=== PATIENT | male | born 1950 | race Caucasian/White ===

== ENCOUNTER 2020-05-31 10:40 | Outpatient (REF) | payer MEDICARE, SELFPAY ==
[2020-05-31 11:58] LABS: Alanine Aminotransferase 27 U/L (0-40); Anion Gap 13 (12-20); Aspartate Amino Transferase 23 U/L (5-37); Blood Urea Nitrogen 9 mg/dL (9-16); Calcium 9.6 mg/dL (8.4-10.2); Carbon Dioxide 27 mmol/L (22-29); Chloride 98 mmol/L (96-108); Cholesterol 174 mg/dL; Estimated Glomerular Filt Rate > 60; Glucose Random 136 mg/dL (60-115); HDL Cholesterol 44 mg/dL; LDL Cholesterol Calculated 96 mg/dl; Potassium 5.4 mmol/l (3.3-5.1); Sodium 133 mmol/L (135-145); Triglycerides 174 mg/dL
== END 2020-05-31 10:41 | disposition home or self-care (01) ==
LOC: HO.LAB 10:40
PROVIDERS: PCP Internal Medicine; Visit Provider Internal Medicine Cardiovascular Disease
DX: I25.10 Atherosclerotic heart disease of native coronary artery without angina pectoris (principal)
CPT/HCPCS: 80048; 80061; 84450; 84460

== ENCOUNTER 2020-08-08 12:33 | Outpatient (REF) | payer MEDICARE, SELFPAY ==
[2020-08-08 14:53] LABS: Cholesterol 174 mg/dL; HDL Cholesterol 43 mg/dL; LDL Cholesterol Calculated 81 mg/dl; Triglycerides 252 mg/dL
== END 2020-08-08 12:34 | disposition home or self-care (01) ==
LOC: HO.LAB 12:33
PROVIDERS: Visit Provider Internal Medicine
DX: E78.5 Hyperlipidemia, unspecified (principal)
CPT/HCPCS: 80061

== ENCOUNTER 2020-12-10 08:45 | Outpatient (REF) | payer MEDICARE, OTHER, SELFPAY ==
[2020-12-10 10:04] LABS: Estimated Average Glucose 120 mg/dL; Hemoglobin A1c % 5.8 %
[2020-12-10 10:15] LABS: Cholesterol 176 mg/dL; HDL Cholesterol 42 mg/dL; LDL Cholesterol Calculated 96 mg/dl; Triglycerides 193 mg/dL
== END 2020-12-10 08:46 | disposition home or self-care (01) ==
LOC: HO.LAB 08:45
PROVIDERS: PCP Internal Medicine; Visit Provider Internal Medicine
DX: E11.9 Type 2 diabetes mellitus without complications (principal)
CPT/HCPCS: 36415; 80061; 83036

== ENCOUNTER 2022-02-17 07:27 | Outpatient (REF) | payer MEDICARE, OTHER, SELFPAY ==
[2022-02-17 08:53] LABS: Cholesterol 186 mg/dL; Glucose Fasting 157 mg/dL (60-99); HDL Cholesterol 45 mg/dL; LDL Cholesterol Calculated 97 mg/dl; Triglycerides 223 mg/dL
[2022-02-17 09:04] LABS: Estimated Average Glucose 126 mg/dL
== END 2022-02-17 07:28 | disposition home or self-care (01) ==
LOC: HO.LAB 07:27
PROVIDERS: PCP Internal Medicine; Visit Provider Internal Medicine
DX: Z00.00 Encounter for general adult medical examination without abnormal findings (principal); E11.65 Type 2 diabetes mellitus with hyperglycemia
CPT/HCPCS: 36415; 80061; 82947; 83036

== ENCOUNTER 2022-05-15 10:51 | Outpatient (REF) | payer MEDICARE, OTHER, SELFPAY ==
[2022-05-15 12:25] LABS: Estimated Average Glucose 123 mg/dL; Hemoglobin A1c % 5.9 %
[2022-05-15 13:02] LABS: Prostate Specific Antigen 1.28 ng/mL (<0.05-4.0)
[2022-05-15 13:20] LABS: Cholesterol 173 mg/dL; Glucose Fasting 122 mg/dL (60-99); HDL Cholesterol 40 mg/dL; LDL Cholesterol Calculated 92 mg/dl; Triglycerides 207 mg/dL
== END 2022-05-15 10:52 | disposition home or self-care (01) ==
LOC: HO.LAB 10:51
PROVIDERS: Absent Provider Internal Medicine; PCP Internal Medicine; Visit Provider Nurse Practitioner Family
DX: Z12.5 Encounter for screening for malignant neoplasm of prostate (principal); E11.9 Type 2 diabetes mellitus without complications; E78.5 Hyperlipidemia, unspecified
CPT/HCPCS: 36415; 80061; 82947; 83036; 84153

== ENCOUNTER 2023-02-18 07:36 | Outpatient (REF) | payer MEDICARE, OTHER, SELFPAY ==
[2023-02-18 07:49] LABS: MANUAL DIFF FLAG NO
[2023-02-18 08:51] LABS: Basophils Percent Auto 0.5 % (0-2); Eosinophils Absolute Auto 0.1 X10*3/uL (0.0-0.4); Eosinophils Percent Auto 1.9 % (0-4); Hematocrit 45.3 % (42.0-52.0); Hemoglobin 15.5 g/dl (14.0-18.0); Imm Gran Abs Auto 0.03 X10*3/uL (0.00-0.03); Imm Gran Pct Auto 0.5 % (0.0-0.4); Lymphocytes Absolute Auto 1.3 X10*3/uL (1.2-4.9); Lymphocytes Percent Auto 20.5 % (20-40); Mean Corpuscular HGB Conc 34.2 g/dl (31.0-36.0); Mean Corpuscular Hemoglobin 32.1 pg (27.0-33.0); Mean Corpuscular Volume 93.8 fL (80.0-98.0); Mean Platelet Volume 9.7 fL (9.4-12.4); Monocytes Absolute Auto 0.6 X10*3/uL (0.1-1.2); Monocytes Percent Auto 10.1 % (2-11); Neutrophils Absolute Auto 4.2 x10*3/uL (2.0-8.3); Neutrophils Percent Auto 66.5 % (45-73); Platelet Count 257 X10*3/uL (160-400); Red Blood Count 4.83 X10*6/uL (4.60-5.80); White Blood Count 6.3 X10*3/uL (4.8-10.8)
[2023-02-18 09:00] LABS: Estimated Average Glucose 123 mg/dL; Hemoglobin A1c % 5.9 %
[2023-02-18 09:41] LABS: Alanine Aminotransferase 38 U/L (0-40); Albumin Level 4.8 g/dL (3.5-5.0); Alkaline Phosphatase 55 U/L (39-117); Anion Gap 19 (12-20); Aspartate Amino Transferase 30 U/L (5-37); Bilirubin Total 2.7 mg/dL (0.0-1.0); Blood Urea Nitrogen 6 mg/dL (9-16); Calcium 10.1 mg/dL (8.4-10.2); Carbon Dioxide 21 mmol/L (22-29); Chloride 100 mmol/L (96-108); Cholesterol 160 mg/dL; Estimated Glomerular Filt Rate > 60; Glucose Fasting 160 mg/dL (60-99); HDL Cholesterol 44 mg/dL; LDL Cholesterol Calculated 69 mg/dl; Potassium 5.9 mmol/L (3.3-5.1); Sodium 134 mmol/L (135-145); Triglycerides 236 mg/dL
== END 2023-02-18 07:37 | disposition home or self-care (01) ==
LOC: HO.LAB 07:36
PROVIDERS: Absent Provider Internal Medicine Cardiovascular Disease; PCP Internal Medicine; Visit Provider Internal Medicine
DX: D64.9 Anemia, unspecified (principal); N28.9 Disorder of kidney and ureter, unspecified; E78.5 Hyperlipidemia, unspecified; R73.9 Hyperglycemia, unspecified
CPT/HCPCS: 36415; 80053; 80061; 83036; 85025

== ENCOUNTER 2023-03-02 08:35 | Outpatient (AMB) | payer MEDICARE, OTHER, SELFPAY ==
--- NOTE | 2023-03-02 08:41 | A.OFFPC_ITS ---
Vital Signs 03/02/23 08:42 Height 5 ft 5 in Weight 169 lb 6 oz BMI 28.2 BP 120/70 Blood Pressure Location Lt brachial Position Sitting Pulse 65 Pulse Source Pulse Oximeter Pulse Oximetry (%) 99 Oxygen Delivery Method Room Air Intake Visit Reasons: 6mth f/u Intake Note: Patient is here to follow up on DM, Hyperlipidemia, HTN. 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 per policy Accompanied by: Self / Same As Patient Allergies No Known Allergies Allergy (Verified 03/02/23 08:42) Medication List - Last Reconciled 03/02/23 by David Morton MD aspirin 81 mg PO DAILY atenolol 100 mg PO DAILY atorvastatin 80 mg PO DAILY blood sugar diagnostic (FreeStyle Lite Strips) test blood sugars once a day fluoxetine 20 mg PO DAILY lisinopril 40 mg PO DAILY metformin 1,000 mg (2 x 500 mg) PO BID Tobacco use date assessed: 03/02/23 Fall risk assessment: No Falls in past year Last assessed Fall Risk: 03/02/23 Dental Screening Dental Screen Date: 03/02/23 Did you have a dental visit in the last 12 months?: Yes Did you have a dental problem in the last 6 months where you did not have access to dental care?: No Was dental information given to patient?: Patient has dentist HPI 6mth f/u HPI Details DM HTN and hyperlipidemia; doing well; compliant [facility] Medical History Diabetes mellitus Diabetes mellitus with coincident hypertension Hyperlipidemia Hyperlipidemia associated with type 2 diabetes mellitus Pre-op exam Screening for prostate cancer Surgical History History of ankle surgery History of cataract surgery History of colonoscopy History of inguinal hernia repair History of rectal polypectomy Family History Father Stroke Mother Stroke Brother Colon polyps Brother Prostate cancer Brother CAD (coronary artery disease) Social History Housing: House Alcohol intake: current Alcohol intake frequency: 0-2 drinks per day Patient Tobacco Use Status: Never used Tobacco e-Cigarette/Vaping Use: Never Used Second Hand Smoke Exposure: No service: Yes Current occupational status: retired Cognitive needs: No Hearing needs: No Vision needs: No Questionnaire PHQ-9 Over the last 2 weeks, how often have you been bothered by any of the following problems? Depression Screening Interpretation: Negative Source: Developed by Drs. Todd Martinez, Shyann Braga, Tae Torrez and colleagues, with an educational kaylin from [employer]). Thrive Questionnaire Date Thrive assessed: 09/01/22 Currently or been in a relationship where the following occur: no concerns reported PJ-7 AMB Questionnaire PJ-7 Date PJ - 7 assessed: 09/01/22 Source: Developed by Drs. Todd Martinez, Shyann Braga, Tae Torrez and colleagues, with an educational kaylin from [employer] ([employer]). Review of Systems Const Denies chills, Denies headache(s) and Denies weight loss ENT Denies headache(s) Card Denies chest pain, Denies syncope, Denies irregular heart rhythm and Denies dyspnea Resp Denies chest congestion, Denies cough and Denies dyspnea GI Denies abdominal pain, Denies change in stool character, Denies nausea and Denies vomiting Musc Denies deformity and Denies joint swelling Neuro Denies syncope and Denies headache(s) Physical exam (Primary Care) Vital Signs: Last Vital Signs Pulse 65 03/02/23 08:42 BP 120/70 03/02/23 08:42 Pulse Ox 99 03/02/23 08:42 Oxygen Delivery Method Room Air 03/02/23 08:42 BMI result Body Mass Index 28.2 Tobacco/Smoking Status: Tobacco use Status Tobacco use date assessed 03/02/23 03/02/23 08:46 Patient Tobacco Use Status Never used Tobacco 03/02/23 08:46 e-Cigarette/Vaping Use Never Used 03/02/23 08:46 Depression Screening Interpretation: Negative Thrive Assessment: Date of Thrive Assessment Date Thrive assessed 09/01/22 03/02/23 08:46 Currently or been in a relationship where the following occur: no concerns reported Const General: cooperative, comfortable and no acute distress Resp Effort & Inspection: normal respiratory effort Auscultation: clear to auscultation bilaterally Percussion: percussion normal Cardio Jugular venous distension: no JVD Rate: regular rate Rhythm: regular rhythm GI Inspection: Yes normal to inspection Assessment and Plan Assessment & Plan (1) Hypertension: Code(s): I10 - Essential (primary) hypertension Plan: stable; same rx (2) Hyperlipidemia: Code(s): E78.5 - Hyperlipidemia, unspecified Plan: stable ;same rx (3) Diabetes mellitus with coincident hypertension: Code(s): E11.9 - Type 2 diabetes mellitus without complications; I10 - Essential (primary) hypertension Plan: do labs Orders: Orders Glucose Fasting Today R73.9 - Hyperglycemia, unspecified Hemoglobin A1c Today R73.9 - Hyperglycemia, unspecified Lipid Panel Today E78.5 - Hyperlipidemia, unspecified Coding Level of Care Code Est Pt Level 4 (85255) Diagnoses Hypertension I10 Hyperlipidemia E78.5 Diabetes mellitus with coincident hypertension E11.9; I10
[2023-03-02 08:42] VITALS: BP 120/70; PULSE 65; O2SAT 99; BMI 28.2
== END 2023-03-02 08:57 | disposition home or self-care (01) ==
PROVIDERS: Visit Provider Internal Medicine
DX: I10 Essential (primary) hypertension (principal); E78.5 Hyperlipidemia, unspecified; E11.9 Type 2 diabetes mellitus without complications
CPT/HCPCS: 99214

== ENCOUNTER 2023-05-19 10:10 | Outpatient (AMB) | payer MEDICARE, OTHER, SELFPAY ==
--- NOTE | 2023-05-19 10:14 | AM.OFFVISMDC ---
Intake Vital Signs 05/19/23 10:15 05/19/23 10:53 Height 5 ft 5 in Weight 170 lb BMI 28.3 BP 158/90 H 160/90 H Blood Pressure Location Lt brachial Lt brachial Position Sitting Sitting Pulse 67 Pulse Source Pulse Oximeter Temp Source Skin Pulse Oximetry (%) 100 Oxygen Delivery Method Room Air Intake Visit Reasons: V [id number] Allergies No Known Allergies Allergy (Verified 05/19/23 10:42) Medication List - Last Reconciled 05/19/23 by MORGAN oMran aspirin 81 mg PO DAILY atenolol 100 mg PO DAILY atorvastatin 80 mg PO DAILY blood sugar diagnostic (FreeStyle Lite Strips) test blood sugars once a day fluoxetine 20 mg PO DAILY lisinopril 40 mg PO DAILY metformin 1,000 mg (2 x 500 mg) PO BID HPI SWV G0439 HPI Details Patient is a 73-year-old male who presents today for subsequent wellness visit. Patient of Dr. Morton. Today we discussed patient's need for tetanus vaccine and colon cancer screening. Patient has declined a colonoscopy or Cologuard, he reports that he will think about this. He denies changes in bowels, no blood in stool. We also discussed his need for prostate cancer screening. Cahto of care was reviewed with the patient and he was provided with a screening schedule. End of life planning was discussed with the patient and he was provided with healthcare proxy and MOLST forms. COUNTS INCLUDE 234 BEDS AT THE [facility] Medical History Screening for prostate cancer Hyperlipidemia associated with type 2 diabetes mellitus Diabetes mellitus with coincident hypertension Pre-op exam Diabetes mellitus Hyperlipidemia Surgical History History of colonoscopy History of cataract surgery History of ankle surgery History of rectal polypectomy History of inguinal hernia repair Family History Father Stroke Mother Stroke Brother Colon polyps Brother Prostate cancer Brother CAD (coronary artery disease) Social History Housing: House Alcohol intake: current Alcohol intake frequency: 0-2 drinks per day Patient Tobacco Use Status: Never used Tobacco e-Cigarette/Vaping Use: Never Used Second Hand Smoke Exposure: No service: Yes Current occupational status: retired Cognitive needs: No Hearing needs: No Vision needs: No Questionnaire Medicare Wellness Checkup [age] What gender do you identify with?: male During the past 4 weeks, how much have you been bothered by emotional problems such as feeling anxious, depressed, irritable, sad or downhearted, and blue?: slightly During the past 4 weeks, has your physical & emotional health limited your social activities with family, friends, neighbors, or groups?: slightly During the past 4 weeks, how much bodily pain have you generally had?: no pain During the past 4 weeks, was someone available to help you if you needed & wanted help?: no, not at all During the past 4 weeks, what was the hardest physical activity you could do for at least 2 minutes?: moderate Can you get to places out of walking distance without help? (For eg., can you travel alone on buses, taxis or drive your car?): Yes Can you go shopping for groceries or clothes without someone's help?: Yes Can you prepare your own meals?: Yes Can you do your housework without help?: Yes Because of any health problems, do you need the help of another person with your personal care needs such as eating, bathing, dressing or getting around the house?: No Can you handle your own money without help?: Yes During the past 4 weeks, how would you rate your health in general?: good During the past 4 weeks how have things been going for you?: pretty well Are you having difficulties driving your car?: no Do you always fasten your seat belt when you are in a car?: yes, usually During past 4 weeks, have you been bothered by the following: never: Falling or dizzy when standing up, Sexual problems?, Teeth or denture problems?, Problems using the telephone? and Tiredness or fatigue? and seldom: Trouble eating well? Have you fallen 2 or more times in the past year?: No Are you afraid of falling?: Yes Are you a smoker?: no During the past 4 weeks, how many drinks of wine, beer, or other alcoholic beverages did you have?: 2-5 drinks per week Do you exercise for about 20 minutes 3 or more times a week?: yes, most of the time Have you been given information to help with the following?: no: Hazards in your house that might hurt you? and no: Keeping track of your medications? How often do you have trouble taking medicines the way you have been told to take them?: I always take medicine as prescribed How confident are you that you can control & manage most of your health problems?: somewhat confident What is your race?: White Mini Mental State Exam (MMSE) Orientation What is the (year) (season) (date) (day) (month)?: year, season, date, day and month Score Score: 5 Activity of Daily Living Bathing - sponge bath, tub bath or shower: receives no assistance (gets in/out by self, if usual bathing means Dressing - getting clothes from closets & drawers, including inner/outer garments & fasteners.: gets clothes & gets completely dressed without help Toileting - going to the 'toilet room' for urine/bowel elimination & cleaning self/arranging clothes: goes to toilet room, cleans self, arranges clothes without help Transfer: moves in & out of bed and chair without help (may use support object) Continence: controls urination/bowel movements completely by self Feeding: feeds self without help Total Score: 0 Information obtained from: patient Using telephone: independent Traveling: independent Shopping: independent Preparing meals: independent Housework: independent Taking medicine: independent Managing money: independent PHQ-9 Over the last 2 weeks, how often have you been bothered by any of the following problems? 1. Little interest or pleasure in doing things: not at all 2. Feeling down, depressed, or hopeless: not at all 4. Feeling tired or having little energy: several days 5. Poor appetite or overeating: several days 6. Feeling bad about yourself - or that you are a failure or have let yourself or your family down: not at all 7. Trouble concentrating on things, such as reading the newspaper or watching television: several days 8. Moving or speaking so slowly that other people could have noticed. Or the opposite - being so fidgety or restless that you have been moving around a lot more than usual: not at all 9. Thoughts that you would be better off or of hurting yourself in some way: not at all Depression Screening Interpretation: Negative Depression Screening Done: Yes 91776 - PHQ-9 Billing: Yes Source: Developed by DrsBobby Martinez, Shyann Braga, Tae Torrez and colleagues, with an educational kaylin from [email or web address]. Physical Exam Vital Signs: Last Vital Signs Pulse 67 05/19/23 10:15 BP 158/90 H 05/19/23 10:15 Pulse Ox 100 05/19/23 10:15 Oxygen Delivery Method Room Air 05/19/23 10:15 BMI result Body Mass Index 28.3 Const General: cooperative and no acute distress Orientation/consciousness: patient oriented x3 HEENT Other: Whisper test: fail Neuro Other: Balance: Normal Get up and walk: able to Romberg: negative Tandem gait: unable to General: patient oriented x3 Office Procedures Flu Questionnaire Does the patient have a severe egg allergy?: No Does the patient have severe life threatening allergies?: No Does the patient have a fever or illness today?: No Has the patient ever had Guillain-[place] Syndrome?: No Has the patient ever had any past reaction to a flu shot?: No Results AMB Hemoglobin A1c AMB Hemoglobin A1c 6.5 % Last Edit by CONCHA Astudillo on 05/19/23 10:31 Immunizations flu vacc [id number] 6mos up(PF) 60 mcg(15 mcgx4)/0.5 mL IM syringe Performing Provider: MORGAN Moran [facility] Administered by: CONCHA Astudillo on 05/19/23 10:31 Dose Route Admin Location Dispensed Lot Number Expiration Date NDC E Commerce Director 0.5 mL IM Left Deltoid 0.5 mL [id number] 02/07/24 [id number] [employer] VIS Given Date VIS Provided VIS Publication Date 05/19/23 Single Vaccine 21 Eligibility Eligibility Date Funding Source Not [facility] Eligible 05/19/23 Private Results Reviewed Results Reviewed: Laboratory Last Values Hgb A1c (Clinic) 6.5 % (4.0-6.0) H 05/19/23 10:30 Assessment & Plan Assessment & Plan (1) Adult general medical exam: Code(s): Z00.00 - Encounter for general adult medical examination without abnormal findings (2) Screening for prostate cancer: Code(s): Z12.5 - Encounter for screening for malignant neoplasm of prostate (3) Hyperlipidemia associated with type 2 diabetes mellitus: Code(s): E11.69 - Type 2 diabetes mellitus with other specified complication; E78.5 - Hyperlipidemia, unspecified Plan: Continue current treatment Low-cholesterol diet (4) Diabetes mellitus with coincident hypertension: Code(s): E11.9 - Type 2 diabetes mellitus without complications; I10 - Essential (primary) hypertension Plan: Continue current treatment Low-sodium diet Goal BP equal or less than 140/90 Patient reports blood pressures at home in 120s/80s Patient is to continue follow-up with gate supervisor Dr. Lu (5) Diabetes mellitus: Code(s): E11.9 - Type 2 diabetes mellitus without complications Plan: A1c 6.5 today Continue current treatment Low-carbohydrate diet (6) Colonoscopy refused: Code(s): Z53.20 - Procedure and treatment not carried out because of patient's decision for unspecified reasons Orders: Orders Influenza [id number] Immunization Today Z23 - Encounter for immunization Prostate Specific Antigen Today Z12.5 - Encounter for screening for malignant neoplasm of prostate AMB Hemoglobin A1c Today E11.9 - Type 2 diabetes mellitus without complications Coding Level of Care Code Medicare Subsequent (G0439) Diagnoses Adult general medical exam Z00.00 Screening for prostate cancer Z12.5 Hyperlipidemia associated with type 2 diabetes mellitus E11.69; E78.5 Diabetes mellitus with coincident hypertension E11.9; I10 Diabetes mellitus E11.9 Colonoscopy refused Z53.20 CPT Codes Advance Care Planning - Time spent: 1-15 minutes, not on file ([id number]) Advance Care Planning Date of discussion: 05/19/23 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
[2023-05-19 10:15] VITALS: BP 158/90; PULSE 67; O2SAT 100; BMI 28.3
[2023-05-19 10:53] VITALS: BP 160/90
== END 2023-05-19 10:57 | disposition home or self-care (01) ==
PROVIDERS: Visit Provider Nurse Practitioner Family
DX: Z00.00 Encounter for general adult medical examination without abnormal findings (principal); E11.69 Type 2 diabetes mellitus with other specified complication; E11.9 Type 2 diabetes mellitus without complications; E78.5 Hyperlipidemia, unspecified; Z23 Encounter for immunization; I10 Essential (primary) hypertension; Z53.20 Procedure and treatment not carried out because of patient's decision for unspecified reasons
CPT/HCPCS: 1124F; 83036; 90471; 90686; G0439

== ENCOUNTER 2023-05-20 09:13 | Outpatient (REF) | payer MEDICARE, OTHER, SELFPAY | END 2023-05-20 09:14 | disposition home or self-care (01) | LOC: HO.LAB 09:13 | PROVIDERS: PCP Internal Medicine; Visit Provider Nurse Practitioner Family | DX: Z12.5 Encounter for screening for malignant neoplasm of prostate (principal) | CPT/HCPCS: 36415; 84153 ==

== ENCOUNTER 2023-09-24 10:54 | Outpatient (AMB) | payer MEDICARE, OTHER, SELFPAY ==
[2023-09-24 11:05] VITALS: BP 172/94; PULSE 80; O2SAT 97; BMI 28.6
--- NOTE | 2023-09-24 11:05 | MHC.PC.OV ---
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 per policy Accompanied by: Self / Same As Patient Allergies No Known Allergies Allergy (Verified 09/24/23 11:06) Medication List - Last Reconciled 09/24/23 by David Morton MD aspirin 81 mg PO DAILY atenolol 100 mg PO DAILY atorvastatin 80 mg PO DAILY blood sugar diagnostic (FreeStyle Lite Strips) test blood sugars once a day fluoxetine 20 mg PO DAILY lisinopril 40 mg PO DAILY metformin 1,000 mg (2 x 500 mg) PO BID Tobacco use date assessed: 09/24/23 Fall risk assessment: No Falls in past year Last assessed Fall Risk: 09/24/23 Dental Screening Dental Screen Date: 09/24/23 Did you have a dental visit in the last 12 months?: Yes Did you have a dental problem in the last 6 months where you did not have access to dental care?: No Was dental information given to patient?: Patient has dentist HPI 6mth f/u HPI Details HTN hyperlipidemia and DM; doing well and stable [facility] Medical History Screening for prostate cancer Hyperlipidemia associated with type 2 diabetes mellitus Diabetes mellitus with coincident hypertension Pre-op exam Diabetes mellitus Hyperlipidemia Surgical History History of colonoscopy History of cataract surgery History of ankle surgery History of rectal polypectomy History of inguinal hernia repair Family History Father Stroke Mother Stroke Brother Colon polyps Brother Prostate cancer Brother CAD (coronary artery disease) Social History Housing: House Alcohol intake: current Alcohol intake frequency: 0-2 drinks per day Patient Tobacco Use Status: Never used Tobacco e-Cigarette/Vaping Use: Never Used Second Hand Smoke Exposure: No service: Yes Current occupational status: retired Cognitive needs: No Hearing needs: No Vision needs: No Questionnaire PHQ-9 Over the last 2 weeks, how often have you been bothered by any of the following problems? 1. Little interest or pleasure in doing things: not at all 2. Feeling down, depressed, or hopeless: not at all 4. Feeling tired or having little energy: several days 5. Poor appetite or overeating: several days 6. Feeling bad about yourself - or that you are a failure or have let yourself or your family down: not at all 7. Trouble concentrating on things, such as reading the newspaper or watching television: several days 8. Moving or speaking so slowly that other people could have noticed. Or the opposite - being so fidgety or restless that you have been moving around a lot more than usual: not at all 9. Thoughts that you would be better off or of hurting yourself in some way: not at all Depression Screening Interpretation: Negative Depression Screening Done: Yes 68869 - PHQ-9 Billing: Yes Source: Developed by Drs. Todd Martinez, Shyann Braga, Tae Torrez and colleagues, with an educational kaylin from [employer]. Thrive Questionnaire Date Thrive assessed: 09/24/23 I am a: Patient What is your living situation today?: I have a steady place to live Within the past 12 months, did the food you bought not last and you didn't have the money to get more?: Never true Within the past 12 months, did you worry whether your food would run out before you got money to buy more?: Never true Do you have trouble paying for medicines?: No Do you have trouble getting transportation to medical appointments?: No Do you have trouble paying your heating and electricity bill?: No Do you have trouble taking care of your child, family member or friend?: No Do you have trouble with day-to-day activities such as bathing, preparing meals, shopping, managing finances, etc.?: No Are you currently unemployed and looking for a job?: No Are you interested in more education?: No Please select the resources that you would like help with: None THRIVE Score: 0 AUDIT C Alcohol Use Questionnaire (AUDIT-C) 1. How often do you have a drink containing alcohol?: 4 or more times a week 2. How many drinks containing alcohol do you have on a typical day when you are drinking?: 1 or 2 3. How often do you have six or more drinks on one occasion?: Never Total Score: 4 Score Reviewed/Action Taken: Yes PJ-7 AMB Questionnaire PJ-7 Date PJ - 7 assessed: 09/24/23 Feeling nervous, anxious, or on edge: 0 = Not at all Not being able to stop or control worryin = Not at all Worrying too much about different things: 0 = Not at all Trouble relaxin = Not at all Being so restless that it is hard to sit still: 0 = Not at all Becoming easily annoyed or irritable: 0 = Not at all Feeling afraid as if something awful might happen: 0 = Not at all Total PJ-7 score (0-4 normal; 5-9 mild; 10-14 moderate; 15-21 severe): 0 Source: Developed by Drs. Todd Martinez, Shyann Braga, Tae Torrez and colleagues, with an educational kaylin from [employer]. Review of Systems Const Denies chills, Denies headache(s) and Denies weight loss ENT Denies headache(s) Card Denies chest pain, Denies syncope, Denies irregular heart rhythm and Denies dyspnea Resp Denies chest congestion, Denies cough and Denies dyspnea GI Denies abdominal pain, Denies change in stool character, Denies nausea and Denies vomiting Musc Denies deformity and Denies joint swelling Neuro Denies syncope and Denies headache(s) Physical exam (Primary Care) Vital Signs: Last Vital Signs Pulse 80 09/24/23 11:05 BP 172/94 H 09/24/23 11:05 Pulse Ox 97 09/24/23 11:05 Oxygen Delivery Method Room Air 09/24/23 11:05 BMI result Body Mass Index 28.6 Tobacco/Smoking Status: Tobacco use Status Tobacco use date assessed 09/24/23 09/24/23 11:07 Patient Tobacco Use Status Never used Tobacco 09/24/23 11:07 e-Cigarette/Vaping Use Never Used 09/24/23 11:07 Depression Screening Interpretation: Negative Thrive Assessment: Date of Thrive Assessment Date Thrive assessed 09/24/23 09/24/23 11:07 Const General: cooperative, comfortable, no acute distress and alert Neck Neck: Yes no lymphadenopathy Thyroid: Thyroid normal Resp Effort & Inspection: normal respiratory effort Auscultation: clear to auscultation bilaterally Percussion: percussion normal Cardio Jugular venous distension: no JVD Palpation: normal PMI Rate: regular rate Rhythm: regular rhythm Heart sounds: S1 normal heart sound present and S2 normal heart sound present GI Inspection: Yes normal to inspection Palpation (GI): No hepatosplenomegaly present Skin General skin exam: no rashes or lesions noted Extrem General: Yes no clubbing, cyanosis or edema Results AMB Hemoglobin A1c AMB Hemoglobin A1c 6.7 % Last Edit by CONCHA Boss on 09/24/23 11:18 Results Reviewed Results Reviewed: Laboratory Last Values Hgb A1c (Clinic) 6.7 % (4.0-6.0) H 09/24/23 11:07 Assessment and Plan Assessment & Plan (1) Diabetes mellitus with coincident hypertension: Code(s): E11.9 - Type 2 diabetes mellitus without complications; I10 - Essential (primary) hypertension Plan: stable; do labs (2) Hypertension: Code(s): I10 - Essential (primary) hypertension Plan: stable; same rx (3) Hyperlipidemia: Code(s): E78.5 - Hyperlipidemia, unspecified Plan: stable; same rx Orders: Orders Lipid Panel Today E78.5 - Hyperlipidemia, unspecified Comprehensive [place]. Panel Fast Today N28.9 - Disorder of kidney and ureter, unspecified AMB Hemoglobin A1c Today E11.9 - Type 2 diabetes mellitus without complications, I10 - Essential (primary) hypertension Complete Blood Count Auto Diff Today D64.9 - Anemia, unspecified Thyroid Stimulating Hormone Today E03.9 - Hypothyroidism, unspecified Hemoglobin A1c Today R73.9 - Hyperglycemia, unspecified Coding Level of Care Code Est Pt Level 4 (98995) Diagnoses Diabetes mellitus with coincident hypertension E11.9; I10 Hypertension I10 Hyperlipidemia E78.5
== END 2023-09-24 11:21 | disposition home or self-care (01) ==
PROVIDERS: PCP Internal Medicine; Visit Provider Internal Medicine
DX: E11.69 Type 2 diabetes mellitus with other specified complication (principal); I10 Essential (primary) hypertension; E78.5 Hyperlipidemia, unspecified
CPT/HCPCS: 83036; 99214

== ENCOUNTER 2023-09-26 08:01 | Outpatient (REF) | payer MEDICARE, OTHER, SELFPAY ==
[2023-09-26 08:23] LABS: MANUAL DIFF FLAG NO
[2023-09-26 09:00] LABS: Basophils Percent Auto 0.3 % (0-2); Eosinophils Absolute Auto 0.3 X10*3/uL (0.0-0.4); Hematocrit 41.5 % (42.0-52.0); Hemoglobin 13.9 g/dl (14.0-18.0); Imm Gran Abs Auto 0.03 X10*3/uL (0.00-0.03); Imm Gran Pct Auto 0.3 % (0.0-0.4); Lymphocytes Absolute Auto 1.1 X10*3/uL (1.2-4.9); Lymphocytes Percent Auto 12.4 % (20-40); Mean Corpuscular HGB Conc 33.5 g/dl (31.0-36.0); Mean Corpuscular Hemoglobin 32.2 pg (27.0-33.0); Mean Corpuscular Volume 96.1 fL (80.0-98.0); Monocytes Absolute Auto 0.7 X10*3/uL (0.1-1.2); Neutrophils Absolute Auto 6.6 x10*3/uL (2.0-8.3); Platelet Count 234 X10*3/uL (160-400); Red Blood Count 4.32 X10*6/uL (4.60-5.80); Red Cell Distribution Width 12.6 % (11.0-16.0); White Blood Count 8.6 X10*3/uL (4.8-10.8)
[2023-09-26 09:19] LABS: Estimated Average Glucose 128 mg/dL; Hemoglobin A1c % 6.1 % (<6.0)
[2023-09-26 09:41] LABS: Alanine Aminotransferase 26 U/L (0-40); Albumin Level 4.3 g/dL (3.5-5.0); Alkaline Phosphatase 70 U/L (39-117); Anion Gap 11 (12-20); Aspartate Amino Transferase 18 U/L (5-37); Bilirubin Total 1.4 mg/dL (0.0-1.0); Blood Urea Nitrogen 10 mg/dL (9-16); Calcium 9.2 mg/dL (8.4-10.2); Carbon Dioxide 26 mmol/L (22-29); Chloride 104 mmol/L (96-108); Cholesterol 154 mg/dL (<200); Estimated Glomerular Filt Rate > 60; Glucose Fasting 152 mg/dL (60-99); HDL Cholesterol 34 mg/dL (>40); LDL Cholesterol Calculated 75 mg/dL (<100); Potassium 4.5 mmol/L (3.3-5.1); Sodium 136 mmol/L (135-145); Total Protein 7.1 g/dL (6.5-8.0); Triglycerides 228 mg/dL (<150)
[2023-09-26 09:59] LABS: Thyroid Stimulating Hormone 2.21 uIU/mL (0.32-4.0)
== END 2023-09-26 08:02 | disposition home or self-care (01) ==
LOC: HO.LAB 08:01
PROVIDERS: PCP Internal Medicine; Visit Provider Internal Medicine
DX: D64.9 Anemia, unspecified (principal); E03.9 Hypothyroidism, unspecified; E78.5 Hyperlipidemia, unspecified; N28.9 Disorder of kidney and ureter, unspecified; R73.9 Hyperglycemia, unspecified
CPT/HCPCS: 36415; 80053; 80061; 83036; 84443; 85025

== ENCOUNTER 2023-12-09 11:10 | Outpatient (AMB) | payer MEDICARE, OTHER, SELFPAY ==
[2023-12-09 11:12] VITALS: BP 152/86; PULSE 87; O2SAT 99; BMI 28.1
--- NOTE | 2023-12-09 11:12 | A.OFFPC_ITS ---
Vital Signs 12/09/23 11:12 Height 5 ft 5 in Weight 169 lb BMI 28.1 BP 152/86 H Blood Pressure Location Lt brachial Position Sitting Pulse 87 Pulse Source Pulse Oximeter Pulse Oximetry (%) 99 Oxygen Delivery Method Room Air Intake Visit Reasons: 3 month follow up Photographic Colorist Required: No Siding Installer: Present Accompanied by: Daughter Allergies No Known Allergies Allergy (Verified 12/09/23 11:12) Medication List - Last Reconciled 12/10/23 by David Morton MD aspirin 81 mg PO DAILY atenolol 100 mg PO DAILY atorvastatin 80 mg PO DAILY blood sugar diagnostic (FreeStyle Lite Strips) test blood sugars once a day fluoxetine 20 mg PO DAILY lisinopril 40 mg PO DAILY metformin 1,000 mg (2 x 500 mg) PO BID Tobacco use date assessed: 09/24/23 Fall risk assessment: No Falls in past year Last assessed Fall Risk: 12/09/23 Dental Screening Dental Screen Date: 09/24/23 HPI 3 month follow up HPI Details family concerned about cognitive decline PFSH Medical History Screening for prostate cancer Hyperlipidemia associated with type 2 diabetes mellitus Diabetes mellitus with coincident hypertension Pre-op exam Diabetes mellitus Hyperlipidemia Surgical History History of colonoscopy History of cataract surgery History of ankle surgery History of rectal polypectomy History of inguinal hernia repair Family History Father Stroke Mother Stroke Brother Colon polyps Brother Prostate cancer Brother CAD (coronary artery disease) Social History Housing: House Alcohol intake: current Alcohol intake frequency: 0-2 drinks per day Patient Tobacco Use Status: Never used Tobacco e-Cigarette/Vaping Use: Never Used Second Hand Smoke Exposure: No service: Yes Current occupational status: retired Cognitive needs: No Hearing needs: No Vision needs: No Questionnaire Thrive Questionnaire Date Thrive assessed: 09/24/23 PJ-7 AMB Questionnaire PJ-7 Date PJ - 7 assessed: 09/24/23 Source: Developed by Drs. Todd Martinez, Shyann Braga, Tae Torrez and colleagues, with an educational kaylin from [employer]. Review of Systems Const Denies chills, Denies headache(s) and Denies weight loss ENT Denies headache(s) Card Denies chest pain, Denies syncope, Denies irregular heart rhythm and Denies dyspnea Resp Denies chest congestion, Denies cough and Denies dyspnea GI Denies abdominal pain, Denies change in stool character, Denies nausea and Denies vomiting Musc Denies deformity and Denies joint swelling Neuro Denies syncope and Denies headache(s) Physical exam (Primary Care) Vital Signs: Last Vital Signs Pulse 87 12/09/23 11:12 BP 152/86 H 12/09/23 11:12 Pulse Ox 99 12/09/23 11:12 Oxygen Delivery Method Room Air 12/09/23 11:12 BMI result Body Mass Index 28.1 Tobacco/Smoking Status: Tobacco use Status Tobacco use date assessed 09/24/23 12/09/23 11:13 Patient Tobacco Use Status Never used Tobacco 12/09/23 11:13 e-Cigarette/Vaping Use Never Used 12/09/23 11:13 Thrive Assessment: Date of Thrive Assessment Date Thrive assessed 09/24/23 12/09/23 11:13 Const General: cooperative, comfortable, no acute distress and alert Neck Neck: Yes no lymphadenopathy Thyroid: Thyroid normal Resp Effort & Inspection: normal respiratory effort Auscultation: clear to auscultation bilaterally Percussion: percussion normal Cardio Jugular venous distension: no JVD Palpation: normal PMI Rate: regular rate Rhythm: regular rhythm Heart sounds: S1 normal heart sound present and S2 normal heart sound present GI Inspection: Yes normal to inspection Palpation (GI): No hepatosplenomegaly present Skin General skin exam: no rashes or lesions noted Extrem General: Yes no clubbing, cyanosis or edema Results AMB Hemoglobin A1c AMB Hemoglobin A1c 6.5 % Last Edit by CONCHA Boss on 12/09/23 11:35 Results Reviewed Results Reviewed: Laboratory Last Values Hgb A1c (Clinic) 6.5 % (4.0-6.0) H 12/09/23 11:13 Assessment and Plan Assessment & Plan (1) Cognitive decline: Code(s): R41.89 - Other symptoms and signs involving cognitive functions and awareness Plan: labs and brain ct Orders: Orders Erythrocyte Sedimentation Rate 12/09/23 F03.90 - Unspecified dementia, unspecified severity, without behavioral disturbance, psychotic disturbance, mood disturbance, and anxiety Lyme IgG/IgM w/reflex to WB 12/09/23 R41.89 - Other symptoms and signs involving cognitive functions and awareness CT head/brain wo IV con 12/09/23 F03.90 - Unspecified dementia, unspecified severity, without behavioral disturbance, psychotic disturbance, mood disturbance, and anxiety AMB Hemoglobin A1c 12/09/23 E11.9 - Type 2 diabetes mellitus without complications, I10 - Essential (primary) hypertension Vitamin B12 and Folate 12/09/23 F03.90 - Unspecified dementia, unspecified severity, without behavioral disturbance, psychotic disturbance, mood disturbance, and anxiety Referrals Speech and Hearing Referral H91.90 - Unspecified hearing loss, unspecified ear Coding Level of Care Code Est Pt Level 3 (20864) Diagnoses Cognitive decline R41.89
== END 2023-12-09 13:57 | disposition home or self-care (01) ==
PROVIDERS: PCP Internal Medicine; Visit Provider Internal Medicine
DX: E11.9 Type 2 diabetes mellitus without complications (principal); I10 Essential (primary) hypertension
CPT/HCPCS: 83036; 99213

== ENCOUNTER 2023-12-09 11:49 | Outpatient (REF) | payer MEDICARE, OTHER, SELFPAY ==
[2023-12-09 13:15] LABS: Erythrocyte Sedimentation Rate 6 MM/HR (0-15)
[2023-12-09 13:21] LABS: Folate 7.1 ng/mL (> or = 4.0); Vitamin B12 < 148 pg/mL (200-900)
[2023-12-10 23:44] LABS: Lyme Abs Screen <0.90 index
== END 2023-12-09 11:50 | disposition home or self-care (01) ==
LOC: HO.LAB 11:49
PROVIDERS: Visit Provider Internal Medicine
DX: F03.90 Unspecified dementia, unspecified severity, without behavioral disturbance, psychotic disturbance, mood disturbance, and anxiety (principal); R41.89 Other symptoms and signs involving cognitive functions and awareness
CPT/HCPCS: 36415; 82607; 82746; 85652; 86617; 86618

== ENCOUNTER 2023-12-23 10:46 | Outpatient (AMB) | payer MEDICARE, OTHER, SELFPAY ==
--- NOTE | 2023-12-23 10:57 | AM.OFFVISNUR ---
Intake Intake Visit Reasons: B12 Allergies No Known Allergies Allergy (Verified 12/09/23 11:12) Office Meds cyanocobalamin (vitamin B-12) 1,000 mcg/mL injection solution Performing Provider: David Morton MD [place] [facility] [place] [facility] Administered by: Audrey Moser RN on 12/23/23 11:02 Dose Route Admin Location Dispensed Lot Number Expiration Date NDC Assistant Chief Of Police 1,000 mcg IM 1 mL [id number] 04/03/25 10295-042-29 [facility] Coding Assessment & Plan Assessment & Plan Orders: Orders AMB Vitamin B12 Injection Patient Supplied Today E53.8 - Deficiency of other specified B group vitamins Medications: New cyanocobalamin (vitamin B-12) 1,000 mcg IM ONCE 1 mL 0RF E53.8 - Deficiency of other specified B group vitamins
== END 2023-12-23 11:06 | disposition home or self-care (01) ==
PROVIDERS: PCP Internal Medicine
DX: E53.8 Deficiency of other specified B group vitamins (principal)
CPT/HCPCS: 96372; J3420

== ENCOUNTER 2023-12-30 10:33 | Outpatient (AMB) | payer MEDICARE, OTHER, SELFPAY ==
--- NOTE | 2023-12-30 10:43 | AM.OFFVISNUR ---
Intake Intake Visit Reasons: B12 Shot Allergies No Known Allergies Allergy (Verified 12/09/23 11:12) Office Meds cyanocobalamin (vitamin B-12) 1,000 mcg/mL injection solution Performing Provider: David Morton MD [place] [facility] [place] [facility] Administered by: Kathrine Gifford RN on 12/30/23 10:48 Dose Route Admin Location Dispensed Lot Number Expiration Date NDC Advertising Assistant 1,000 mcg IM 1 mL [id number] 04/08/25 77329-628-44 [facility] C[facility] Assessment & Plan Assessment & Plan Orders: Orders AMB Vitamin B12 Injection Patient Supplied Today R41.89 - Other symptoms and signs involving cognitive functions and awareness Medications: New cyanocobalamin (vitamin B-12) 1,000 mcg IM ONCE 1 mL 0RF R41.89 - Other symptoms and signs involving cognitive functions and awareness
== END 2023-12-30 10:43 | disposition home or self-care (01) ==
PROVIDERS: PCP Internal Medicine; Visit Provider Internal Medicine
DX: R41.89 Other symptoms and signs involving cognitive functions and awareness (principal)
CPT/HCPCS: 96372; J3420

== ENCOUNTER 2024-01-06 09:55 | Outpatient (AMB) | payer MEDICARE, OTHER, SELFPAY ==
--- NOTE | 2024-01-06 10:24 | AM.OFFVISNUR ---
Intake Intake Visit Reasons: B12 Shot Allergies No Known Allergies Allergy (Verified 12/09/23 11:12) Office Meds cyanocobalamin (vitamin B-12) 1,000 mcg/mL injection solution Performing Provider: David Morton MD Performing Location: [facility] [place] [place] [facility] Administered by: Kathrine Gifford RN on 01/06/24 10:24 Dose Route Admin Location Dispensed Lot Number Expiration Date NDC Antique Furniture Restorer 1,000 mcg IM 1 mL [id number] 04/06/25 89657-578-[facility] Coding Assessment & Plan Assessment & Plan Orders: Orders AMB Vitamin B12 Injection Patient Supplied Today R41.89 - Other symptoms and signs involving cognitive functions and awareness Medications: New cyanocobalamin (vitamin B-12) 1,000 mcg IM ONCE 1 mL 0RF R41.89 - Other symptoms and signs involving cognitive functions and awareness
== END 2024-01-06 10:28 | disposition home or self-care (01) ==
PROVIDERS: PCP Internal Medicine; Visit Provider Internal Medicine
DX: R41.89 Other symptoms and signs involving cognitive functions and awareness (principal)
CPT/HCPCS: 96372; J3420

== ENCOUNTER 2024-01-13 09:47 | Outpatient (AMB) | payer MEDICARE, OTHER, SELFPAY ==
--- NOTE | 2024-01-13 10:09 | AM.OFFVISNUR ---
Intake Intake Visit Reasons: B12 Shot Allergies No Known Allergies Allergy (Verified 12/09/23 11:12) Office Meds cyanocobalamin (vitamin B-12) 1,000 mcg/mL injection solution Performing Provider: David Morton MD [place] [facility] [place] [facility] Administered by: Kathrine Gifford RN on 01/13/24 10:09 Dose Route Admin Location Dispensed Lot Number Expiration Date NDC Manager Furniture 1,000 mcg IM left arm 1 mL [id number] 04/06/25 22334-737-49 [facility] Coding Assessment & Plan Assessment & Plan Orders: Orders AMB Vitamin B12 Injection Patient Supplied Today R41.89 - Other symptoms and signs involving cognitive functions and awareness Medications: New cyanocobalamin (vitamin B-12) 1,000 mcg IM ONCE 1 mL 0RF R41.89 - Other symptoms and signs involving cognitive functions and awareness
== END 2024-01-13 10:13 | disposition home or self-care (01) ==
PROVIDERS: PCP Internal Medicine; Visit Provider Internal Medicine
DX: R41.89 Other symptoms and signs involving cognitive functions and awareness (principal)
CPT/HCPCS: 96372; J3420

== ENCOUNTER 2024-01-15 07:28 | Outpatient (REF) | payer MEDICARE, OTHER, SELFPAY ==
--- NOTE | ~2024-01-15 | CT_ITS ---
EXAMINATION: CT HEAD WITHOUT CONTRAST CLINICAL INFORMATION: Dementia. COMPARISON: None available. TECHNIQUE: Contiguous axial imaging was performed from the skull base to vertex without intravenous administration of contrast. This CT examination was performed using dose optimization techniques as appropriate, variously including the following: *Automated exposure control. *Adjustment of mA and/or kV according to patient size (this includes techniques or standardized protocols for targeted exams where dose is matched to indication/reason for exam; i.e. extremities or head). *Use of iterative reconstruction technique. DLP: 791 mGy-cm FINDINGS: There is no evidence of acute intracranial hemorrhage or edematous territorial infarction. Hoffmann-white matter differentiation is preserved. Scattered and partially confluent hypoattenuation in the periventricular and deep white matter are consistent with moderate microangiopathy. Proportional prominence of the ventricles and sulcal spaces without evidence of obstructive hydrocephalus. Normal posterior callosal angle. No abnormal mass effect or midline shift. No extra-axial fluid collections. No acute soft tissue or osseous abnormalities. Mild mucosal thickening of the paranasal sinuses. The mastoid air cells and middle ear cavities are clear. CT/CT head/brain wo IV con IMPRESSION: 1. No evidence of acute intracranial hemorrhage or edematous territorial infarction. 2. Moderate underlying microangiopathy and generalized cerebral volume loss.
== END 2024-01-15 07:29 | disposition home or self-care (01) ==
LOC: HO.CT 07:28
PROVIDERS: PCP Internal Medicine; Visit Provider Internal Medicine
DX: F03.90 Unspecified dementia, unspecified severity, without behavioral disturbance, psychotic disturbance, mood disturbance, and anxiety (principal)
CPT/HCPCS: 70450

== ENCOUNTER 2024-02-10 08:50 | Outpatient (AMB) | payer MEDICARE, OTHER, SELFPAY ==
--- NOTE | 2024-02-10 09:09 | AM.OFFVISNUR ---
Intake Visit Reasons: B12 shot Allergies No Known Allergies Allergy (Verified 12/09/23 11:12) Office Meds cyanocobalamin (vitamin B-12) 1,000 mcg/mL injection solution Performing Provider: David Morotn MD Performing [facility] [place] [facility] Administered by: Kathrine Gifford RN on 02/10/24 09:09 Dose Route Admin Location Dispensed Lot Number Expiration Date NDC Presetter Operator 1,000 mcg IM left arm 1 mL [id number] 05/07/25 55067-974-28 [id number] Assessment & Plan Assessment & Plan Orders: Orders AMB Vitamin B12 Injection Patient Supplied Today R41.89 - Other symptoms and signs involving cognitive functions and awareness Medications: New cyanocobalamin (vitamin B-12) 1,000 mcg IM ONCE 1 mL 0RF R41.89 - Other symptoms and signs involving cognitive functions and awareness
== END 2024-02-10 09:20 | disposition home or self-care (01) ==
PROVIDERS: PCP Internal Medicine; Visit Provider Internal Medicine
DX: R41.89 Other symptoms and signs involving cognitive functions and awareness (principal)
CPT/HCPCS: 96372; J3420

== ENCOUNTER 2024-02-24 09:51 | Outpatient (AMB) | payer MEDICARE, OTHER, SELFPAY ==
[2024-02-24 09:58] VITALS: BP 138/86; PULSE 66; O2SAT 98; BMI 28.1
--- NOTE | 2024-02-24 09:58 | A.OFFPC_ITS ---
Vital Signs 02/24/24 09:58 Height 5 ft 5 in Weight 169 lb 0.4 oz BMI 28.1 BP 138/86 Blood Pressure Location Lt brachial Position Sitting Pulse 66 Pulse Source Pulse Oximeter Pulse Oximetry (%) 98 Oxygen Delivery Method Room Air Intake Visit Reasons: discuss ct scan results [employer] Law Clerk Required: No Allergies No Known Allergies Allergy (Verified 12/09/23 11:12) Medication List - Last Reconciled 02/24/24 by David Morton MD aspirin 81 mg PO DAILY atenolol 100 mg PO DAILY atorvastatin 80 mg PO DAILY blood sugar diagnostic (FreeStyle Lite Strips) test blood sugars once a day cyanocobalamin (vitamin B-12) 1,000 mcg subcutaneously weekly x 4 weeks. Then once per month. 4 weeks fluoxetine 20 mg PO DAILY lisinopril 40 mg PO DAILY metformin 1,000 mg (2 x 500 mg) PO BID Tobacco use date assessed: 09/24/23 Fall risk assessment: No Falls in past year Last assessed Fall Risk: 02/24/24 Dental Screening Dental Screen Date: 09/24/[address] scan results HPI Details cognitive decline with anger issues; drinks 2+ beers a day; B12 def [facility] Medical History Screening for prostate cancer Hyperlipidemia associated with type 2 diabetes mellitus Diabetes mellitus with coincident hypertension Pre-op exam Diabetes mellitus Hyperlipidemia Surgical History History of colonoscopy History of cataract surgery History of ankle surgery History of rectal polypectomy History of inguinal hernia repair Family History Father Stroke Mother Stroke Brother Colon polyps Brother Prostate cancer Brother CAD (coronary artery disease) Social History Housing: House Alcohol intake: current Alcohol intake frequency: 0-2 drinks per day Patient Tobacco Use Status: Never used Tobacco e-Cigarette/Vaping Use: Never Used Second Hand Smoke Exposure: No service: Yes Current occupational status: retired Cognitive needs: No Hearing needs: No Vision needs: No Questionnaire Thrive Questionnaire Date Thrive assessed: 09/24/23 AUDIT C Alcohol Use Questionnaire (AUDIT-C) 1. How often do you have a drink containing alcohol?: 4 or more times a week 2. How many drinks containing alcohol do you have on a typical day when you are drinking?: 1 or 2 3. How often do you have six or more drinks on one occasion?: Never Total Score: 4 Score Reviewed/Action Taken: Yes PJ-7 AMB Questionnaire PJ-7 Date PJ - 7 assessed: 09/24/23 Source: Developed by Drs. Todd Martinez, Shyann Braga, Tae Torrez and colleagues, with an educational kaylin from [employer]. Review of Systems Const Denies chills, Denies headache(s) and Denies weight loss ENT Denies headache(s) Card Denies chest pain, Denies syncope, Denies irregular heart rhythm and Denies dyspnea Resp Denies chest congestion, Denies cough and Denies dyspnea GI Denies abdominal pain, Denies change in stool character, Denies nausea and Denies vomiting Musc Denies deformity and Denies joint swelling Neuro Denies syncope and Denies headache(s) Physical exam (Primary Care) Vital Signs: Last Vital Signs Pulse 66 02/24/24 09:58 BP 138/86 02/24/24 09:58 Pulse Ox 98 02/24/24 09:58 Oxygen Delivery Method Room Air 02/24/24 09:58 BMI result Body Mass Index 28.1 Tobacco/Smoking Status: Tobacco use Status Tobacco use date assessed 09/24/23 02/24/24 10:02 Patient Tobacco Use Status Never used Tobacco 02/24/24 10:02 e-Cigarette/Vaping Use Never Used 02/24/24 10:02 Thrive Assessment: Date of Thrive Assessment Date Thrive assessed 09/24/23 02/24/24 10:02 Const General: cooperative, comfortable, no acute distress and alert Neck Neck: Yes no lymphadenopathy Thyroid: Thyroid normal Resp Effort & Inspection: normal respiratory effort Auscultation: clear to auscultation bilaterally Percussion: percussion normal Cardio Jugular venous distension: no JVD Palpation: normal PMI Rate: regular rate Rhythm: regular rhythm Heart sounds: S1 normal heart sound present and S2 normal heart sound present GI Inspection: Yes normal to inspection Palpation (GI): No hepatosplenomegaly present Skin General skin exam: no rashes or lesions noted Extrem General: Yes no clubbing, cyanosis or edema Assessment and Plan Assessment & Plan (1) Cognitive decline: Code(s): R41.89 - Other symptoms and signs involving cognitive functions and awareness Plan: try citolapram (2) Vitamin B12 deficiency: Code(s): E53.8 - Deficiency of other specified B group vitamins Plan: cont monthly injections Medications: New citalopram 20 mg PO DAILY 60 tabs 7RF Coding Level of Care Code Est Pt Level 3 (26356) Diagnoses Cognitive decline R41.89 Vitamin B12 deficiency E53.8
== END 2024-02-24 10:27 | disposition home or self-care (01) ==
PROVIDERS: PCP Internal Medicine; Visit Provider Internal Medicine
DX: R41.89 Other symptoms and signs involving cognitive functions and awareness (principal); E53.8 Deficiency of other specified B group vitamins
CPT/HCPCS: 99213

== ENCOUNTER 2024-03-11 08:45 | Outpatient (AMB) | payer MEDICARE, OTHER, SELFPAY ==
--- NOTE | 2024-03-11 08:52 | AM.OFFVISNUR ---
Intake Visit Reasons: B12 Shot Allergies No Known Allergies Allergy (Verified 12/09/23 11:12) Office Meds cyanocobalamin (vitamin B-12) 1,000 mcg/mL injection solution Performing Provider: David Morton MD [place] [facility] [place] [facility] Administered by: Laisha Reyes RN on 03/11/24 08:53 Dose Route Admin Location Dispensed Lot Number Expiration Date NDC Community Health Representative 1,000 mcg IM left deltoid 1 mL [id number] 05/09/25 07625-846-10 [employer] [place] Assessment & Plan Assessment & Plan Orders: Orders AMB Vitamin B12 Injection Patient Supplied Today E53.8 - Deficiency of other specified B group vitamins Medications: New cyanocobalamin (vitamin B-12) 1,000 mcg IM ONCE 1 mL 0RF E53.8 - Deficiency of other specified B group vitamins
== END 2024-03-11 08:58 | disposition home or self-care (01) ==
LOC: HO.HMGH 08:45
PROVIDERS: PCP Internal Medicine; Visit Provider Internal Medicine
DX: E53.8 Deficiency of other specified B group vitamins (principal)
CPT/HCPCS: 96372; J3420

== ENCOUNTER 2024-03-30 09:19 | Outpatient (AMB) | payer MEDICARE, OTHER, SELFPAY ==
[2024-03-30 09:31] VITALS: BP 162/98; PULSE 62; O2SAT 97; BMI 28.1
--- NOTE | 2024-03-30 09:31 | MHC.PC.OV ---
Vital Signs 03/30/24 09:31 Height 5 ft 5 in Weight 169 lb BMI 28.1 BP 162/98 H Blood Pressure Location Lt brachial Position Sitting Pulse 62 Pulse Source Pulse Oximeter Pulse Oximetry (%) 97 Oxygen Delivery Method Room Air Intake Visit Reasons: Follow Up Industrial Rehabilitation Consultant Required: No Allergies No Known Allergies Allergy (Verified 03/30/24 09:37) Medication List - Last Reconciled 03/30/24 by David Morton MD aspirin 81 mg PO DAILY atenolol 100 mg PO DAILY atorvastatin 80 mg PO DAILY blood sugar diagnostic (FreeStyle Lite Strips) test blood sugars once a day citalopram 20 mg PO DAILY cyanocobalamin (vitamin B-12) 1,000 mcg subcutaneously weekly x 4 weeks. Then once per month. 4 weeks fluoxetine 20 mg PO DAILY lisinopril 40 mg PO DAILY metformin 1,000 mg (2 x 500 mg) PO BID Tobacco use date assessed: 09/24/23 Fall risk assessment: No Falls in past year Last assessed Fall Risk: 03/30/24 Dental Screening Dental Screen Date: 09/24/23 HPI Follow Up HPI Details vitamin B12 def; on monthly B12 shots now; doing better emotionally PFSH Medical History Screening for prostate cancer Hyperlipidemia associated with type 2 diabetes mellitus Diabetes mellitus with coincident hypertension Pre-op exam Diabetes mellitus Hyperlipidemia Surgical History History of colonoscopy History of cataract surgery History of ankle surgery History of rectal polypectomy History of inguinal hernia repair Family History Father Stroke Mother Stroke Brother Colon polyps Brother Prostate cancer Brother CAD (coronary artery disease) Social History Housing: House Alcohol intake: current Alcohol intake frequency: 0-2 drinks per day Patient Tobacco Use Status: Never used Tobacco e-Cigarette/Vaping Use: Never Used Second Hand Smoke Exposure: No service: Yes Current occupational status: retired Cognitive needs: No Hearing needs: No Vision needs: No Questionnaire Thrive Questionnaire Date Thrive assessed: 09/24/23 PJ-7 AMB Questionnaire PJ-7 Date PJ - 7 assessed: 09/24/23 Source: Developed by Drs. Todd Martinez, Shyann Braga, Tae Torrez and colleagues, with an educational kaylin from [employer]. Review of Systems Const Denies chills, Denies headache(s) and Denies weight loss ENT Denies headache(s) Card Denies chest pain, Denies syncope, Denies irregular heart rhythm and Denies dyspnea Resp Denies chest congestion, Denies cough and Denies dyspnea GI Denies abdominal pain, Denies change in stool character, Denies nausea and Denies vomiting Musc Denies deformity and Denies joint swelling Neuro Denies syncope and Denies headache(s) Physical exam (Primary Care) Vital Signs: Last Vital Signs Pulse 62 03/30/24 09:31 BP 162/98 H 03/30/24 09:31 Pulse Ox 97 03/30/24 09:31 Oxygen Delivery Method Room Air 03/30/24 09:31 BMI result Body Mass Index 28.1 Tobacco/Smoking Status: Tobacco use Status Tobacco use date assessed 09/24/23 03/30/24 09:32 Patient Tobacco Use Status Never used Tobacco 03/30/24 09:32 e-Cigarette/Vaping Use Never Used 03/30/24 09:32 Thrive Assessment: Date of Thrive Assessment Date Thrive assessed 09/24/23 03/30/24 09:32 Const General: cooperative, comfortable, no acute distress and alert Neck Neck: Yes no lymphadenopathy Thyroid: Thyroid normal Resp Effort & Inspection: normal respiratory effort Auscultation: clear to auscultation bilaterally Percussion: percussion normal Cardio Jugular venous distension: no JVD Palpation: normal PMI Rate: regular rate Rhythm: regular rhythm Heart sounds: S1 normal heart sound present and S2 normal heart sound present GI Inspection: Yes normal to inspection Palpation (GI): No hepatosplenomegaly present Skin General skin exam: no rashes or lesions noted Extrem General: Yes no clubbing, cyanosis or edema Results AMB Hemoglobin A1c AMB Hemoglobin A1c 6.5 % Last Edit by Sona Berman CMA on 03/30/24 09:44 Results Reviewed Results Reviewed: Laboratory Last Values Hgb A1c (Clinic) 6.5 % (4.0-6.0) H 03/30/24 09:43 Assessment and Plan Assessment & Plan (1) Vitamin B12 deficiency: Code(s): E53.8 - Deficiency of other specified B group vitamins Plan: stable; same rx Orders: Orders AMB Hemoglobin A1c Today E11.9 - Type 2 diabetes mellitus without complications Vitamin B12 Today E53.8 - Deficiency of other specified B group vitamins Coding Level of Care Code Est Pt Level 3 (54170) Diagnoses Vitamin B12 deficiency E53.8
== END 2024-03-30 12:40 | disposition home or self-care (01) ==
PROVIDERS: PCP Internal Medicine; Visit Provider Internal Medicine
DX: E53.8 Deficiency of other specified B group vitamins (principal); E11.9 Type 2 diabetes mellitus without complications
CPT/HCPCS: 83036; 99213

== ENCOUNTER 2024-04-12 08:20 | Outpatient (AMB) | payer MEDICARE, OTHER, SELFPAY ==
--- NOTE | 2024-04-12 08:29 | AM.OFFVISNUR ---
Intake Visit Reasons: B12 Shot Allergies No Known Allergies Allergy (Verified 03/30/24 09:37) Office Meds cyanocobalamin (vitamin B-12) 1,000 mcg/mL injection solution Performing Provider: David Morton MD [place] [facility] [place] [facility]ered by: Laisha Reyes RN on 04/12/24 08:29 Dose Route Admin Location Dispensed Lot Number Expiration Date NDC Power Barker 1,000 mcg IM Left deltoid 1 mL [id number] 05/09/25 73799-072-59 [employer] Assessment & Plan Assessment & Plan Orders: Orders AMB Vitamin B12 Injection Patient Supplied Today E53.8 - Deficiency of other specified B group vitamins Medications: New cyanocobalamin (vitamin B-12) 1,000 mcg IM ONCE 1 mL 0RF E53.8 - Deficiency of other specified B group vitamins
== END 2024-04-12 08:31 | disposition home or self-care (01) ==
PROVIDERS: PCP Internal Medicine; Visit Provider Internal Medicine
DX: E53.8 Deficiency of other specified B group vitamins (principal)
CPT/HCPCS: 96372; J3420

== ENCOUNTER 2024-04-12 08:35 | Outpatient (REF) | payer MEDICARE, OTHER, SELFPAY ==
[2024-04-12 10:52] LABS: Vitamin B12 > 2000 pg/mL (200-900)
== END 2024-04-12 08:36 | disposition home or self-care (01) ==
LOC: HO.LAB 08:35
PROVIDERS: PCP Internal Medicine; Visit Provider Internal Medicine
DX: E53.8 Deficiency of other specified B group vitamins (principal)
CPT/HCPCS: 36415; 82607

== ENCOUNTER 2024-05-12 08:16 | Outpatient (AMB) | payer MEDICARE, OTHER, SELFPAY ==
--- NOTE | 2024-05-12 08:40 | AM.OFFVISNUR ---
Intake Visit Reasons: B-12 shot Allergies No Known Allergies Allergy (Verified 03/30/24 09:37) Office Meds cyanocobalamin (vitamin B-12) 1,000 mcg/mL injection solution Performing Provider: David Morton MD Performing Location: [facility] [place] [facility] Administered by: Kathryn Duke LPN on 05/12/24 08:40 Dose Route Admin Location Dispensed Lot Number Expiration Date [facility] Diagrammer And Seamer 1,000 mcg IM left deltoid 1 mL [id number] 05/09/25 61830-952-17 [employer] Assessment & Plan Assessment & Plan Orders: Orders AMB Vitamin B12 Injection Patient Supplied Today E53.8 - Deficiency of other specified B group vitamins Medications: New cyanocobalamin (vitamin B-12) 1,000 mcg IM ONCE 1 mL 0RF E53.8 - Deficiency of other specified B group vitamins
== END 2024-05-12 08:41 | disposition home or self-care (01) ==
LOC: HO.HMCH 08:16
PROVIDERS: PCP Internal Medicine; Visit Provider Internal Medicine
DX: E53.8 Deficiency of other specified B group vitamins (principal)
CPT/HCPCS: J3420

== ENCOUNTER → 2024-05-12 08:16 | Outpatient (BNVA) | payer MEDICARE, OTHER, SELFPAY | PROVIDERS: PCP Internal Medicine; Visit Provider Internal Medicine | DX: E53.8 Deficiency of other specified B group vitamins (principal) | CPT/HCPCS: 96372 ==

== ENCOUNTER 2024-05-20 08:53 | Outpatient (AMB) | payer MEDICARE, OTHER, SELFPAY ==
[2024-05-20 08:55] VITALS: BP 150/86; PULSE 62; O2SAT 99; BMI 29.3
--- NOTE | 2024-05-20 08:55 | MHC.PC.OV ---
Vital Signs 05/20/24 08:55 Height 5 ft 5 in Intake Visit Reasons: SAWV Allergies No Known Allergies Allergy (Verified 03/30/24 09:37) Tobacco use date assessed: 09/24/23 Dental Screening Dental Screen Date: 09/24/23 [facility] Medical History Screening for prostate cancer Hyperlipidemia associated with type 2 diabetes mellitus Diabetes mellitus with coincident hypertension Pre-op exam Diabetes mellitus Hyperlipidemia Surgical History History of colonoscopy History of cataract surgery History of ankle surgery History of rectal polypectomy History of inguinal hernia repair Family History Father Stroke Mother Stroke Brother Colon polyps Brother Prostate cancer Brother CAD (coronary artery disease) Social History Housing: House Alcohol intake: current Alcohol intake frequency: 0-2 drinks per day Patient Tobacco Use Status: Never used Tobacco e-Cigarette/Vaping Use: Never Used Second Hand Smoke Exposure: No service: Yes Current occupational status: retired Cognitive needs: No Hearing needs: No Vision needs: No Questionnaire Thrive Questionnaire Date Thrive assessed: 09/24/23 Are you currently unemployed and looking for a job?: No PJ-7 AMB Questionnaire PJ-7 Date PJ - 7 assessed: 09/24/23 Source: Developed by Drs. Todd Martinez, Shyann Braga, Tae Torrez and colleagues, with an educational kaylin from [employer]. Physical exam (Primary Care) Tobacco/Smoking Status: Tobacco use Status Tobacco use date assessed 09/24/23 03/30/24 09:32 Patient Tobacco Use Status Never used Tobacco 03/30/24 09:32 e-Cigarette/Vaping Use Never Used 03/30/24 09:32 Thrive Assessment: Date of Thrive Assessment Date Thrive assessed 09/24/23 03/30/24 09:32 Coding
--- NOTE | 2024-05-20 08:56 | A.OFFVIS_ITS ---
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 Then once per month. 4 weeks fluoxetine 20 mg PO DAILY lisinopril 40 mg PO DAILY metformin 1,000 mg (2 x 500 mg) PO BID HPI SAWV HPI Details DM B12 def HTN and hypothyroidism PFSH Medical History Screening for prostate cancer Hyperlipidemia associated with type 2 diabetes mellitus Diabetes mellitus with coincident hypertension Pre-op exam Diabetes mellitus Hyperlipidemia Surgical History History of colonoscopy History of cataract surgery History of ankle surgery History of rectal polypectomy History of inguinal hernia repair Family History Father Stroke Mother Stroke Brother Colon polyps Brother Prostate cancer Brother CAD (coronary artery disease) Social History Housing: House Alcohol intake: current Alcohol intake frequency: 0-2 drinks per day Patient Tobacco Use Status: Never used Tobacco e-Cigarette/Vaping Use: Never Used Second Hand Smoke Exposure: No service: Yes Current occupational status: retired Cognitive needs: No Hearing needs: No Vision needs: No Questionnaire Medicare Wellness Checkup [age] What gender do you identify with?: male During the past 4 weeks, how much have you been bothered by emotional problems such as feeling anxious, depressed, irritable, sad or downhearted, and blue?: not at all During the past 4 weeks, has your physical & emotional health limited your social activities with family, friends, neighbors, or groups?: not at all During the past 4 weeks, how much bodily pain have you generally had?: no pain During the past 4 weeks, was someone available to help you if you needed & wanted help?: yes, as much as I wanted During the past 4 weeks, what was the hardest physical activity you could do for at least 2 minutes?: light Can you get to places out of walking distance without help? (For eg., can you travel alone on buses, taxis or drive your car?): Yes Can you go shopping for groceries or clothes without someone's help?: Yes Can you prepare your own meals?: Yes Can you do your housework without help?: Yes Because of any health problems, do you need the help of another person with your personal care needs such as eating, bathing, dressing or getting around the house?: No Can you handle your own money without help?: Yes During the past 4 weeks, how would you rate your health in general?: good During the past 4 weeks how have things been going for you?: pretty well Are you having difficulties driving your car?: no Do you always fasten your seat belt when you are in a car?: yes, usually During past 4 weeks, have you been bothered by the following: never: Falling or dizzy when standing up, Sexual problems?, Trouble eating well?, Teeth or denture problems?, Problems using the telephone? and Tiredness or fatigue? Have you fallen 2 or more times in the past year?: No Are you afraid of falling?: No Are you a smoker?: no During the past 4 weeks, how many drinks of wine, beer, or other alcoholic b everages did you have?: 2-5 drinks per week Do you exercise for about 20 minutes 3 or more times a week?: yes, some of the time Have you been given information to help with the following?: yes: Hazards in your house that might hurt you? and yes: Keeping track of your medications? How often do you have trouble taking medicines the way you have been told to take them?: I always take medicine as prescribed How confident are you that you can control & manage most of your health problems?: somewhat confident What is your race?: White Mini Mental State Exam (MMSE) Orientation What is the (year) (season) (date) (day) (month)?: year, season, date, day and month Where are we (state) (county) (town or city) (hospital) (floor)?: state, county, town or city, hospital/clinic and floor Registration Name of 3 unrelated objects clearly and slowly, then ask patient to repeat all 3 of them. (1st repeat determines score. Make sure they can repeat all three): object 1, object 2 and object 3 Attention & Calculation (CHOOSE ONE) Ask pt to begin with 100 & count backward by 7. Stop after 5 repeats. If pt cannot ask them to spell the word WORLD backward.: 93 Spell WORLD backwards (DLROW): 1 letter Recall Ask patient to repeat the 3 items from question #3.: object 1 Score Score: 16 Activity of Daily Living Bathing - sponge bath, tub bath or shower: receives no assistance (gets in/out by self, if usual bathing means Dressing - getting clothes from closets & drawers, including inner/outer garments & fasteners.: gets clothes & gets completely dressed without help Toileting - going to the 'toilet room' for urine/bowel elimination & cleaning self/arranging clothes: goes to toilet room, cleans self, arranges clothes without help Transfer: moves in & out of bed and chair without help (may use support object) Continence: controls urination/bowel movements completely by self Feeding: feeds self without help Total Score: 0 Information obtained from: patient Using telephone: independent Traveling: independent Shopping: independent Preparing meals: independent Housework: independent Taking medicine: independent Managing money: independent PHQ-9 Over the last 2 weeks, how often have you been bothered by any of the following problems? 1. Little interest or pleasure in doing things: not at all 2. Feeling down, depressed, or hopeless: not at all 3. Trouble falling or staying asleep, or sleeping too much: not at all 4. Feeling tired or having little energy: not at all 5. Poor appetite or overeating: several days 6. Feeling bad about yourself - or that you are a failure or have let yourself or your family down: not at all 7. Trouble concentrating on things, such as reading the newspaper or watching television: not at all 8. Moving or speaking so slowly that other people could have noticed. Or the opposite - being so fidgety or restless that you have been moving around a lot more than usual: not at all 9. Thoughts that you would be better off or of hurting yourself in some way: not at all Total score: 1 Depression Screening Done: Yes 44282 - PHQ-9 Billing: Yes Source: Developed by Drs. Todd Martinez, Shyann Braga, Tae Torrez and colleagues, with an educational kaylin from [employer]. Review of Systems Const Denies chills, Denies fatigue, Denies headache(s) and Denies weight loss Eyes Denies change in vision, Denies diplopia and Denies eye pain ENT Reports Normal hearing present, Denies vertigo, Denies dizziness, Denies headache(s) and Denies nasal discharge Card Denies chest pain, Denies rapid heart rate and Denies dyspnea on exertion Resp Denies chest congestion, Denies cough, Denies pain with cough and Denies dyspnea on exertion GI Denies abdominal pain, Denies hematochezia and Denies change in bowel habits Musc Denies myalgias, Denies arthralgias and Denies joint swelling Skin/Breast Denies lesions and Denies unusual bruising Neuro Reports Normal hearing present, Denies vertigo, Denies dizziness, Denies headache(s) and Denies focal weakness Endo Denies fatigue Physical Exam Vital Signs: Last Vital Signs Pulse 62 05/20/24 08:55 BP 150/86 H 05/20/24 08:55 Pulse Ox 99 05/20/24 08:55 Oxygen Delivery Method Room Air 05/20/24 08:55 BMI result Body Mass Index 29.3 Neuro Cranial nerves: Yes Normal hearing present Assessment & Plan Assessment & Plan (1) Encounter for initial annual wellness visit (AWV) in Medicare patient: Code(s): Z00.00 - Encounter for general adult medical examination without abnormal findings Plan: normal whisper and rhomberg; forms given to patient (2) Vitamin B12 deficiency: Code(s): E53.8 - Deficiency of other specified B group vitamins Plan: stable; same rx (3) Hypertension: Code(s): I10 - Essential (primary) hypertension Plan: stable; same rx (4) Hyperlipidemia associated with type 2 diabetes mellitus: Code(s): E11.69 - Type 2 diabetes mellitus with other specified complication; E78.5 - Hyperlipidemia, unspecified Plan: stable; same rx (5) Diabetes mellitus: Code(s): E11.9 - Type 2 diabetes mellitus without complications Plan: stable; same rx Medications: Refilled cyanocobalamin (vitamin B-12) 1,000 mcg subcutaneously weekly x 4 weeks. Then once per month. 4 mL 5RF 4 weeks Quality Reporting (2019) Depression/Bipolar (159/160/161/177) PHQ-9: Total score: 1 Coding Level of Care Code Medicare First (G0438) Diagnoses Encounter for initial annual wellness visit (AWV) in Medicare patient Z00.00 Vitamin B12 deficiency E53.8 Hypertension I10 Hyperlipidemia associated with type 2 diabetes mellitus E11.69; E78.5 Diabetes mellitus E11.9 CPT Codes Advance Care Planning - Advance Care Planning discussion: On file, no changes ([id number]) Advance Care Planning Advance Care Planning discussion: On file, no changes Forms completed: Health Care Proxy
[2024-05-20 09:00] VITALS: BMI 29.3
== END 2024-05-20 09:16 | disposition home or self-care (01) ==
PROVIDERS: PCP Internal Medicine; Visit Provider Internal Medicine
DX: Z00.00 Encounter for general adult medical examination without abnormal findings (principal); E11.69 Type 2 diabetes mellitus with other specified complication; E53.8 Deficiency of other specified B group vitamins; I10 Essential (primary) hypertension; E78.5 Hyperlipidemia, unspecified

== ENCOUNTER → 2024-05-20 08:53 | Outpatient (BNVA) | payer MEDICARE, OTHER, SELFPAY | PROVIDERS: PCP Internal Medicine; Visit Provider Internal Medicine | DX: Z00.00 Encounter for general adult medical examination without abnormal findings (principal); E53.8 Deficiency of other specified B group vitamins; I10 Essential (primary) hypertension; E11.69 Type 2 diabetes mellitus with other specified complication; E78.5 Hyperlipidemia, unspecified | CPT/HCPCS: 96127; 99212 ==

== ENCOUNTER 2024-06-17 11:06 | Outpatient (AMB) | payer MEDICARE, OTHER, SELFPAY ==
--- NOTE | 2024-06-17 11:11 | AM.OFFVISNUR ---
Intake Visit Reasons: B-12 shot Allergies No Known Allergies Allergy (Verified 05/20/24 08:57) Office Procedures Flu Questionnaire Does the patient have a severe egg allergy?: No Does the patient have severe life threatening allergies?: No Does the patient have a fever or illness today?: No Has the patient ever had Guillain-[place] Syndrome?: No Has the patient ever had any past reaction to a flu shot?: No Office Meds cyanocobalamin (vitamin B-12) 1,000 mcg/mL injection solution Performing Provider: David Morton MD [facility] [place] [facility] Administered by: Kathryn Duke LPN on 06/17/24 11:11 Dose Route Admin Location Dispensed Lot Number Expiration Date [facility] Customer Assistance Associate 1,000 mcg IM left deltoid 1 mL [id number] 01/07/26 05533-224-00 [employer] Assessment & Plan Assessment & Plan Orders: Orders Influenza 2522-8236 Immunization Today Z23 - Encounter for immunization AMB Vitamin B12 Injection Patient Supplied Today E53.8 - Deficiency of other specified B group vitamins Medications: New Fluarix Triv 4812-3543 (PF) (flu vacc [id number] 6mos up(PF)) 0.5 mL IM ONCE 0.5 mL 0RF NS Z23 - Encounter for immunization cyanocobalamin (vitamin B-12) 1,000 mcg IM ONCE 1 mL 0RF E53.8 - Deficiency of other specified B group vitamins
== END 2024-06-17 11:15 | disposition home or self-care (01) ==
PROVIDERS: PCP Internal Medicine; Visit Provider Internal Medicine
DX: Z23 Encounter for immunization (principal); E53.8 Deficiency of other specified B group vitamins
CPT/HCPCS: J3420

== ENCOUNTER → 2024-06-17 11:06 | Outpatient (BNVA) | payer MEDICARE, OTHER, SELFPAY | PROVIDERS: PCP Internal Medicine; Visit Provider Internal Medicine | DX: Z23 Encounter for immunization (principal); E53.8 Deficiency of other specified B group vitamins | CPT/HCPCS: 90471; 90656; 96372 ==

== ENCOUNTER 2024-07-12 10:46 | Outpatient (AMB) | payer MEDICARE, OTHER, SELFPAY ==
[2024-07-12 10:48] VITALS: BP 160/110; PULSE 66; O2SAT 99; BMI 29.5
--- NOTE | 2024-07-12 10:48 | A.OFFPC_ITS ---
Vital Signs 07/12/24 10:48 Height 5 ft 5 in Weight 177 lb 0.2 oz BMI 29.5 BP 160/110 H Blood Pressure Location Lt brachial Position Sitting Pulse 66 Pulse Source Pulse Oximeter Pulse Oximetry (%) 99 Oxygen Delivery Method Room Air Intake Visit Reasons: cataract surgery on shot Intake Note: Patient is here for a Pre-op for [type of surgery] scheduled with [provider name ] on [date]. Dispatcher Maintenance Required: No Accompanied by: Self / Same As Patient Allergies No Known Allergies Allergy (Verified 07/12/24 10:54) Medication List - Last Reconciled 07/13/24 by David Morton MD aspirin 81 mg PO DAILY atenolol 100 mg PO DAILY atorvastatin 80 mg PO DAILY blood sugar diagnostic (FreeStyle Lite Strips) test blood sugars once a day citalopram 20 mg PO DAILY cyanocobalamin (vitamin B-12) 1,000 mcg subcutaneously weekly x 4 weeks. Then once per month. 4 weeks fluoxetine 20 mg PO DAILY lisinopril 40 mg PO DAILY metformin 1,000 mg (2 x 500 mg) PO BID Tobacco use date assessed: 09/24/23 Fall risk assessment: No Falls in past year Last assessed Fall Risk: 07/12/24 Dental Screening Dental Screen Date: 09/24/23 HPI cataract surgery on shot HPI Details scheduled for cataract surgery later this month; has diabetes, hypertension and hyperlipidemia; mild cognitine impairment PFSH Medical History Screening for prostate cancer Hyperlipidemia associated with type 2 diabetes mellitus Diabetes mellitus with coincident hypertension Pre-op exam Diabetes mellitus Hyperlipidemia Surgical History History of colonoscopy History of cataract surgery History of ankle surgery History of rectal polypectomy History of inguinal hernia repair Family History Father Stroke Mother Stroke Brother Colon polyps Brother Prostate cancer Brother CAD (coronary artery disease) Social History Housing: House Alcohol intake: current Alcohol intake frequency: 0-2 drinks per day Patient Tobacco Use Status: Never used Tobacco e-Cigarette/Vaping Use: Never Used Second Hand Smoke Exposure: No service: Yes Current occupational status: retired Cognitive needs: No Hearing needs: No Vision needs: No Questionnaire Thrive Questionnaire Date Thrive assessed: 09/24/23 Are you currently unemployed and looking for a job?: No AUDIT C Alcohol Use Questionnaire (AUDIT-C) 1. How often do you have a drink containing alcohol?: 4 or more times a week 2. How many drinks containing alcohol do you have on a typical day when you are drinking?: 1 or 2 3. How often do you have six or more drinks on one occasion?: Never Total Score: 4 Score Reviewed/Action Taken: Yes PJ-7 AMB Questionnaire PJ-7 Date PJ - 7 assessed: 09/24/23 Source: Developed by Drs. Todd Martinez, Shyann Braga, Tae Torrez and colleagues, with an educational kaylin from [employer]. Review of Systems Const Denies chills, Denies fatigue, Denies headache(s) and Denies weight loss Eyes Denies change in vision, Denies diplopia and Denies eye pain ENT Reports Normal hearing present, Denies vertigo, Denies dizziness, Denies headache(s) and Denies nasal discharge Card Denies chest pain, Denies rapid heart rate and Denies dyspnea on exertion Resp Denies chest congestion, Denies cough, Denies pain with cough and Denies dyspnea on exertion GI Denies abdominal pain, Denies hematochezia and Denies change in bowel habits Musc Denies myalgias, Denies arthralgias and Denies joint swelling Skin/Breast Denies lesions and Denies unusual bruising Neuro Reports Normal hearing present, Denies vertigo, Denies dizziness, Denies headache(s) and Denies focal weakness Endo Denies fatigue Physical exam (Primary Care) Vital Signs: Last Vital Signs Pulse 66 07/12/24 10:48 BP 160/110 H 07/12/24 10:48 Pulse Ox 99 07/12/24 10:48 Oxygen Delivery Method Room Air 07/12/24 10:48 BMI result Body Mass Index 29.5 Tobacco/Smoking Status: Tobacco use Status Tobacco use date assessed 09/24/23 07/12/24 10:57 Patient Tobacco Use Status Never used Tobacco 07/12/24 10:57 e-Cigarette/Vaping Use Never Used 07/12/24 10:57 Thrive Assessment: Date of Thrive Assessment Date Thrive assessed 09/24/23 07/12/24 10:57 Const General: cooperative, healthy appearing and no acute distress Orientation/consciousness: oriented to person, oriented to place and oriented to time HENMT Head: Yes normal to inspection, Yes normocephalic and Yes atraumatic Mouth: Normal oral and palatal mucosa present and tongue normal Throat: Yes posterior oropharynx normal and Yes uvula midline Eyes General: appearance normal, both eyes and all related structures Neck Neck: Yes normal visual inspection, Yes full ROM and Yes no lymphadenopathy Thyroid: Thyroid normal Carotids: normal carotid upstroke Chest Chest palpation & inspection: normal inspection of the chest Resp Effort & Inspection: normal respiratory effort and able to speak in complete sentences Auscultation: clear to auscultation bilaterally Cardio Jugular venous distension: no JVD Palpation: normal PMI Rate: regular rate Rhythm: regular rhythm Heart sounds: S1 normal heart sound present and S2 normal heart sound present GI Inspection: Yes normal to inspection Palpation (GI): Soft to palpation and No hepatosplenomegaly present Auscultation: normal bowel sounds General: Yes no CVA tenderness Back/Spine/Pelvis Back: no CVA tenderness Skin General skin exam: no rashes or lesions noted Neuro General: oriented to person, oriented to place and oriented to time Cranial nerves: Yes Normal hearing present Extrem General: Yes normal to inspection and Yes full ROM Office Meds cyanocobalamin (vitamin B-12) 1,000 mcg/mL injection solution Performing Provider: David Morton MD [facility] [place] [facility] Administered by: Kathryn Duke LPN on 07/12/24 11:07 Dose Route Admin Location Dispensed Lot Number Expiration Date [facility] Light Armored Vehicle Officer 1,000 mcg IM left deltoid 1 mL [id number] 01/06/26 29513-442-23 [facility] Results AMB Hemoglobin A1c AMB Hemoglobin A1c 7.5 % Last Edit by CONCHA Astudillo on 07/12/24 11:06 Results Reviewed Results Reviewed: Laboratory Last Values Hgb A1c (Clinic) 7.5 % (4.0-6.0) H 07/12/24 11:06 Coding Level of Care Code Est Pt Level 4 (37043) Diagnoses Preop exam for internal medicine Z01.818 Cognitive decline R41.89 Hypertension I10 Diabetes mellitus E11.9 Hyperlipidemia E78.5 Assessment & Plan Assessment & Plan (1) Preop exam for internal medicine: Code(s): Z01.818 - Encounter for other preprocedural examination Category: Medical Plan: low risk of cardiovascular complications; cleared for surgery (2) Cognitive decline: Code(s): R41.89 - Other symptoms and signs involving cognitive functions and awareness Category: Medical Plan: stable (3) Hypertension: Code(s): I10 - Essential (primary) hypertension Category: Medical Plan: stable; same rx (4) Diabetes mellitus: Code(s): E11.9 - Type 2 diabetes mellitus without complications Category: Medical Plan: stable; same rx (5) Hyperlipidemia: Code(s): E78.5 - Hyperlipidemia, unspecified Category: Medical Plan: stable; same rx Orders: Orders Lipid Panel 07/12/24 Z13.220 - Encounter for screening for lipoid disorders Thyroid Stimulating Hormone 07/12/24 Z13.29 - Encounter for screening for other suspected endocrine disorder Hemoglobin A1c 07/12/24 R73.9 - Hyperglycemia, unspecified AMB Hemoglobin A1c 07/12/24 E11.9 - Type 2 diabetes mellitus without complications AMB Vitamin B12 Injection Patient Supplied 07/12/24 E53.8 - Deficiency of other specified B group vitamins Complete Blood Count Auto Diff 07/12/24 Z13.0 - Encounter for screening for diseases of the blood and blood-forming organs and certain disorders involving the immune mechanism Comprehensive [place]. Panel Fast 07/12/24 Z13.9 - Encounter for screening, unspecified
== END 2024-07-12 11:10 | disposition home or self-care (01) ==
PROVIDERS: PCP Internal Medicine; Visit Provider Internal Medicine
DX: Z01.818 Encounter for other preprocedural examination (principal); R41.89 Other symptoms and signs involving cognitive functions and awareness; I10 Essential (primary) hypertension; E11.9 Type 2 diabetes mellitus without complications; E78.5 Hyperlipidemia, unspecified

== ENCOUNTER → 2024-07-12 10:46 | Outpatient (BNVA) | payer MEDICARE, OTHER, SELFPAY | PROVIDERS: PCP Internal Medicine; Visit Provider Internal Medicine | DX: Z01.818 Encounter for other preprocedural examination (principal); R41.89 Other symptoms and signs involving cognitive functions and awareness; I10 Essential (primary) hypertension; E11.9 Type 2 diabetes mellitus without complications; E78.5 Hyperlipidemia, unspecified; E53.8 Deficiency of other specified B group vitamins | CPT/HCPCS: 83036; 96372; 99212; J3420 ==

== ENCOUNTER 2024-08-11 08:54 | Outpatient (AMB) | payer MEDICARE, OTHER, SELFPAY ==
--- NOTE | 2024-08-11 09:03 | AM.OFFVISNUR ---
Intake Visit Reasons: B12 Shot Allergies No Known Allergies Allergy (Verified 07/12/24 10:54) Office Meds cyanocobalamin (vitamin B-12) 1,000 mcg/mL injection solution Performing Provider: David Morton MD [place] [facility] Administered by: Kathryn Duke LPN on 08/11/24 09:03 Dose Route Admin Location Dispensed Lot Number Expiration Date [facility] Shoe [employer] 1,000 mcg IM left deltoid 1 mL [id number] 01/06/26 41112-697-51 [employer] Assessment & Plan Assessment & Plan Orders: Orders AMB Vitamin B12 Injection Patient Supplied Today E53.8 - Deficiency of other specified B group vitamins Medications: New cyanocobalamin (vitamin B-12) 1,000 mcg IM ONCE 1 mL 0RF E53.8 - Deficiency of other specified B group vitamins
== END 2024-08-11 11:48 | disposition home or self-care (01) ==
PROVIDERS: PCP Internal Medicine; Visit Provider Internal Medicine
DX: E53.8 Deficiency of other specified B group vitamins (principal)

== ENCOUNTER → 2024-08-11 08:54 | Outpatient (BNVA) | payer MEDICARE, OTHER, SELFPAY | PROVIDERS: PCP Internal Medicine; Visit Provider Internal Medicine | DX: E53.8 Deficiency of other specified B group vitamins (principal) | CPT/HCPCS: 96372; J3420 ==

== ENCOUNTER 2024-09-12 09:17 | Outpatient (REF) | payer MEDICARE, OTHER, SELFPAY ==
[2024-09-12 09:31] LABS: MANUAL DIFF FLAG NO
[2024-09-12 09:40] LABS: Basophils Percent Auto 0.5 % (0-2); Eosinophils Absolute Auto 0.3 X10*3/uL (0.0-0.4); Eosinophils Percent Auto 5.2 % (0-4); Hematocrit 40.3 % (42.0-52.0); Hemoglobin 14.1 g/dl (14.0-18.0); Imm Gran Abs Auto 0.03 X10*3/uL (0.00-0.03); Imm Gran Pct Auto 0.5 % (0.0-0.4); Lymphocytes Absolute Auto 1.6 X10*3/uL (1.2-4.9); Lymphocytes Percent Auto 26.5 % (20-40); Mean Corpuscular Hemoglobin 33.1 pg (27.0-33.0); Mean Corpuscular Volume 94.6 fL (80.0-98.0); Mean Platelet Volume 10.1 fL (9.4-12.4); Monocytes Absolute Auto 0.6 X10*3/uL (0.1-1.2); Monocytes Percent Auto 9.7 % (2-11); Neutrophils Absolute Auto 3.6 x10*3/uL (2.0-8.3); Neutrophils Percent Auto 57.6 % (45-73); Platelet Count 236 X10*3/uL (160-400); Red Blood Count 4.26 X10*6/uL (4.60-5.80); Red Cell Distribution Width 12.5 % (11.0-16.0); White Blood Count 6.2 X10*3/uL (4.8-10.8)
--- OUTSIDE RECORDS SUMMARY | 2024-09-12 09:40 | XMS_ITS | Clinical Summary ---
Author Organization [facility] it Address [address] [place] [address] Care Team Providers Care Archery Equipment Hay Sorter Name Role Phone David Morton MD Primary Care Provider [phone] Allergies No known active allergies Medications Medication Sig Dispensed Refills Start Date End Date Status lisinopril (PRINIVIL,ZESTRIL) 40 mg tabletIndications:Ath erosclerotic heart disease of little [place] tribe coronary artery without angina pectoris TAKE 1 TABLET BY MOUTH EVERY DAY 90 tablet 2 06/13/2024 Active atorvastatin (LIPITOR) 80 mg tablet Take 1 tablet (80 mg total) by mouth 1 (one) time each day. 05/18/2023 Active atenoloL (TENORMIN) 100 mg tablet Take 1 tablet (100 mg total) by mouth 1 (one) time each day. 08/21/2020 Active metFORMIN (GLUCOPHAGE) 500 mg tablet Take 1,000 mg by mouth 2 times daily (with meals). Active FREESTYLE LANCETS [facility] Active OneTouch Ultra Test test strip 1 Strip by In Vitro route as needed. Active aspirin 81 mg EC tablet Take 81 mg by mouth daily. Active nitroglycerin (NITROSTAT) 0.[address] 1 Tab under the tongue every 5 minutes as needed for Chest pain. 04/05/2018 Active Active Problems Problem Noted Date Diagnosed Date Cervical spine disease 04/05/2018 Coronary artery disease invo lving [place] tribe coronary artery of [place] heart without angina pectoris 04/05/2018 Overview (09/05/2024): -s/p inferior STEMI??in late February 2018 during his vacation for which he presented to [facility] -cardiac cath (images reviewed by myself) at [facility], showing showed 90% mid RCA stenosis which received a drug-eluting stent. He also had a 60% mid LAD stenosis shortly after the first diagonal vessel and a 50-60% D1 stenosis. The LAD lesion is found to be in significant by FFR at 0.94 -echocardiogram in 2018 (reviewed by myself)??preserved ejection fraction at 60- 65%, normal RV size and systolic function, no significant valve disease, normal LV diastolic function Last Assessment & Plan: Clinically euvolemic on exam without recurrent anginal symptoms or symptoms of heart failure. Interestingly, has persistent ST changes on recurrent and repeated ECGs over time. It has been 6 years since his primary event and I would like to at least update an echocardiogram for surveillance. I am especially concerned because of ongoing alcohol abuse-looking for evidence of any sort of cardiomyopathy. Otherwise, we will continue high-dose atorvastatin, current atenolol, baby aspirin. Diabetes mellitus 04/05/2018 Essential hypertension 04/05/2018 Overview (09/05/2024): Last Assessment & Plan: Suboptimally controlled but improved on my recheck. There is likely at least some component of whitecoat hypertension but I would like to get a sense of what his blood pressures truly are at home. I will have his daughter check his blood pressures 2-3 times a week in a resting state and report the numbers to me. If average blood pressures at rest are still greater than 130/90, would favor adding an antihypertensive-such as amlodipine. I would also like to obtain the patient's most recent labs to assure that previous hyperkalemia has improved since he is on high-dose lisinopril. For now cautiously continue current lisinopril and atenolol. Pure hypercholesterolemia 04/05/2018 Overview (09/05/2024): Last Assessment & Plan: Continue high-dose statin. Family History Medical History Relation Name Comments Coronary artery disease Brother 1 had an PR at 42, CABG, PCI Coronary artery disease Brother 2 CABG , 76 Coronary artery disease Brother 3 mild heart attack Other: atrial afibrillation Brother 3 Coronary artery disease Father cabg in 70s Relation Name Status Comments Brother 1 Brother 2 Brother 3 Father Social History Tobacco Use Types Packs/Day Years Used Date Smoking Tobacco: Never Smokeless Tobacco: Never Alcohol Use Standard Drinks/Week Comments Yes 0 (1 standard drink = 0.6 oz pur e alcohol) Sex and Gender Information Value Date Recorded Sex Assigned at Not on file Gender Identity Not on file Sexual Orientation Not on file Obstetrics History Last Filed Vital Signs Vital Sign Reading Time Taken Comments Blood Pressure 160/90 03/01/2024 12:35 PM EDT Pulse 63 02/29/2024 9:51 AM EDT Temperature - - Respiratory Rate - - Oxygen Saturation - - Inhaled Oxygen Concentration - - Weight 77.6 kg (171 lb) 03/01/2024 12:35 PM EDT Height 162.6 cm (5' 4 ) 03/01/2024 12:35 PM EDT Body Mass Index 29.35 03/01/2024 12:35 PM EDT Plan of Treatment Upcoming Encounters Date Type Department Care Team (Late st Contact Info) Description 03/01/2025 9:50 AM EDT Office Visit [facility] [address] [facility] [address] [place] [address] Emily Haile MD [address] [place] [address] Health Maintenance Due Date Last Done Comments Pneumococcal Vaccine: 65+ Years (1 of 2 - PCV) 1957 Diabetes: Annual Foot Exam 1961 Diabetes: Annual Retina Eye Exam 1961 DTaP,Tdap,and Td Vaccines (1 - Tdap) 1970 Zoster Vaccines (1 of 2) 2001 Cholesterol Screening (Lipid Panel) 07/20/2022 Colorectal Cancer Screening: Colonoscopy 07/20/2022 Depression Screening 07/20/2022 Diabetes: Annual Urine Albumin-Creatinine Ratio (uACR) 07/20/2022 Diabetes: Blood Sugar Control Test (HGBA1C) 07/20/2022 Falls Risk Assessment 07/20/2022 Hepatitis C Screening 07/20/2022 Medicare Annual Wellness Visit 07/20/2022 Social Influencers of Health Screening 07/20/2022 Diabetes: Annual GFR (Glomerular Filtration Rate) 02/25/2023 02/25/2022 Hypertension/CHF/CAD Annual BMP Blood Test 02/25/2023 02/25/2022 COVID-19 Vaccine ( season) 2024 Influenza Vaccine (#1) 2024 , 05/07/2020, 03/30/2019, Additional history exists RSV Immunization Patients 60+ Years Old (1 - 1-dose 75+ series) 2026 HIB Vaccines Aged Out No longer eligi ble based on patient's age to complete this topic HPV Vaccines Aged Out No longer eligi ble based on patient's age to complete this topic Hepatitis A Vaccines Aged Out No long er eligible based on patient's age to complete this topic Hepatitis B Vaccines Aged Out No long er eligible based on patient's age to complete this topic IPV Vaccines Aged Out No longer eligi ble based on patient's age to complete this topic MMR Vaccines Aged Out No longer eligi ble based on patient's age to complete this topic Meningococcal ACWY Vaccine Aged Out N o longer eligible based on patient's age to complete this topic RSV Immunization Patients Under 20 months Aged Out No longer eligible based on patient's age to complete this topic Varicella Vaccines Aged Out No longer eligible based on patient's age to complete this topic Procedures Procedure Name Priority Date/Time Associated Diagnosis Comments ANNUAL BMP BLOOD TEST Routine 02/25/2022 from Last 3 Months or Most Recently Relevant to Health Maintenance Results * Annual BMP Blood Test (02/25/2022) Annual BMP Blood Test abstracted Historical Provider MD JOY Nevarez from Last 3 Months or Most Recently Relevant to Health Maintenance Care Teams Archery Equipment Hay Sorter Relationship Specialty Start Date End Date David Morton MD [address] [place] [id number] PCP - General Internal Medicine 03/17/18
--- OUTSIDE RECORDS SUMMARY | 2024-09-12 09:40 | XMS_ITS | Encounter Summary ---
Author Organization [facility] Address [address] [place] [address] Care Team Providers Care Director New Product Name Role Phone David Morton Primary Care Provider Unavailabl e Emily Haile MD Unavailable [phone] Reason for Visit * Reason Comments E-prescribe Rx Request Encounter Details Date Type Department Care Team Description 02/27/2021 Refill Cardio PVC POC [address] [facility] [address] [place], [place] [id number] Emily Haile MD [address] [place] [address] [phone] E-prescribe Rx Request Social History Tobacco Use Types Packs/Day Years Used Date Smoking Tobacco: Never Smokeless Tobacco: Never Sex Assigned at Date Recorded Not on file Job Start Date Occupation Industry Not on file Not on file Not on file documented as of this encounter Miscellaneous Notes * Telephone Encounter - George Wen - 02/27/2021 3:[address] Haile, receieved eRx for pt's Lisinopril. OTTONIEL=02/27/2020, latest labs in [facility] from 05/31/2020. Pt has appt with you tomorrow (02/28/21). Pended refill below. Please send/ammend as indicated tomorrow at [facility], thanks. documented in this encounter Plan of Treatment Not on file documented as of this encounter Visit Diagnoses Not on filedocumented in this encounter Care Teams Director New Product Relationship Specialty Start Date End Date David Morton PCP - General Internal Medicine 03/17/18 Emily Haile MD Specialist Cardiology 02/28/21 documented as of this encounter
--- OUTSIDE RECORDS SUMMARY | 2024-09-12 09:40 | XMS_ITS | Encounter Summary ---
Author Organization [facility] Address [address] [place] [address] Care Team Providers Care Rescue Boat Operator Name Role Phone David Morton Primary Care Provider Emily Leung MD Unavailable Encounter Details Date Type Department Care Team Description 02/27/2020 Psychologist Clinical Report Medical Records [address] [place] [address] Emily Haile MD [address] [place], [place] [id number] Social History Tobacco Use Types Packs/Day Years Used Date Smoking Tobacco: Never Smokeless Tobacco: Never Sex Assigned at Date Recorded Not on file Job Start Date Occupation Industry Not on file Not on file Not on file documented as of this encounter Plan of Treatment Not on file documented as of this encounter Visit Diagnoses Not on filedocumented in this encounter Care Teams Rescue Boat Operator Relationship Specialty Start Date End Date David Morton PCP - General Internal Medicine 03/17/18 Emily Haile MD Specialist Cardiology 02/28/21 documented as of this encounter
--- OUTSIDE RECORDS SUMMARY | 2024-09-12 09:40 | XMS_ITS | Encounter Summary ---
Author Organization [facility] Address [address] [place] [address] Care Team Providers Care Reimbursement Liaison Name Role Phone David Morton Primary Care Provider Unavailabl e Emily Haile MD Unavailable [phone] Reason for Visit * Reason Comments E-prescribe Rx Request Encounter Details Date Type Department Care Team Description 01/14/2023 Refill Cardio PVC POC [address] [facility] [address] [place] [address] [id number] Emily Haile MD [address] [place] [address] [phone] E-prescribe Rx Request Social History Tobacco Use Types Packs/Day Years Used Date Smoking Tobacco: Never Smokeless Tobacco: Never Alcohol Use Standard Drinks/Week Comments Yes 0 (1 standard drink = 0.6 oz pure alcohol) couple beers a day more on weekends Sex Assigned at Date Recorded Not on file Job Start Date Occupation Industry Not on file Not on file Not on file documented as of this encounter Miscellaneous Notes * Telephone Encounter - Aniya Braga RN - 01/14/2023 10:38 AM EDT Leyla 02/[address] Haile and next appt 02/2023. Last BMP drawn 03/2022. Refilled lisinopril 20 mg qd #90 0 refills documented in this encounter Plan of Treatment Not on file documented as of this encounter Visit Diagnoses Not on filedocumented in this encounter Care Teams Reimbursement Liaison Relationship Specialty Start Date End Date David Morton PCP - General Internal Medicine 03/17/18 Emily Haile MD Specialist Cardiology 02/28/21 documented as of this encounter
--- OUTSIDE RECORDS SUMMARY | 2024-09-12 09:40 | XMS_ITS | Encounter Summary ---
Author Organization [facility] Address [address] [place] [address] Care Team Providers Care Alumina Refinery Operator Name Role Phone David Morton Primary Care Provider Natasha e Emily Haile MD Unavailable [phone] Encounter Details Date Type Department Care Team Description 03/14/2024 Orders Only Cardio PVC POC [address] [facility] [address] [place] [address] Default, Provider Social History Tobacco Use Types Packs/Day Years [...] on file documented as of this encounter Procedures Procedure Name Priority Date/Time Associated Diagnosis Comments OUTSIDE LAB Routine 12/09/2023 documented in this encounter Results * OUTSIDE LAB (12/09/2023) Provider Default LAB documented in this encounter Visit Diagnoses Not on filedocumented in this encounter Care Teams Alumina Refinery Operator Relationship Specialty Start Date End Date David Morton PCP - General Internal Medicine 03/17/18 Emily Haile MD Specialist Cardiology 02/28/21 documented as of this encounter
--- OUTSIDE RECORDS SUMMARY | 2024-09-12 09:41 | XMS_ITS | Clinical Summary ---
Author Organization [facility] Address [address] [place] [address] Care Team Providers Care Theatrical Variety Agent Name Role Phone Selene David Primary Care Provider Emily Leung MD Unavailable [phone] Allergies No known active allergies Medications Medication Sig Dispensed Refills Start Date End Date Status metformin (GLUCOPHAGE) 500 MG tablet Take 1,000 mg by mouth 2 times daily (with meals). 0 Active FREESTYLE LANCETS 0 Active glucose blood test strips (ASCENSIA AUTODISC ,ONE TOUCH ULTRA TEST ) strip 1 Strip by In Vitro route as needed. 0 Active aspirin 81 MG EC tablet Take 81 mg by mouth daily. 0 Active nitroGLYCERIN (NITROSTAT) 0.[address] 1 Tab under the tongue every 5 minutes as needed for Chest pain. 1 Bottle 0 04/05/2018 Active atenolol (TENORMIN) 100 MG tablet TAKE 1 TABLET BY MOUTH EVERY DAY 90 Tab 1 08/21/2020 Active atorvastatin (LIPITOR) 80 MG tablet TAKE 1 TABLET BY MOUTH EVERY DAY 90 Tablet 3 05/18/2023 Active lisinopril (PRINIVIL,ZESTRIL) 40 MG tabletIndications:Cor onary artery disease involving standing [place] coronary artery of standing [place] heart without angina pectoris TAKE 1 TABLET BY MOUTH EVERY DAY 90 Tablet 2 09/22/2023 Active Active Problems Problem Noted Date Coronary artery disease invo lving standing [place] coronary artery of standing [place] heart without angina pectoris 04/05/2018 Overview: -s/p inferior STEMI??in late February 2018 during his vacation for which he presented to [facility] -cardiac cath (images reviewed by myself) at [facility], showing showed 90% mid RCA stenosis [...] continue high-dose atorvastatin, current atenolol, baby aspirin. Essential hypertension 04/05/2018 Last Assessment & Plan: Suboptimally controlled but [...] current lisinopril and atenolol. Pure hypercholesterolemia 04/05/2018 Last Assessment & Plan: Continue high-dose statin. Diabetes mellitus 04/05/2018 Cervical spine disease 04/05/2018 Family History Medical History Relation Name Comments CAD Brother 1 had an MN at 42 , CABG, PCI CAD Brother 2 CABG, 76 CAD Brother 3 mild heart att ack atrial afibrillation Brother 3 CAD Father cabg in 70s Relation Name Status Comments Brother 1 Brother 2 Brother 3 Father Social History Tobacco Use Types Packs/Day Years Used Date Smoking Tobacco: Never Smokeless Tobacco: Never Tobacco Cessation:Counseling Given: Not Answered Alcohol Use Standard Drinks/Week Comments Yes 0 (1 standard drink = 0.6 oz pure alcohol) couple beers a day more on weekends Sex Assigned at Date Recorded Not on file Job Start Date Occupation Industry Not on file Not on file Not on file Last Filed Vital Signs Vital Sign Reading Time Taken Comments Blood Pressure 160/90 03/01/2024 12:35 PM EDT Pulse 63 02/29/2024 9:51 AM EDT Temperature - - Respiratory Rate 12 04/05/2018 9:41 AM EDT Oxygen Saturation 96% 02/29/2024 9:51 AM EDT Inhaled Oxygen Concentration - - Weight 77.6 kg (171 lb) 03/01/2024 12:35 PM EDT Height 162.6 cm (5' 4 ) 03/01/2024 12:35 PM EDT Body Mass Index 29.35 03/01/2024 12:35 PM EDT Plan of Treatment Health Maintenance Due Date Last Done Comments Covid-19 Vaccine (#1) 1950 DEPRESSION SCREEN 1963 DIABETES/HEART DISEASE: SIMON AL CHOLESTEROL (LDL) 1969 DIABETES: ANNUAL EYE EXAM 1969 DIABETES: ANNUAL FOOT EXAM 1969 DIABETES: ANNUAL URINE PROTE IN TEST (MICROALBUMIN) 1969 DIABETES: BLOOD SUGAR CONTRO L TEST (HGBA1C) 1969 HEPATITIS C SCREENING 1969 DTAP/TDAP/TD (1 - Tdap) 1970 COLON CANCER SCREENING 2001 SHINGLES VACCINE (1 of 2) 2001 FALL RISK ASSESSMENT 2016 PNEUMOCOCCAL VACCINE (1 - PCV) 2016 INFLUENZA (#1) 2024 06/15/2019, 10/0 11/2017, 05/02/2017, Additional history exists BMI CHECK/ADVISE 08/10/2024 04/05/2018, 04/05/2018 Care Teams Theatrical Variety Agent Relationship Specialty Start Date End Date David Morton PCP - General Internal Medicine 03/17/18 Emily Haile MD Specialist Cardiology 02/28/21
--- OUTSIDE RECORDS SUMMARY | 2024-09-12 09:41 | XMS_ITS | Encounter Summary ---
Author Organization [facility] Address [address] [place] [address] Care Team Providers Care Wiring Technician Name Role Phone aDvid Morton Primary Care Provider Emily Leung MD Unavailable [phone] Encounter Details Date Type Department Care Team Description 02/28/2019 Carcass Splitter Report Medical Records [address] [place] [address] Emily Haile MD [address] [place], [place] [phone] Social History Tobacco Use Types Packs/Day Years Used Date Smoking Tobacco: Never Smokeless Tobacco: Never Sex Assigned at Date Recorded Not on file Job Start Date Occupation Industry Not on file Not on file Not on file documented as of this encounter Plan of Treatment Not on file documented as of this encounter Visit Diagnoses Not on filedocumented in this encounter Care Teams Wiring Technician Relationship Specialty Start Date End Date David Morton PCP - General Internal Medicine 03/17/18 Emily Haile MD Specialist Cardiology 02/28/21 documented as of this encounter
[2024-09-12 09:46] LABS: Estimated Average Glucose 194 mg/dL; Hemoglobin A1C 249.5477 umol/L; Hemoglobin A1c % 8.4 % (<6.0); Total Hemoglobin (HGBA1C) 3655.2392 umol/L
[2024-09-12 11:05] LABS: Alanine Aminotransferase 40 U/L (0-40); Albumin Level 4.5 g/dL (3.5-5.0); Alkaline Phosphatase 79 U/L (39-117); Anion Gap 12 (12-20); Aspartate Amino Transferase 28 U/L (5-37); Bilirubin Total 1.5 mg/dL (0.0-1.0); Blood Urea Nitrogen 11 mg/dL (9-16); Calcium 9.1 mg/dL (8.4-10.2); Carbon Dioxide 25 mmol/L (22-29); Chloride 103 mmol/L (96-108); Cholesterol 153 mg/dL (<200); Estimated Glomerular Filt Rate > 60; Glucose Fasting 248 mg/dL (60-99); HDL Cholesterol 33 mg/dL (>40); LDL Cholesterol Calculated 65 mg/dL (<100); Sodium 135 mmol/L (135-145); Thyroid Stimulating Hormone 2.86 uIU/mL (0.32-4.0); Total Protein 7.8 g/dL (6.5-8.0); Triglycerides 278 mg/dL (<150)
== END 2024-09-12 09:18 | disposition home or self-care (01) ==
LOC: HO.LAB 09:17
PROVIDERS: PCP Internal Medicine; Visit Provider Internal Medicine
DX: Z13.0 Encounter for screening for diseases of the blood and blood-forming organs and certain disorders involving the immune mechanism (principal); R73.9 Hyperglycemia, unspecified; Z13.220 Encounter for screening for lipoid disorders; Z13.29 Encounter for screening for other suspected endocrine disorder
CPT/HCPCS: 36415; 80053; 80061; 83036; 84443; 85025

== ENCOUNTER 2024-09-13 08:42 | Outpatient (AMB) | payer MEDICARE, OTHER, SELFPAY ==
--- NOTE | 2024-09-13 08:48 | AM.OFFVISNUR ---
Intake Visit Reasons: B12 Shot Allergies No Known Allergies Allergy (Verified 07/12/24 10:54) Office Meds cyanocobalamin (vitamin B-12) 1,000 mcg/mL injection solution Performing Provider: David Morton MD [facility] Administered by: Kathryn Duke LPN on 09/13/24 08:49 Dose Route Admin Location Dispensed Lot Number Expiration Date [facility] Reporting Specialist 1,000 mcg IM left deltoid 1 mL [id number] 01/07/26 72606-393-81 [employer] Assessment & Plan Assessment & Plan Orders: Orders AMB Vitamin B12 Injection Patient Supplied Today E53.8 - Deficiency of other specified B group vitamins Medications: New cyanocobalamin (vitamin B-12) 1,000 mcg IM ONCE 1 mL 0RF E53.8 - Deficiency of other specified B group vitamins Coding
--- OUTSIDE RECORDS SUMMARY | 2024-09-13 08:57 | XMS_ITS | Clinical Summary ---
Author Organization [facility] it Address [address] [place] [address] Care Team Providers Care Dry Dip Worker Name Role Phone David Morton MD Primary Care Provider [phone] Allergies No known active allergies Medications Medication Sig Dispensed Refills Start Date End Date Status lisinopril (PRINIVIL,ZESTRIL) 40 mg tabletIndications:Ath erosclerotic heart disease of [place] coronary artery without angina pectoris TAKE 1 [...] times daily (with meals). Active FREESTYLE LANCETS [facility] Active OneTouch Ultra Test test strip 1 [...] disease 04/05/2018 Coronary artery disease invo lving [place] coronary artery of ambler heart without angina pectoris 04/05/2018 Overview (09/05/2024): -s/p inferior STEMI??in late February 2018 during his vacation for which he presented to [facility] -cardiac cath (images reviewed by myself) at [facility], showing showed 90% mid RCA stenosis [...] Coronary artery disease Brother 1 had an VT at 42, CABG, PCI Coronary artery disease [...] Description 03/01/2025 9:50 AM EDT Office Visit [facility] [address] [facility] [address] [place] [address] Emily Haile MD [address] [place] [address] Health Maintenance Due Date Last Done Comments [...] Recently Relevant to Health Maintenance Care Teams Dry Dip Worker Relationship Specialty Start Date End Date David Morton MD [address] [place] [id number] PCP - General Internal Medicine 03/17/18
== END 2024-09-13 08:49 | disposition home or self-care (01) ==
PROVIDERS: PCP Internal Medicine; Visit Provider Internal Medicine
DX: E53.8 Deficiency of other specified B group vitamins (principal)

== ENCOUNTER → 2024-09-13 08:42 | Outpatient (BNVA) | payer MEDICARE, OTHER, SELFPAY | PROVIDERS: PCP Internal Medicine; Visit Provider Internal Medicine | DX: E53.8 Deficiency of other specified B group vitamins (principal) | CPT/HCPCS: 96372; J3420 ==

== ENCOUNTER 2024-09-20 09:23 | Outpatient (AMB) | payer MEDICARE, OTHER, SELFPAY ==
[2024-09-20 09:33] VITALS: BP 150/110; PULSE 60; TEMP 36.2; O2SAT 98; BMI 29.1
--- NOTE | 2024-09-20 09:33 | MHC.PC.OV ---
Vital Signs 09/20/24 09:33 Height 5 ft 5 in Weight 175 lb BMI 29.1 BP 150/110 H Blood Pressure Location Lt brachial Position Sitting Pulse 60 Pulse Source Pulse Oximeter Temp 97.1 F Temp Source Temporal Artery Scan Pulse Oximetry (%) 98 Oxygen Delivery Method Room Air Intake Visit Reasons: 3mth f/u Mrb Engineer Required: No Accompanied by: Spouse Allergies No Known Allergies Allergy (Verified 09/20/24 09:41) Medication List - Last Reconciled 09/20/24 by David Morton MD aspirin 81 mg PO DAILY atenolol 100 mg PO DAILY atorvastatin 80 mg PO DAILY blood sugar diagnostic (FreeStyle Lite Strips) test blood sugars once a day citalopram 20 mg PO DAILY cyanocobalamin (vitamin B-12) 1,000 mcg subcutaneously weekly x 4 weeks. Then once per month. 4 weeks fluoxetine 20 mg PO DAILY lisinopril 40 mg PO DAILY metformin 1,000 mg (2 x 500 mg) PO BID Tobacco use date assessed: 09/20/24 Fall risk assessment: No Falls in past year Last assessed Fall Risk: 09/20/24 Dental Screening Dental Screen Date: 09/20/24 Did you have a dental visit in the last 12 months?: Yes Did you have a dental problem in the last 6 months where you did not have access to dental care?: No Was dental information given to patient?: Patient has dentist HPI 3mth f/u HPI Details poorly controlled dm due to dietary indiscretion [facility] Medical History Screening for prostate cancer Hyperlipidemia associated with type 2 diabetes mellitus Diabetes mellitus with coincident hypertension Pre-op exam Diabetes mellitus Hyperlipidemia Surgical History History of colonoscopy History of cataract surgery History of ankle surgery History of rectal polypectomy History of inguinal hernia repair Family History Father Stroke Mother Stroke Brother Colon polyps Brother Prostate cancer Brother CAD (coronary artery disease) Social History Housing: House Alcohol intake: current Alcohol intake frequency: 0-2 drinks per day Patient Tobacco Use Status: Never used Tobacco e-Cigarette/Vaping Use: Never Used Second Hand Smoke Exposure: No service: Yes Current occupational status: retired Cognitive needs: No Hearing needs: No Vision needs: No Questionnaire PHQ-9 Over the last 2 weeks, how often have you been bothered by any of the following problems? 1. Little interest or pleasure in doing things: not at all 2. Feeling down, depressed, or hopeless: not at all 3. Trouble falling or staying asleep, or sleeping too much: not at all 4. Feeling tired or having little energy: not at all 5. Poor appetite or overeating: not at all 6. Feeling bad about yourself - or that you are a failure or have let yourself or your family down: not at all 7. Trouble concentrating on things, such as reading the newspaper or watching television: not at all 8. Moving or speaking so slowly that other people could have noticed. Or the opposite - being so fidgety or restless that you have been moving around a lot more than usual: not at all 9. Thoughts that you would be better off or of hurting yourself in some way: not at all Total score: 0 87264 - PHQ-9 Billing: Yes Source: Developed by Drs. Todd Martinez, Shyann Braga, Tae Torrez and colleagues, with an educational kaylin from [employer]. Thrive Questionnaire Date Thrive assessed: 09/20/24 I am a: Patient What is your living situation today?: I have a steady place to live Within the past 12 months, did the food you bought not last and you didn't have the money to get more?: Never true Within the past 12 months, did you worry whether your food would run out before you got money to buy more?: Never true Do you have trouble paying for medicines?: No Do you have trouble getting transportation to medical appointments?: No Do you have trouble paying your heating and electricity bill?: No Do you have trouble taking care of your child, family member or friend?: No Do you have trouble with day-to-day activities such as bathing, preparing meals, shopping, managing finances, etc.?: No Are you currently unemployed and looking for a job?: No Are you interested in more education?: No Please select the resources that you would like help with: None Currently or been in a relationship where the following occur: No concerns reported THRIVE Score: 0 AUDIT C Alcohol Use Questionnaire (AUDIT-C) 1. How often do you have a drink containing alcohol?: 4 or more times a week 2. How many drinks containing alcohol do you have on a typical day when you are drinking?: 1 or 2 3. How often do you have six or more drinks on one occasion?: Never Total Score: 4 Score Reviewed/Action Taken: Yes PJ-7 AMB Questionnaire PJ-7 Date PJ - 7 assessed: 09/20/24 Feeling nervous, anxious, or on edge: 0 = Not at all Not being able to stop or control worryin = Not at all Worrying too much about different things: 0 = Not at all Trouble relaxin = Not at all Being so restless that it is hard to sit still: 0 = Not at all Becoming easily annoyed or irritable: 0 = Not at all Feeling afraid as if something awful might happen: 0 = Not at all Total PJ-7 score (0-4 normal; 5-9 mild; 10-14 moderate; 15-21 severe): 0 Source: Developed by Drs. Todd Martinez, Shyann Braga, Tae Torrez and colleagues, with an educational kaylin from [employer]. PJ-7 Assessment Billing PJ-7 Assessment Tool: PJ-7 Assessment 50355 Review of Systems Const Denies chills, Denies headache(s) and Denies weight loss ENT Denies headache(s) Card Denies chest pain, Denies syncope, Denies irregular heart rhythm and Denies dyspnea Resp Denies chest congestion, Denies cough and Denies dyspnea GI Denies abdominal pain, Denies change in stool character, Denies nausea and Denies vomiting Musc Denies deformity and Denies joint swelling Neuro Denies syncope and Denies headache(s) Physical exam (Primary Care) Vital Signs: Last Vital Signs Temp 97.1 F 09/20/24 09:33 Pulse 60 09/20/24 09:33 BP 150/110 H 09/20/24 09:33 Pulse Ox 98 09/20/24 09:33 Oxygen Delivery Method Room Air 09/20/24 09:33 BMI result Body Mass Index 29.1 Tobacco/Smoking Status: Tobacco use Status Tobacco use date assessed 09/20/24 09/20/24 09:41 Patient Tobacco Use Status Never used Tobacco 09/20/24 09:38 e-Cigarette/Vaping Use Never Used 09/20/24 09:38 PHQ-9: PHQ-9 Score PHQ-9: Total score 0 09/20/24 09:41 Thrive Assessment: Date of Thrive Assessment Date Thrive assessed 09/20/24 09/20/24 09:38 Currently or been in a relationship where the following occur: No concerns reported Const General: cooperative, comfortable, no acute distress and alert Neck Neck: Yes no lymphadenopathy Thyroid: Thyroid normal Resp Effort & Inspection: normal respiratory effort Auscultation: clear to auscultation bilaterally Percussion: percussion normal Cardio Jugular venous distension: no JVD Palpation: normal PMI Rate: regular rate Rhythm: regular rhythm Heart sounds: S1 normal heart sound present and S2 normal heart sound present GI Inspection: Yes normal to inspection Palpation (GI): No hepatosplenomegaly present Skin General skin exam: no rashes or lesions noted Extrem General: Yes no clubbing, cyanosis or edema Coding Level of Care Code Est Pt Level 4 (36623) Diagnoses Diabetes mellitus with coincident hypertension E11.9; I10 Cognitive decline R41.89 Vitamin B12 deficiency E53.8 Additional Codes PJ-7 Assessment Billing - PJ-7 Assessment Tool: PJ-7 Assessment 15265 ([id number]) PHQ-9 - 78036 - PHQ-9 Billing: Yes ([id number]) Assessment & Plan Assessment & Plan (1) Diabetes mellitus with coincident hypertension: Code(s): E11.9 - Type 2 diabetes mellitus without complications; I10 - Essential (primary) hypertension Category: Medical Plan: to assist with diet (2) Cognitive decline: Code(s): R41.89 - Other symptoms and signs involving cognitive functions and awareness Category: Medical Plan: stable; family monitoring (3) Vitamin B12 deficiency: Code(s): E53.8 - Deficiency of other specified B group vitamins Category: Medical Plan: cont monthly injections
== END 2024-09-20 09:55 | disposition home or self-care (01) ==
PROVIDERS: PCP Internal Medicine; Visit Provider Internal Medicine
DX: E11.9 Type 2 diabetes mellitus without complications (principal); I10 Essential (primary) hypertension; R41.89 Other symptoms and signs involving cognitive functions and awareness; E53.8 Deficiency of other specified B group vitamins

== ENCOUNTER → 2024-09-20 09:23 | Outpatient (BNVA) | payer MEDICARE, OTHER, SELFPAY | PROVIDERS: PCP Internal Medicine; Visit Provider Internal Medicine | DX: E11.9 Type 2 diabetes mellitus without complications (principal); I10 Essential (primary) hypertension; R41.89 Other symptoms and signs involving cognitive functions and awareness; E53.8 Deficiency of other specified B group vitamins | CPT/HCPCS: 96127; 99212 ==

== ENCOUNTER 2024-10-11 08:45 | Outpatient (AMB) | payer MEDICARE, OTHER, SELFPAY ==
--- NOTE | 2024-10-11 08:45 | AM.OFFVISNUR ---
Intake Visit Reasons: b12 Allergies No Known Allergies Allergy (Verified 09/20/24 09:41) Office Meds cyanocobalamin (vitamin B-12) 1,000 mcg/mL injection solution Performing Provider: David Morton MD [facility] Administered by: Audrey Moser RN on 10/11/24 08:46 Dose Route Admin Location Dispensed Lot Number Expiration Date NDC Venue Manager 1,000 mcg IM left deltoid 1 mL [id number] 01/07/26 16547-200-45 [employer] Assessment & Plan Assessment & Plan Orders: Orders AMB Vitamin B12 Injection Patient Supplied Today E53.8 - Deficiency of other specified B group vitamins Medications: New cyanocobalamin (vitamin B-12) 1,000 mcg IM ONCE 1 mL 0RF E53.8 - Deficiency of other specified B group vitamins Coding
--- OUTSIDE RECORDS SUMMARY | 2024-10-11 09:23 | XMS_ITS | Encounter Summary ---
Author Organization [facility] Address [address] [place] [address] Care Team Providers Care Clinical Care Leader Name Role Phone David Morton Primary Care Provider Natasha e Emily Haile MD Unavailable [phone] Encounter Details Date Type Department Care Team Description 03/02/2024 Orders Only Cardio PVC POC [address] [facility] [address] [place] [address] Default, Provider Social History Tobacco Use Types [...] Date/Time Associated Diagnosis Comments OUTSIDE LAB Routine 09/26/2023 documented in this encounter Results * OUTSIDE LAB (09/26/2023) Provider Default LAB documented in this encounter Visit Diagnoses Not on filedocumented in this encounter Care Teams Clinical Care Leader Relationship Specialty Start Date End Date David Morton PCP - General Internal Medicine 03/17/18 Emily Haile MD Specialist Cardiology 02/28/21 documented as of this encounter
--- OUTSIDE RECORDS SUMMARY | 2024-10-11 09:23 | XMS_ITS | Encounter Summary ---
Author Organization [facility] Address [address] [place] [address] Care Team Providers Care Half Section Ironer Name Role Phone David Morton Primary Care Provider Unavailabl e Emily Haile MD Unavailable [phone] Reason for Visit * Reason Comments E-prescribe Rx Request Encounter Details Date Type Department Care Team Description 02/27/2021 Refill Cardio PVC POC [address] [facility] [address] [place], [place] [id number] Emily Haile MD [address] [place] [address] [phone] E-prescribe Rx Request Social History Tobacco Use [...] on filedocumented in this encounter Care Teams Half Section Ironer Relationship Specialty Start Date End Date David Morton PCP - General Internal Medicine 03/17/18 Emily Haile MD Specialist Cardiology 02/28/21 documented as of this encounter
--- OUTSIDE RECORDS SUMMARY | 2024-10-11 09:23 | XMS_ITS | Encounter Summary ---
Author Organization [facility] Address [address] [place] [address] Care Team Providers Care Bessemer Bottom Maker Name Role Phone David Morton Primary Care Provider Emily Leung MD Unavailable [phone] Encounter Details Date Type Department Care Team Description 12/10/2020 SCAN Medical Records [address] [place] [address] Abstract, Provider Social History Tobacco Use Types Packs/Day [...] Date/Time Associated Diagnosis Comments OUTSIDE LAB Routine 12/10/2020 documented in this encounter Results * OUTSIDE LAB (12/10/2020) Provider Default LAB documented in this encounter Visit Diagnoses Not on filedocumented in this encounter Care Teams Bessemer Bottom Maker Relationship Specialty Start Date End Date David Morton PCP - General Internal Medicine 03/17/18 Emily Haile MD Specialist Cardiology 02/28/21 documented as of this encounter
--- OUTSIDE RECORDS SUMMARY | 2024-10-11 09:23 | XMS_ITS | Encounter Summary ---
Author Organization [facility] Address [address] [place] [address] Care Team Providers Care Aircraft Skin Burnisher Name Role Phone David Morton Primary Care Provider Natasha e Emily Haile MD Unavailable [phone] Encounter Details Date Type Department Care Team Description 03/14/2024 Orders Only Cardio PVC POC [address] [facility] [address] [place] [address] Default, Provider Social History Tobacco Use Types [...] on filedocumented in this encounter Care Teams Aircraft Skin Burnisher Relationship Specialty Start Date End Date David Morton PCP - General Internal Medicine 03/17/18 Emily Haile MD Specialist Cardiology 02/28/21 documented as of this encounter
--- OUTSIDE RECORDS SUMMARY | 2024-10-11 09:24 | XMS_ITS | Encounter Summary ---
Author Organization [facility] Address [address] [place] [address] Care Team Providers Care Psychotherapist Counselor Name Role Phone David Morton Primary Care Provider Emily Leung MD Unavailable [phone] Encounter Details Date Type Department Care Team Description 02/28/2019 Rn Transitional Care Report Medical Records [address] [place] [address] Emily Haile MD [address] [place], [place] [phone] Social History Tobacco Use Types Packs/Day Years Used Date Smoking Tobacco: Never Smokeless Tobacco: Never Sex Assigned at Date Recorded Not on file Job Start Date Occupation Industry Not on file Not on file Not on file documented as of this encounter Plan of Treatment Not on file documented as of this encounter Visit Diagnoses Not on filedocumented in this encounter Care Teams Psychotherapist Counselor Relationship Specialty Start Date End Date David Morton PCP - General Internal Medicine 03/17/18 Emiyl Haile MD Specialist Cardiology 02/28/21 documented as of this encounter
--- OUTSIDE RECORDS SUMMARY | 2024-10-11 09:24 | XMS_ITS | Encounter Summary ---
Author Organization [facility] Address [address] [place] [address] Care Team Providers Care Truck Hopper Name Role Phone David Morton Primary Care Provider Emily Leung MD Unavailable [phone] Encounter Details Date Type Department Care Team Description 04/07/2018 Release of Information Medical Records [address] [place] [address] Abstract, Provider Social History Tobacco Use Types [...] on filedocumented in this encounter Care Teams Truck Hopper Relationship Specialty Start Date End Date David Morton PCP - General Internal Medicine 03/17/18 Emily Haile MD Specialist Cardiology 02/28/21 documented as of this encounter
--- OUTSIDE RECORDS SUMMARY | 2024-10-11 09:24 | XMS_ITS | Encounter Summary ---
Author Organization [facility] Address [address] [place] [address] Care Team Providers Care Director Technical Name Role Phone David Morton Primary Care Provider Unavailabl e Emily Haile MD Unavailable [phone] Reason for Visit * Reason Comments E-prescribe Rx Request Encounter Details Date Type Department Care Team Description 01/14/2023 Refill Cardio PVC POC [address] [facility] [address] [place] [phone] Emily Haile MD [address] [place] [address] [phone] E-prescribe Rx Request Social History Tobacco Use [...] filedocumented in this encounter Care Teams Director Technical Relationship Specialty Start Date End Date David Morton PCP - General Internal Medicine 03/17/18 Emily Haile MD Specialist Cardiology 02/28/21 documented as of this encounter
--- OUTSIDE RECORDS SUMMARY | 2024-10-11 09:24 | XMS_ITS | Encounter Summary ---
Author Organization [facility] Address [address] [place] [address] Care Team Providers Care Continuous Pickling Line Pickler Name Role Phone David Morton Primary Care Provider Unavailabl e Emily Haile MD Unavailable [phone] Reason for Visit * Reason Comments E-prescribe Rx Request Atorvastatin Encounter Details Date Type Department Care Team Description 06/20/2022 Refill Cardiology - [address] [phone] Emily Haile MD [address] [place] [address] [phone] E-prescribe Rx Request (Atorvastatin ) Social History Tobacco Use Types Packs/Day Years [...] encounter Miscellaneous Notes * Telephone Encounter - Apple Jurado C.M.A. - 06/20/2022 3:17 PM EST OV 02/2022 W/ Dr HAJI Lipid 02/2022 documented in this encounter Plan of Treatment Not on file documented as of this encounter Visit Diagnoses Not on filedocumented in this encounter Care Teams Continuous Pickling Line Pickler Relationship Specialty Start Date End Date David Morton PCP - General Internal Medicine 03/17/18 Emily Haile MD Specialist Cardiology 02/28/21 documented as of this encounter
--- OUTSIDE RECORDS SUMMARY | 2024-10-11 09:24 | XMS_ITS | Clinical Summary ---
Author Organization [facility] Address [address] [place] [address] Care Team Providers Care Patient Account Representative Name Role Phone Selene David Primary Care Provider Emily Leung MD Unavailable [phone] Allergies No known active allergies Medications [...] 40 MG tabletIndications:Cor onary artery disease involving [place] coronary artery of [place] heart without angina pectoris TAKE 1 TABLET BY MOUTH EVERY DAY 90 Tablet 2 09/22/2023 Active Active Problems Problem Noted Date Coronary artery disease invo lving [place] coronary artery of [place] heart without angina pectoris 04/05/2018 Overview: -s/p inferior STEMI??in late February 2018 during his vacation for which he presented to [facility] -cardiac cath (images reviewed by myself) at [facility], showing showed 90% mid RCA stenosis [...] Name Comments CAD Brother 1 had an VT at 42 , CABG, PCI CAD Brother [...] BMI CHECK/ADVISE 08/10/2024 04/05/2018, 04/05/2018 Care Teams Patient Account Representative Relationship Specialty Start Date End Date David Morton PCP - General Internal Medicine 03/17/18 Emily Haile MD Specialist Cardiology 02/28/21
--- OUTSIDE RECORDS SUMMARY | 2024-10-11 09:24 | XMS_ITS | Encounter Summary ---
Author Organization [facility] Address [address] [place] [address] Care Team Providers Care Klystrom Tube Tester Name Role Phone David Morton Primary Care Provider Emily Leung MD Unavailable [phone] Encounter Details Date Type Department Care Team Description 02/17/2022 SCAN Medical Records [address] [place] [address] Abstract, Provider Social History Tobacco Use Types [...] Date/Time Associated Diagnosis Comments OUTSIDE LAB Routine 02/17/2022 documented in this encounter Results * OUTSIDE LAB (02/17/2022) Provider Default LAB documented in this encounter Visit Diagnoses Not on filedocumented in this encounter Care Teams Klystrom Tube Tester Relationship Specialty Start Date End Date David Morton PCP - General Internal Medicine 03/17/18 Emily Haile MD Specialist Cardiology 02/28/21 documented as of this encounter
--- OUTSIDE RECORDS SUMMARY | 2024-10-11 09:24 | XMS_ITS | Clinical Summary ---
Author Organization [facility] Address [address] [place] [address] Care Team Providers Care Well Driller Helper Name Role Phone David Morton MD Primary Care Provider [phone] Allergies No known active allergies Medications lisinopril (PRINIVIL,ZESTR IL) 40 mg tabletIndicatio ns:Atherosclero tic heart disease of [place] coronary artery without angina pectoris TAKE 1 [...] times daily (with meals). Active FREESTYLE LANCETS MIS Active OneTouch Ultra Test test strip 1 [...] disease 04/05/2018 Coronary artery disease invo lving [place] coronary artery of [place] heart without angina pectoris 04/05/2018 Overview (09/05/2024): -s/p inferior STEMI??in late February 2018 during his vacation for which he presented to [facility] -cardiac cath (images reviewed by myself) at [facility], showing showed 90% mid RCA stenosis which [...] Coronary artery disease Brother 1 had an RI at 42, CABG, PCI Coronary artery disease [...] Recorded Sex Assigned at Not on file Legal Sex Male 7:20 AM EST Gender Identity Not on file Sexual Orientation [...] Description 03/01/2025 9:50 AM EDT Office Visit [facility] [address] [facility] [address] [place] [address] Emily Haile MD [address] [place] [address] Health Maintenance Due Date Last Done Comments Diabetes: Annual Foot Exam 1961 Diabetes: Annual Retina Eye Exam 1961 DTaP,Tdap,and Td Vaccines (1 - Tdap) 1970 Pneumococcal Vaccine: 50+ Years (1 of 2 - PCV) 1970 Zoster Vaccines (1 of 2) 2001 [...] BMP Blood Test 02/25/2023 02/25/2022 COVID-19 Vaccine (2023- season) 2024 Influenza Vaccine (#1) 2024 , [...] patient's age to complete this topic Meningococcal B Vacine Aged Out No lo nger eligible based on patient's age to complete [...] Annual BMP Blood Test abstracted Historical Provider HEALTH MAINTENANCE Final Result from Last 3 Months or Most Recently Relevant to Health Maintenance Insurance MEDICARE Care Teams Well Driller Helper Relationship Specialty Start Date End Date David Morton MD [address] [place] [address] Drive [address] [place] [address] PCP - General Internal Medicine 03/17/18
== END 2024-10-11 08:54 | disposition home or self-care (01) ==
PROVIDERS: PCP Internal Medicine; Visit Provider Internal Medicine
DX: E53.8 Deficiency of other specified B group vitamins (principal)

== ENCOUNTER → 2024-10-11 08:45 | Outpatient (BNVA) | payer MEDICARE, OTHER, SELFPAY | PROVIDERS: PCP Internal Medicine; Visit Provider Internal Medicine | DX: E53.8 Deficiency of other specified B group vitamins (principal) | CPT/HCPCS: 96372; J3420 ==

== ENCOUNTER 2024-11-10 08:50 | Outpatient (AMB) | payer MEDICARE, OTHER, SELFPAY ==
--- NOTE | 2024-11-10 09:00 | AM.OFFVISNUR ---
Intake Visit Reasons: B12 Shot Allergies No Known Allergies Allergy (Verified 09/20/24 09:41) Office Meds cyanocobalamin (vitamin B-12) 1,000 mcg/mL injection solution Performing Provider: John Barry MD [facility] Administered by: Kathryn Duke LPN on 11/10/24 09:00 Dose Route Admin Location Dispensed Lot Number Expiration Date [facility] Patient Insurance Clerk 1,000 mcg IM left deltoid 1 mL [id number] 01/07/26 11770-578-89 [employer] Assessment & Plan Assessment & Plan Orders: Orders AMB Vitamin B12 Injection Patient Supplied Today E53.8 - Deficiency of other specified B group vitamins Medications: New cyanocobalamin (vitamin B-12) 1,000 mcg IM ONCE 1 mL 0RF E53.8 - Deficiency of other specified B group vitamins Coding
--- OUTSIDE RECORDS SUMMARY | 2024-11-10 09:02 | XMS_ITS | Clinical Summary ---
Author Organization [facility] Address [address] [place] [address] Care Team Providers Care Archeologist Name Role Phone David Morton MD Primary Care Provider [phone] Allergies No known active allergies Medications lisinopril (PRINIVIL,ZESTR IL) 40 mg tabletIndicatio ns:Atherosclero tic heart disease of [place] coronary artery without angina pectoris TAKE 1 [...] disease 04/05/2018 Coronary artery disease invo lving [place] coronary artery of [place] heart without angina pectoris 04/05/2018 Overview (09/05/2024): -s/p inferior STEMI??in late February 2018 during his vacation for which he presented to [facility] -cardiac cath (images reviewed by myself) at [facility], showing showed 90% mid RCA stenosis [...] Coronary artery disease Brother 1 had an NM at 42, CABG, PCI Coronary artery disease [...] Description 03/01/2025 9:50 AM EDT Office Visit [facility] [address] [facility] [address] [place] [address] Emily Haile MD [address] [place] [address] Health Maintenance Due Date Last Done Comments [...] Blood Test 02/25/2023 02/25/2022 COVID-19 Vaccine ( - 2023- season) 2024 Influenza Vaccine (#1) 2024 , 05/07/2020, 03/30/2019, Additional history exists RSV Immunization Adult Patients (1 - 1-dose 75+ series) 2026 HIB [...] BMP Blood Test abstracted Historical Provider MD HEALTH MAINTENANCE Final Result from Last 3 Months or Most Recently Relevant to Health Maintenance Insurance MEDICARE Care Teams Archeologist Relationship Specialty Start Date End Date David Morton MD [address] [place] [address] Drive [address] [place] [address] PCP - General Internal Medicine 03/17/18
== END 2024-11-10 09:01 | disposition home or self-care (01) ==
LOC: HO.HMCH 08:51
PROVIDERS: PCP Internal Medicine; Visit Provider Internal Medicine
DX: E53.8 Deficiency of other specified B group vitamins (principal)

== ENCOUNTER → 2024-11-10 08:50 | Outpatient (BNVA) | payer MEDICARE, OTHER, SELFPAY | PROVIDERS: PCP Internal Medicine; Visit Provider Internal Medicine | DX: E53.8 Deficiency of other specified B group vitamins (principal) | CPT/HCPCS: 96372; J3420 ==

== ENCOUNTER 2024-12-13 12:11 | Outpatient (AMB) | payer MEDICARE, OTHER, SELFPAY ==
[2024-12-13 12:31] VITALS: BP 140/102; PULSE 69; O2SAT 97; BMI 29.1
--- NOTE | 2024-12-13 12:31 | A.OFFPC_ITS ---
Vital Signs 12/13/24 12:31 12/13/24 12:59 Height 5 ft 5 in Weight 175 lb BMI 29.1 BP 140/102 H 122/88 Blood Pressure Location Lt brachial Lt brachial Position Sitting Sitting Pulse 69 Pulse Source Pulse Oximeter Pulse Oximetry (%) 97 Oxygen Delivery Method Room Air Intake Visit Reasons: ALAN Dr Morton Internal Controls Specialist Required: No Accompanied by: Self / Same As Patient Allergies No Known Allergies Allergy (Verified 12/13/24 12:52) Medication List - Last Reconciled 12/13/24 by John Barry MD aspirin 81 mg PO DAILY atenolol 100 mg PO DAILY atorvastatin 80 mg PO DAILY 90 days blood sugar diagnostic (FreeStyle Lite Strips) test blood sugars once a day citalopram 20 mg PO DAILY cyanocobalamin (vitamin B-12) 1,000 mcg subcutaneously weekly x 4 weeks. Then once per month. 4 weeks lisinopril 40 mg PO DAILY metformin 1,000 mg (2 x 500 mg) PO BID Tobacco use date assessed: 12/13/24 Fall risk assessment: No Falls in past year Last assessed Fall Risk: 12/13/24 Dental Screening Dental Screen Date: 12/13/24 Did you have a dental visit in the last 12 months?: Yes Did you have a dental problem in the last 6 months where you did not have access to dental care?: No Was dental information given to patient?: Patient has dentist HPI ALAN Dr Morton HPI Details Patient comes in today for his follow up visit - is transferring over from Dr. Morton who retired from the practice a couple of months ago Patient states that he feels okay He denies any headaches or dizziness Denies any chest pains, no SOB No nausea/vomiting, no abdominal pain No change in bowel habits noted Needs his Atorvastatin Rx refilled and also to get his B12 injection today He has no follow up labs done recently - labs were last done in September 2024 [facility] Medical History (Updated 12/13/24 @ 13:28 by John Barry MD) Overweight (BMI 25.0-29.9) Anxiety disorder Vitamin B12 deficiency Mixed hyperlipidemia Essential hypertension Diabetes mellitus Surgical History History of colonoscopy History of cataract surgery History of ankle surgery History of rectal polypectomy History of inguinal hernia repair Family History Father Stroke Mother Stroke Brother Colon polyps Brother Prostate cancer Brother CAD (coronary artery disease) Social History Housing: House Alcohol intake: current Alcohol intake frequency: 0-2 drinks per day Patient Tobacco Use Status: Never used Tobacco e-Cigarette/Vaping Use: Never Used Second Hand Smoke Exposure: No service: Yes Current occupational status: retired Cognitive needs: No Hearing needs: No Vision needs: No Questionnaire PHQ-9 Over the last 2 weeks, how often have you been bothered by any of the following problems? 1. Little interest or pleasure in doing things: not at all 2. Feeling down, depressed, or hopeless: not at all 3. Trouble falling or staying asleep, or sleeping too much: more than half the days 4. Feeling tired or having little energy: not at all 5. Poor appetite or overeating: several days 6. Feeling bad about yourself - or that you are a failure or have let yourself or your family down: not at all 7. Trouble concentrating on things, such as reading the newspaper or watching television: more than half the days 8. Moving or speaking so slowly that other people could have noticed. Or the opposite - being so fidgety or restless that you have been moving around a lot more than usual: not at all 9. Thoughts that you would be better off or of hurting yourself in some way: not at all Total score: 5 Depression Screening Interpretation: Positive Depression Screening Follow-up: E xisting condition and In treatment Depression Screening Done: Yes 06352 - PHQ-9 Billing: Yes Source: Developed by Drs. Todd Martinez, Shyann Braga, Tae Torrez and colleagues, with an educational kaylin from [employer]. Thrive Questionnaire Date Thrive assessed: 12/13/24 I am a: Patient What is your living situation today?: I have a steady place to live Within the past 12 months, did the food you bought not last and you didn't have the money to get more?: Never true Within the past 12 months, did you worry whether your food would run out before you got money to buy more?: Never true Do you have trouble paying for medicines?: No Do you have trouble getting transportation to medical appointments?: No Do you have trouble paying your heating and electricity bill?: No Do you have trouble taking care of your child, family member or friend?: No Do you have trouble with day-to-day activities such as bathing, preparing meals, shopping, managing finances, etc.?: No Are you currently unemployed and looking for a job?: No Are you interested in more education?: No Please select the resources that you would like help with: None Currently or been in a relationship where the following occur: No concerns reported THRIVE Score: 0 AUDIT C Alcohol Use Questionnaire (AUDIT-C) 1. How often do you have a drink containing alcohol?: 4 or more times a week 2. How many drinks containing alcohol do you have on a typical day when you are drinking?: 1 or 2 3. How often do you have six or more drinks on one occasion?: Never Total Score: 4 Score Reviewed/Action Taken: Yes PJ-7 AMB Questionnaire PJ-7 Date PJ - 7 assessed: 12/13/24 Feeling nervous, anxious, or on edge: 1 = Several days Not being able to stop or control worryin = Not at all Worrying too much about different things: 0 = Not at all Trouble relaxin = Not at all Being so restless that it is hard to sit still: 0 = Not at all Becoming easily annoyed or irritable: 1 = Several days Feeling afraid as if something awful might happen: 0 = Not at all Total PJ-7 score (0-4 normal; 5-9 mild; 10-14 moderate; 15-21 severe): 2 Source: Developed by Drs. Todd Martinez, Shyann Braga, Tae Torrez and colleagues, with an educational kaylin from [employer]. Review of Systems Const Denies chills, Denies fatigue, Denies fever(s) and Denies headache(s) ENT Denies dysphagia, Denies dizziness, Denies otalgia, Denies headache(s), Denies neck pain, Denies odynophagia and Denies sore throat Card Denies chest pain, Denies palpitations and Denies dyspnea Resp Denies chest congestion, Denies cough and Denies dyspnea GI Denies abdominal pain, Denies constipation, Denies dysphagia, Denies heartburn, Denies diarrhea, Denies nausea, Denies odynophagia and Denies vomiting Denies difficulty urinating, Denies dysuria, Denies nocturia and Denies urinary frequency Musc Denies back pain and Denies neck pain Skin/Breast Denies rash Neuro Denies dizziness and Denies headache(s) Psych Reports anxiety Endo Denies fatigue and Denies palpitations Physical exam (Primary Care) Vital Signs: Last Vital Signs Pulse 69 12/13/24 12:31 BP 140/102 H 12/13/24 12:31 Pulse Ox 97 12/13/24 12:31 Oxygen Delivery Method Room Air 12/13/24 12:31 BMI result Body Mass Index 29.1 Tobacco/Smoking Status: Tobacco use Status Tobacco use date assessed 12/13/24 12/13/24 12:35 Patient Tobacco Use Status Never used Tobacco 12/13/24 12:35 e-Cigarette/Vaping Use Never Used 12/13/24 12:35 PHQ-9: PHQ-9 Score PHQ-9: Total score 5 12/13/24 12:55 Depression Screening Interpretation: Positive Depression Screening Follow-up: Existing condition and In treatment Thrive Assessment: Date of Thrive Assessment Date Thrive assessed 12/13/24 12/13/24 12:35 Currently or been in a relationship where the following occur: No concerns reported Const General: no acute distress and alert HENMT Ears: TM's normal bilaterally and EAC's normal Throat: Yes posterior oropharynx normal and Yes tonsils normal (no TP congestion) Neck Neck: Yes supple and No lymphadenopathy Thyroid: Thyroid normal Resp Auscultation: clear to auscultation bilaterally, no rales and no wheezes Cardio Rate: regular rate Rhythm: regular rhythm Heart sounds: no murmurs GI Palpation (GI): Soft to palpation and nontender Auscultation: normal bowel sounds General: Yes no CVA tenderness Back/Spine/Pelvis Back: no CVA tenderness Thoracic/Lumbar Spine: No lumbar spinal tenderness Skin Rashes: no rashes Extrem General: Yes no clubbing, cyanosis or edema Office Meds cyanocobalamin (vitamin B-12) 1,000 mcg/mL injection solution Performing Provider: John Barry MD Performing Location: [facility] Administered by: Kathryn Duke LPN on 12/13/24 12:58 Dose Route Admin Location Dispensed Lot Number Expiration Date [facility] Package Delivery Driver 1,000 mcg IM left deltoid 1 mL [id number] 03/09/26 94156-368-47 [employer] Results AMB Hemoglobin A1c AMB Hemoglobin A1c 7.9 % Last Edit by CONCHA Jade on 12/13/24 12 :56 Results Reviewed Results Reviewed: Laboratory Last Values Hgb A1c (Clinic) 7.9 % (4.0-6.0) H 12/13/24 12:41 Coding Level of Care Code Est Pt Level 4 (67959) Diagnoses Type 2 diabetes mellitus without complication, without long-term current use of insulin E11.9 Diabetes mellitus type: type 2 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: without intermodal owner operator truck driver use Diabetes mellitus complication status: without complication Essential hypertension I10 Mixed hyperlipidemia E78.2 Vitamin B12 deficiency E53.8 Elevated bilirubin R17 Generalized anxiety disorder F41.1 Anxiety disorder type: generalized anxiety disorder Overweight (BMI 25.0-29.9) E66.3 Additional Codes PHQ-9 - 58272 - PHQ-9 Billing: Yes ([id number]) Assessment & Plan Assessment & Plan (1) Diabetes mellitus: Code(s): E11.9 - Type 2 diabetes mellitus without complications Category: Medical Qualifiers: Diabetes mellitus type: type 2 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: without retirement use Diabetes mellitus complication status: without complication Qualified Code(s): E11.9 - Type 2 diabetes mellitus without compl ications Plan: Patient's in-office HgbA1c today is at 7.9% (his HgbA1c was at 8.4% back in September 2024) - goal is at least <7.0% Reinforced diabetic diet Continue Metformin 1000 mg BID (2) Essential hypertension: Code(s): I10 - Essential (primary) hypertension Category: Medical Plan: Reinforced low sodium diet - goal is systolic BP of 120 mm or less Patient states that he thinks he has some component of white-coat syndrome as his blood pressure would often run high when he comes into the office but is much better/lower when he checks them at home States that he also suffers from anxiety and this may be affecting his BP readings here in the office Continue Atenolol 100 mg QD and Lisinopril 40 mg QD His repeat BP in the office today came down to around 122/88 mm Patient is reminded to continue monitoring his blood pressure regularly at home (3) Mixed hyperlipidemia: Code(s): E78.2 - Mixed hyperlipidemia Category: Medical Plan: Reinforced low cholesterol diet Continue Atorvastatin 80 mg QD - Rx refilled Will have patient recheck his labs and fasting lipids in 4 months for follow up (4) Vitamin B12 deficiency: Code(s): E53.8 - Deficiency of other specified B group vitamins Category: Medical Plan: B12 injection given in the office today Patient states that he has been getting his B12 injection monthly for a while now Will recheck some labs to evaluate this further in 4 months (5) Elevated bilirubin: Code(s): R17 - Unspecified jaundice Category: Medical Plan: Will recheck his LFTs in 4 months for follow up (6) Anxiety disorder: Code(s): F41.9 - Anxiety disorder, unspecified Category: Medical Qualifiers: Anxiety disorder type: generalized anxiety disorder Qualified Code(s): F41.1 - Generalized anxiety disorder Plan: Continue Citalopram 20 mg QD (7) Overweight (BMI 25.0-29.9): Code(s): E66.3 - Overweight Category: Medical Plan: Reinforced diet/exercise as tolerated/lose weight Plan Follow up in 4 months Orders: Orders AMB Hemoglobin A1c Today Z13.9 - Encounter for screening, unspecified Complete Blood Count Auto Diff 4 Months D64.9 - Anemia, unspecified TSH reflex Free T4 4 Months E78.00 - Pure hypercholesterolemia, unspecified UA CC w/rflx Micro + Cult 4 Months R30.0 - Dysuria Vitamin B12 and Folate 4 Months E53.8 - Deficiency of other specified B group vitamins Methylmalonic Acid 4 Months E53.8 - Deficiency of other specified B group vitamins AMB Vitamin B12 Injection Patient Supplied Today E53.8 - Deficiency of other specified B group vitamins Comprehensive [place]. Panel Fast 4 Months E78.00 - Pure hypercholesterolemia, unspecified Lipid Panel 4 Months E78.00 - Pure hypercholesterolemia, unspecified Hemoglobin A1c 4 Months E11.9 - Type 2 diabetes mellitus without complications Microalbumin, Random (w Creat) 4 Months E11.9 - Type 2 diabetes mellitus without complications Vitamin D 25-OH Total 4 Months E55.9 - Vitamin D deficiency, unspecified Intrinsic Factor Antibodies 4 Months E53.8 - Deficiency of other specified B group vitamins Bilirubin Direct 4 Months R17 - Unspecified jaundice Medications: Changed From atorvastatin 80 mg PO DAILY 90 tabs 0RF To atorvastatin 80 mg PO DAILY 90 days 90 tabs 1RF
[2024-12-13 12:59] VITALS: BP 122/88
--- OUTSIDE RECORDS SUMMARY | 2024-12-13 13:37 | XMS_ITS | Encounter Summary ---
Author Organization [facility] Address [address] [place] [address] Care Team Providers Care Filer And Sander Name Role Phone David Morton Primary Care Provider Emily Leung MD Unavailable [phone] Encounter Details Date Type Department Care Team Description 04/07/2018 Release of Information Medical Records [address] [place] [id number] Abstract, Provider Social History Tobacco Use Types [...] on filedocumented in this encounter Care Teams Filer And Sander Relationship Specialty Start Date End Date David Morton PCP - General Internal Medicine 03/17/18 Emily Haile MD Specialist Cardiology 02/28/21 documented as of this encounter
--- OUTSIDE RECORDS SUMMARY | 2024-12-13 13:37 | XMS_ITS | Encounter Summary ---
Author Organization [facility] Address [address] [place] [address] Care Team Providers Care Lay Out Machine Operator Name Role Phone David Morton Primary Care Provider Emily Leung MD Unavailable [phone] Encounter Details Date Type Department Care Team Description 04/15/2018 Transfer Records Medical Records [address] [place] [address] Abstract, Provider Social History Tobacco Use Types [...] on filedocumented in this encounter Care Teams Lay Out Machine Operator Relationship Specialty Start Date End Date David Morton PCP - General Internal Medicine 03/17/18 Emily Haile MD Specialist Cardiology 02/28/21 documented as of this encounter
--- OUTSIDE RECORDS SUMMARY | 2024-12-13 13:37 | XMS_ITS | Encounter Summary ---
Author Organization [facility] Address [address] [place] [address] Care Team Providers Care Race Car Driver Name Role Phone David Morton Primary Care Provider Emily Leung MD Unavailable [phone] Encounter Details Date Type Department Care Team Description 05/31/2020 SCAN Medical Records [address] [place] [address] Abstract, Provider Social History Tobacco Use Types [...] Date/Time Associated Diagnosis Comments OUTSIDE LAB Routine 05/31/2020 documented in this encounter Results * OUTSIDE LAB (05/31/2020) Provider Default LAB documented in this encounter Visit Diagnoses Not on filedocumented in this encounter Care Teams Race Car Driver Relationship Specialty Start Date End Date David Morton PCP - General Internal Medicine 03/17/18 Emily Haile MD Specialist Cardiology 02/28/21 documented as of this encounter
--- OUTSIDE RECORDS SUMMARY | 2024-12-13 13:37 | XMS_ITS | Encounter Summary ---
Author Organization [facility] Address [address] [place] [address] Care Team Providers Care Therapeutic Massage Technician Name Role Phone David Morton Primary Care Provider Unavailabl e Emily Haile MD Unavailable [phone] Reason for Visit * Reason Comments E-prescribe Rx Request Encounter Details Date Type Department Care Team Description 02/27/2021 Refill Cardio PVC POC [address] [facility] [address] [place], [place] [id number] Emily Haile MD [address] [place] [address] [id number] E-prescribe Rx Request Social History Tobacco Use [...] on filedocumented in this encounter Care Teams Therapeutic Massage Technician Relationship Specialty Start Date End Date David Morton PCP - General Internal Medicine 03/17/18 Emily Haile MD Specialist Cardiology 02/28/21 documented as of this encounter
--- OUTSIDE RECORDS SUMMARY | 2024-12-13 13:37 | XMS_ITS | Encounter Summary ---
Author Organization [facility] Address [address] [place] [address] Care Team Providers Care Top Bottom Attaching Machine Operator Name Role Phone David Morton Primary Care Provider Emily Leung MD Unavailable [phone] Encounter Details Date Type Department Care Team Description 12/10/2020 SCAN Medical Records [address] [place] [address] Abstract, Provider Social History Tobacco Use Types [...] on filedocumented in this encounter Care Teams Top Bottom Attaching Machine Operator Relationship Specialty Start Date End Date David Morton PCP - General Internal Medicine 03/17/18 Emily Haile MD Specialist Cardiology 02/28/21 documented as of this encounter
--- OUTSIDE RECORDS SUMMARY | 2024-12-13 13:37 | XMS_ITS | Encounter Summary ---
Author Organization [facility] Address [address] [place] [address] Care Team Providers Care Supervisor Fabrication Department Name Role Phone David Morton Primary Care Provider Unavailabl e Emily Haile MD Unavailable [phone] Reason for Visit * Reason Comments E-prescribe Rx Request Atorvastatin Encounter Details Date Type Department Care Team Description 06/20/2022 Refill Cardiology - [address] [id number] Emily Haile MD [address] [place] [address] [phone] E-prescribe Rx Request (Atorvastatin ) Social History [...] on filedocumented in this encounter Care Teams Supervisor Fabrication Department Relationship Specialty Start Date End Date David Morton PCP - General Internal Medicine 03/17/18 Emily Haile MD Specialist Cardiology 02/28/21 documented as of this encounter
== END 2024-12-13 13:08 | disposition home or self-care (01) ==
LOC: HO.HMCH 12:12
PROVIDERS: PCP Internal Medicine; Visit Provider Internal Medicine
DX: E11.9 Type 2 diabetes mellitus without complications (principal); I10 Essential (primary) hypertension; E78.2 Mixed hyperlipidemia; E53.8 Deficiency of other specified B group vitamins; R17 Unspecified jaundice; F41.1 Generalized anxiety disorder; E66.3 Overweight; Z13.9 Encounter for screening, unspecified

== ENCOUNTER → 2024-12-13 12:11 | Outpatient (BNVA) | payer MEDICARE, OTHER, SELFPAY | PROVIDERS: PCP Internal Medicine; Visit Provider Internal Medicine | DX: E53.8 Deficiency of other specified B group vitamins (principal); E11.9 Type 2 diabetes mellitus without complications; E78.2 Mixed hyperlipidemia; I10 Essential (primary) hypertension; R17 Unspecified jaundice; F41.1 Generalized anxiety disorder; E66.3 Overweight; Z68.29 Body mass index [BMI] 29.0-29.9, adult; Z71.3 Dietary counseling and surveillance | CPT/HCPCS: 83036; 96127; 96372; 99212; J3420 ==

== ENCOUNTER 2025-01-12 09:17 | Outpatient (AMB) | payer MEDICARE, OTHER, SELFPAY ==
--- NOTE | 2025-01-12 09:31 | AM.OFFVISNUR ---
Intake Visit Reasons: B-12 shot Allergies No Known Allergies Allergy (Verified 12/13/24 12:52) Office Meds cyanocobalamin (vitamin B-12) 1,000 mcg/mL injection solution Performing Provider: John Barry MD [facility] Administered by: Laisha Reyes RN on 01/12/25 09:31 Dose Route Admin Location Dispensed Lot Number Expiration Date [facility] Early Morning Babysitter 1,000 mcg IM left deltoid 1 mL [id number] 07/09/26 66383-956-74 [employer] Assessment & Plan Assessment & Plan Orders: Orders AMB Vitamin B12 Injection Patient Supplied Today E53.8 - Deficiency of other specified B group vitamins Medications: New cyanocobalamin (vitamin B-12) 1,000 mcg IM ONCE 1 mL 0RF E53.8 - Deficiency of other specified B group vitamins Coding
== END 2025-01-12 09:33 | disposition home or self-care (01) ==
LOC: HO.HMCH 09:18
PROVIDERS: PCP Internal Medicine; Visit Provider Internal Medicine
DX: E53.8 Deficiency of other specified B group vitamins (principal)

== ENCOUNTER → 2025-01-12 09:17 | Outpatient (BNVA) | payer MEDICARE, OTHER, SELFPAY | PROVIDERS: PCP Internal Medicine; Visit Provider Internal Medicine | DX: E53.8 Deficiency of other specified B group vitamins (principal) | CPT/HCPCS: 96372; J3420 ==

== ENCOUNTER 2025-02-09 08:47 | Outpatient (AMB) | payer MEDICARE, OTHER, SELFPAY ==
--- OUTSIDE RECORDS SUMMARY | 2025-02-09 08:54 | XMS_ITS | Patient Health Record ---
Author Organization [facility] Address [address] [place] [address] Care Team Providers Care Router Operator Radial Name Role Phone Selene OQUENDO, David Primary Care Provider Todd Shepherd Unavailable [phone] Reason For Referral No Information Medications Medication SIG (Take, Route, Fr equency, Duration) Notes Start Date End Date Status Atenolol 08/10/2024 08/10/2024 Active hydroCHLOROthiazide 08/10/2024 1 Active Aspirin 81 MG Orally for 30 day(s) Active Atorvastatin Calcium 08/10/2024 08/10/99 01 Active MoviPrep 100 GM as directed Orally o nce for 1 dose 07/06/2012 Active Problems Problem Type SNOMED Code ICD Code Onset Dates Problem Status W/U Status Risk Notes Problem Colon cancer screening (V76.51) Active confirmed Problem History of adenomatous polyp of colon (982566341) History of adenomatous polyp of colon (V12.72) Active confirmed Plan Of Treatment Future Test Test Name Order Date COLONOSCOPY 07/06/2012 Insurance Providers Payer Name Payer Address Payer Phone Subscriber Number Group Number Insured Name Patient Relationship to Insured Coverage Start Date Coverage End Date [facility] [address] CLAUS RAE [id number] [phone] [id number] [employer] Self - patient is the insured Medical (General) History Medical History History ICD Code Colonoscopy 05/04/2006-1 tubular adenoma removed Hypertension Hyperlipidemia Denies MS,DM,CVA,Lung disease,renal dise ase Surgical History Surgery Date(Month/Year) Hernia surgery Broken leg
--- OUTSIDE RECORDS SUMMARY | 2025-02-09 08:54 | XMS_ITS | Clinical Summary ---
Author Organization [facility] Address [address] [place] [address] Care Team Providers Care Assistant Scientist Name Role Phone David Morton MD Primary Care Provider [phone] Allergies No known active allergies Medications lisinopril (PRINIVIL,ZESTR IL) 40 mg tabletIndicatio ns:Atherosclero tic heart disease of [place] coronary artery without angina pectoris TAKE 1 [...] times daily (with meals). Active FREESTYLE LANCETS [facility] Active OneTouch Ultra Test test strip 1 [...] disease 04/05/2018 Coronary artery disease invo lving [place] coronary artery of [place] heart without angina pectoris 04/05/2018 Overview (09/05/2024): -s/p inferior STEMI in late February 2018 during his vacation for which he presented to [facility] -cardiac cath (images reviewed by myself) at [facility], showing showed 90% mid RCA stenosis which received a drug-eluting stent. He also had a 60% mid LAD stenosis shortly after the first diagonal vessel and a 50-60% D1 stenosis. The LAD lesion is found to be in significant by FFR at 0.94 -echocardiogram in 2018 (reviewed by myself) preserved ejection fraction at 60-65%, normal RV size and systolic function, no [...] atorvastatin, current atenolol, baby aspirin. Diabetes mellitus (CMS/HCC V24, CMS/HCC V28) Essential hypertension 04/05/2018 Overview (09/05/2024): Last Assessment [...] Coronary artery disease Brother 1 had an DC at 42, CABG, PCI Coronary artery disease [...] Description 03/01/2025 9:50 AM EDT Office Visit [facility] [address] [facility] [address] [place] [address] Emily Haile MD [address] [place] [address] Health Maintenance Due Date Last Done Comments [...] ( - 2023- season) 2024 Influenza Vaccine (Season Ended) 2025 06/03/2021, 05/07/2020, 03/30/2019, Additional history exists RSV Immunization [...] age to complete this topic Meningococcal B Vaccine Aged Out No l onger eligible based on patient's age to complete [...] to Health Maintenance Insurance MEDICARE Care Teams Assistant Scientist Relationship Specialty Start Date End Date David Morton MD [address] [place] [address] [address] [place] [address] PCP - General Internal Medicine 03/17/18
--- NOTE | 2025-02-09 08:55 | AM.OFFVISNUR ---
Intake Visit Reasons: B12 Shot Allergies No Known Allergies Allergy (Verified 12/13/24 12:52) Office Meds cyanocobalamin (vitamin B-12) 1,000 mcg/mL injection solution Performing Provider: John Barry MD Performing [facility] Administered by: Laisha Reyes RN on 02/09/25 08:55 Dose Route Admin Location Dispensed Lot Number Expiration Date [facility] Layer Up 1,000 mcg IM 1 mL [id number] 07/09/26 68660-567-89 [employer] Total Dispensed Waste 1 mL 0 % Assessment & Plan Assessment & Plan Orders: Orders AMB Vitamin B12 Injection Patient Supplied Today E53.8 - Deficiency of other specified B group vitamins Coding
== END 2025-02-09 08:57 | disposition home or self-care (01) ==
LOC: HO.HMCH 08:47
PROVIDERS: PCP Internal Medicine; Visit Provider Internal Medicine
DX: E53.8 Deficiency of other specified B group vitamins (principal)

== ENCOUNTER → 2025-02-09 08:47 | Outpatient (BNVA) | payer MEDICARE, OTHER, SELFPAY | PROVIDERS: PCP Internal Medicine; Visit Provider Internal Medicine | DX: E53.8 Deficiency of other specified B group vitamins (principal) | CPT/HCPCS: 96372; J3420 ==

== ENCOUNTER 2025-03-14 07:51 | Outpatient (REF) | payer MEDICARE, OTHER, SELFPAY ==
--- OUTSIDE RECORDS SUMMARY | 2025-03-14 07:54 | XMS_ITS | Clinical Summary ---
Author Organization [address] [place] [address] Address [address] [place] [address] Phone Care Team Providers Care Procurement Representative Name Role Phone David Morton MD Primary Care Provider [phone] Allergies No known active allergies Medications atorvastatin (LIPITOR) 80 mg tablet Take 1 tablet (80 mg total) by mouth 1 (one) time each day. 3 Active atenoloL (TENORMIN) 100 mg tablet Take 1 tablet (100 mg total) by mouth 1 (one) time each day. 1 Active metFORMIN (GLUCOPHAGE) 500 mg tablet Take 1,000 mg by mouth 2 times daily (with meals). Active FREESTYLE LANCETS MISC Active OneTouch Ultra Test test strip 1 Strip by In Vitro route as needed. Active aspirin 81 mg EC tablet Take 81 mg by mouth daily. Active nitroglycerin (NITROSTAT) 0.[address] 1 Tab under the tongue every 5 minutes as needed for Chest pain. 8 Active lisinopril (PRINIVIL,ZEST RIL) 40 mg tabletIndicati ons:Atheroscle rotic heart disease of [place] coronary artery without angina pectoris TAKE 1 TABLET BY MOUTH EVERY DAY 90 tablet 5 Active lisinopril (PRINIVIL,ZEST RIL) 40 mg tabletIndicati ons:Atheroscle rotic heart disease of [place] coronary artery without angina pectoris TAKE 1 TABLET BY MOUTH EVERY DAY 90 tablet 2 4 02/17/20 25 Discontinued Active Problems Problem Noted Date Diagnosed Date Cervical spine disease 04/05/2018 Coronary artery disease invo lving [place] coronary artery of [place] heart without angina pectoris 04/05/2018 Overview (09/05/2024): -s/p inferior STEMI in late February 2018 during his vacation for which he presented to [facility] -cardiac cath (images reviewed by myself) at [facility], showing showed 90% mid RCA stenosis [...] Coronary artery disease Brother 1 had an [place] at 42, CABG, PCI Coronary artery disease [...] Care Team (Late st Contact Info) Description 04/18/2025 10:40 AM EDT Office Visit [facility] [address] [facility] [address] [place] [id number] Nallely Galeas NP [address] [facility] [address] [place] [address] Health Maintenance Due Date Last Done Comments Diabetes: Annual Foot Exam 1961 Diabetes: Annual Retina Eye Exam 1961 DTaP,Tdap,and Td Vaccines (1 - Tdap) 1970 Pneumococcal Vaccine: 50+ Years (1 of 2 - PCV) 1970 Zoster Vaccines (1 of 2) 2001 Abdominal Aortic Aneurysm (AAA) Screen 07/20/2022 Cholesterol Screening (Lipid Panel) 07/20/2022 Colorectal Cancer Screening: Colonoscopy 07/20/2022 Diabetes: Annual Urine Albumin-Creatinine Ratio (uACR) 07/20/2022 Diabetes: Blood Sugar Control Test (HGBA1C) 07/20/2022 Falls Risk Assessment 07/20/2022 Hepatitis C Screening 07/20/2022 Medicare Annual Wellness Visit 07/20/2022 Social Influencers of Health Screening 07/20/2022 Diabetes: Annual GFR (Glomerular Filtration Rate) 02/25/2023 02/25/2022 Hypertension/CHF/CAD Annual BMP Blood Test 02/25/2023 02/25/2022 COVID-19 Vaccine ( season) 2024 Depression Screening 08/10/2024 Influenza Vaccine (#1) 2025 , 05/07/2020, 03/30/2019, Additional history exists RSV [...] Test (02/25/2022) Annual BMP Blood Test abstracted us Historical Provider HEALTH MAINTENANCE Final Result from Last 3 Months or Most Recently Relevant to Health Maintenance Insurance MEDICARE Care Teams Procurement Representative Relationship Specialty Start Date End Date David Morton MD [address] [place], [place] [id number] PCP - General Internal Medicine 03/17/18
--- OUTSIDE RECORDS SUMMARY | 2025-03-14 07:54 | XMS_ITS | Patient Health Record ---
Author Organization [facility] Address [address] [place] [address] Care Team Providers Care Program Management Specialist Name Role Phone Selene OQUENDO, David Primary Care Provider Todd Shepherd Unavailable [phone] Reason For Referral No Information Medications Medication [...] Problem History of adenomatous polyp of colon (468230384) History of adenomatous polyp of colon (V12.72) Active confirmed Plan Of Treatment Future Test Test Name Order Date COLONOSCOPY 07/06/2012 Insurance Providers Payer Name Payer Address Payer Phone Subscriber Number Group Number Insured Name Patient Relationship to Insured Coverage Start Date Coverage End Date [facility] [address] CLAUS RAE [id number] BRETT BOWERS Self - patient is the insured Medical (General) History Medical History History ICD Code Colonoscopy 05/04/2006-1 tubular adenoma removed Hypertension Hyperlipidemia Denies [place],DM,CVA,Lung disease,renal dise ase Surgical History Surgery Date(Month/Year) Hernia surgery Broken leg
[2025-03-14 08:05] LABS: MANUAL DIFF FLAG NO
[2025-03-14 08:40] LABS: Hematocrit 38.6 % (42.0-52.0); Hemoglobin 13.3 g/dl (14.0-18.0); Imm Gran Abs Auto 0.02 X10*3/uL (0.00-0.03); Imm Gran Pct Auto 0.4 % (0.0-0.4); Lymphocytes Absolute Auto 0.9 X10*3/uL (1.2-4.9); Mean Corpuscular HGB Conc 34.5 g/dl (31.0-36.0); Mean Corpuscular Hemoglobin 32.3 pg (27.0-33.0); Mean Corpuscular Volume 93.7 fL (80.0-98.0); NRBC Abs Auto 0.000 X10*3/uL (0.0-0.012); NRBC Pct Auto 0.0 /100WBC (0.0-0.2); Platelet Count 229 X10*3/uL (160-400); Red Blood Count 4.12 X10*6/uL (4.60-5.80); White Blood Count 4.8 X10*3/uL (4.8-10.8)
[2025-03-14 08:51] LABS: Appearance Urine Clear; Glucose Urine UA Negative (Negative); PH 5.0 (5.0-9.0); Specific Gravity - Urine 1.010 (1.005-1.025)
[2025-03-14 09:00] LABS: Hemoglobin A1C 180.8465 umol/L; Total Hemoglobin (HGBA1C) 3516.1788 umol/L
[2025-03-14 09:19] LABS: Alanine Aminotransferase 28 U/L (0-40); Albumin Level 4.6 g/dL (3.5-5.0); Alkaline Phosphatase 69 U/L (39-117); Anion Gap 11 (12-20); Aspartate Amino Transferase 27 U/L (5-37); Blood Urea Nitrogen 6 mg/dL (9-16); Calcium 9.2 mg/dL (8.4-10.2); Carbon Dioxide 26 mmol/L (22-29); Chloride 103 mmol/L (96-108); Cholesterol 141 mg/dL (<200); Estimated Glomerular Filt Rate > 60; HDL Cholesterol 35 mg/dL (>40); Potassium 4.4 mmol/L (3.3-5.1); Sodium 136 mmol/L (135-145); Total Protein 7.3 g/dL (6.5-8.0); Triglycerides 175 mg/dL (<150)
[2025-03-14 09:38] LABS: Microalbum/Creatinine Ratio Ur 12.2 ug/mg cr (<30)
[2025-03-14 09:43] LABS: Folate 7.2 ng/mL (> or = 4.0); Vitamin B12 338 pg/mL (200-900)
[2025-03-17 18:18] LABS: Intrinsic Factor Antibodies Negative (Negative)
== END 2025-03-14 07:52 | disposition home or self-care (01) ==
LOC: HO.LAB 07:51
PROVIDERS: PCP Internal Medicine; Visit Provider Internal Medicine
DX: R30.0 Dysuria (principal); E53.8 Deficiency of other specified B group vitamins; E11.9 Type 2 diabetes mellitus without complications; D64.9 Anemia, unspecified; E78.00 Pure hypercholesterolemia, unspecified; E55.9 Vitamin D deficiency, unspecified; R17 Unspecified jaundice
CPT/HCPCS: 36415; 80053; 80061; 81003; 82043; 82248; 82306; 82570; 82607; 82746; 83036; 83921; 84443; 85025; 86340; 96372; J3420

== ENCOUNTER 2025-03-14 08:34 | Outpatient (AMB) | payer MEDICARE, OTHER, SELFPAY ==
--- NOTE | 2025-03-14 08:44 | AM.OFFVISNUR ---
Intake Visit Reasons: B12 Shot Allergies No Known Allergies Allergy (Verified 12/13/24 12:52) Office Meds cyanocobalamin (vitamin B-12) 1,000 mcg/mL injection solution Performing Provider: John Barry MD [facility] Administered by: Kathryn Duke LPN on 03/14/25 08:44 Dose Route Admin Location Dispensed Lot Number Expiration Date [facility] Horticultural Therapist 1,000 mcg IM left deltoid 1 mL [id number] 07/09/27 90054-198-27 [employer] Total Dispensed Waste 1 mL 0 % Assessment & Plan Assessment & Plan Orders: Orders AMB Vitamin B12 Injection Patient Supplied Today E53.8 - Deficiency of other specified B group vitamins Coding
== END 2025-03-14 08:41 | disposition home or self-care (01) ==
LOC: HO.HMCH 08:35
PROVIDERS: PCP Internal Medicine; Visit Provider Internal Medicine
DX: E53.8 Deficiency of other specified B group vitamins (principal)

== ENCOUNTER 2025-04-12 12:12 | Outpatient (AMB) | payer MEDICARE, OTHER, SELFPAY ==
[2025-04-12 12:23] VITALS: BP 156/80; PULSE 76; O2SAT 98; BMI 28.8
--- NOTE | 2025-04-12 12:23 | MHC.PC.OV ---
Vital Signs 04/12/25 12:23 04/12/25 13:04 Height 5 ft 5 in Weight 173 lb BMI 28.8 BP 156/80 H 120/78 Blood Pressure Location Lt brachial Lt brachial Position Sitting Sitting Pulse 76 Pulse Source Pulse Oximeter Pulse Oximetry (%) 98 Oxygen Delivery Method Room Air Intake Visit Reasons: 4mth f/u Allergies No Known Allergies Allergy (Verified 04/12/25 12:50) Medication List - Last Reconciled 04/12/25 by John Barry MD aspirin 81 mg PO DAILY atenolol 100 mg PO DAILY atorvastatin 80 mg PO DAILY 90 days blood sugar diagnostic (FreeStyle Lite Strips) test blood sugars once a day citalopram 20 mg PO DAILY cyanocobalamin (vitamin B-12) 1,000 mcg subcutaneously weekly x 4 weeks. Then once per month. 4 weeks lisinopril 40 mg PO DAILY metformin 1,000 mg (2 x 500 mg) PO BID Tobacco use date assessed: 04/12/25 Fall risk assessment: No Falls in past year Last assessed Fall Risk: 04/12/25 Dental Screening Dental Screen Date: 12/13/24 [facility] HPI Details Patient comes in today for her follow up visit States that he feels okay He denies any headaches or dizziness Denies any chest pains, no SOB No nausea/vomiting, no abdominal pain No change in bowel habits noted Needs all of his Rx refilled as all of his Rx are still under Dr. Morton's name He had his follow up lab done last month - to discuss his results [facility] Medical History Overweight (BMI 25.0-29.9) Anxiety disorder Vitamin B12 deficiency Mixed hyperlipidemia Essential hypertension Diabetes mellitus Surgical History History of colonoscopy History of cataract surgery History of ankle surgery History of rectal polypectomy History of inguinal hernia repair Family History Father Stroke Mother Stroke Brother Colon polyps Brother Prostate cancer Brother CAD (coronary artery disease) Social History Housing: House Alcohol intake: current Alcohol intake frequency: 0-2 drinks per day Patient Tobacco Use Status: Never used Tobacco Tobacco use type: Cigarette e-Cigarette/Vaping Use: Never Used Second Hand Smoke Exposure: No service: Yes Current occupational status: retired Cognitive needs: No Hearing needs: No Vision needs: No Questionnaire PHQ-9 Over the last 2 weeks, how often have you been bothered by any of the following problems? 1. Little interest or pleasure in doing things: not at all 2. Feeling down, depressed, or hopeless: not at all 3. Trouble falling or staying asleep, or sleeping too much: more than half the days 4. Feeling tired or having little energy: not at all 5. Poor appetite or overeating: several days 6. Feeling bad about yourself - or that you are a failure or have let yourself or your family down: not at all 7. Trouble concentrating on things, such as reading the newspaper or watching television: more than half the days 8. Moving or speaking so slowly that other people could have noticed. Or the opposite - being so fidgety or restless that you have been moving around a lot more than usual: not at all 9. Thoughts that you would be better off or of hurting yourself in some way: not at all Total score: 5 Depression Screening Interpretation: Positive Depression Screening Follow-up: Existing condition and In treatment Depression Screening Done: Yes 84412 - PHQ-9 Billing: Yes Source: Developed by Drs. Todd Martinez, Shyann Braga, Tae Torrez and colleagues, with an educational kaylin from [employer]. Thrive Questionnaire Date Thrive assessed: 12/11/24 I am a: Patient What is your living situation today?: I have a steady place to live Within the past 12 months, did the food you bought not last and you didn't have the money to get more?: Never true Within the past 12 months, did you worry whether your food would run out before you got money to buy more?: Never true Do you have trouble paying for medicines?: No Do you have trouble getting transportation to medical appointments?: No Do you have trouble paying your heating and electricity bill?: No Do you have trouble taking care of your child, family member or friend?: No Do you have trouble with day-to-day activities such as bathing, preparing meals, shopping, managing finances, etc.?: No Are you currently unemployed and looking for a job?: No Are you interested in more education?: No Please select the resources that you would like help with: None Currently or been in a relationship where the following occur: No concerns reported THRIVE Score: 0 AUDIT C Alcohol Use Questionnaire (AUDIT-C) 1. How often do you have a drink containing alcohol?: 4 or more times a week 2. How many drinks containing alcohol do you have on a typical day when you are drinking?: 1 or 2 3. How often do you have six or more drinks on one occasion?: Never Total Score: 4 Score Reviewed/Action Taken: Yes PJ-7 AMB Questionnaire PJ-7 Date PJ - 7 assessed: 12/13/24 Source: Developed by Drs. Todd Martinez, Shyann Braga, Tae Torrez and colleagues, with an educational kaylin from [employer]. Review of Systems Const Denies chills, Denies fatigue, Denies fever(s) and Denies headache(s) ENT Denies dysphagia, Denies dizziness, Denies otalgia, Denies headache(s), Denies neck pain, Denies odynophagia and Denies sore throat Card Denies chest pain, Denies palpitations and Denies dyspnea Resp Denies chest congestion, Denies cough and Denies dyspnea GI Denies abdominal pain, Denies constipation, Denies dysphagia, Denies heartburn, Denies diarrhea, Denies nausea, Denies odynophagia and Denies vomiting Denies difficulty urinating, Denies dysuria, Denies nocturia and Denies urinary frequency Musc Denies back pain and Denies neck pain Skin/Breast Denies rash Neuro Denies dizziness and Denies headache(s) Psych Reports anxiety Endo Denies fatigue and Denies palpitations Physical exam (Primary Care) Vital Signs: Last Vital Signs Pulse 76 04/12/25 12:23 BP 120/78 04/12/25 13:04 Pulse Ox 98 04/12/25 12:23 Oxygen Delivery Method Room Air 04/12/25 12:23 BMI result Body Mass Index 28.8 Tobacco/Smoking Status: Tobacco use Status Tobacco use date assessed 04/12/25 04/12/25 12:28 Patient Tobacco Use Status Never used Tobacco 04/12/25 12:28 Tobacco use type Cigarette 04/12/25 12:28 e-Cigarette/Vaping Use Never Used 04/12/25 12:28 PHQ-9: PHQ-9 Score PHQ-9: Total score 5 04/12/25 12:54 Depression Screening Interpretation: Positive Depression Screening Follow-up: Existing condition and In treatment Thrive Assessment: Date of Thrive Assessment Date Thrive assessed 12/11/24 04/12/25 12:28 Currently or been in a relationship where the following occur: No concerns reported Const General: no acute distress and alert HENMT Ears: TM's normal bilaterally and EAC's normal Throat: Yes posterior oropharynx normal and Yes tonsils normal (no TP congestion) Neck Neck: Yes supple and No lymphadenopathy Thyroid: Thyroid normal Resp Auscultation: clear to auscultation bilaterally, no rales and no wheezes Cardio Rate: regular rate Rhythm: regular rhythm Heart sounds: no murmurs GI Palpation (GI): Soft to palpation and nontender Auscultation: normal bowel sounds General: Yes no CVA tenderness Back/Spine/Pelvis Back: no CVA tenderness Thoracic/Lumbar Spine: No lumbar spinal tenderness Skin Rashes: no rashes Extrem General: Yes no clubbing, cyanosis or edema Office Meds cyanocobalamin (vitamin B-12) 1,000 mcg/mL injection solution Performing Provider: John Barry MD [facility] Administered by: Kathryn Duke LPN on 04/12/25 12:44 Dose Route Admin Location Dispensed Lot Number Expiration Date [facility] Fruit Harvester Machine Operator 1,000 mcg IM left deltoid 1 mL [id number] 07/09/27 82538-376-01 V[employer] THERA Total Dispensed Waste 1 mL 0 % Results Reviewed Results Reviewed: Laboratory Tests 03/14/25 03/14/25 08:04 08:10 WBC 4.8 Hgb 13.3 L Hct 38.6 L Plt Count 229 Sodium 136 Potassium 4.4 Creatinine 0.74 Estimated GFR > 60 Fasting Glucose 206 H Hemoglobin A1c % 6.9 H Calcium 9.2 Total Bilirubin 1.4 H AST 27 ALT 28 Triglycerides 175 H Cholesterol 141 LDL Cholesterol, Calc 71 HDL Cholesterol 35 L Vitamin B12 338 25-OH Vitamin D Total 27.9 L TSH 2.93 Ur Specific [place] 1.010 Urine Protein Negative Urine Glucose (UA) Negative Urine Blood Negative Urine Nitrite Negative Ur Leukocyte Esterase Negative Microalb/Creat Ratio 12.2 Coding Diagnoses Vitamin B12 deficiency E53.8 Additional Codes PHQ-9 - 74739 - PHQ-9 Billing: Yes ([id number]) Assessment & Plan Assessment & Plan (1) Vitamin B12 deficiency: Code(s): E53.8 - Deficiency of other specified B group vitamins Category: Medical Plan Follow up in 4 months Orders: Orders AMB Vitamin B12 Injection Patient Supplied Today E53.8 - Deficiency of other specified B group vitamins Comprehensive [place]. Panel Fast 4 Months E78.00 - Pure hypercholesterolemia, unspecified TSH reflex Free T4 4 Months E78.00 - Pure hypercholesterolemia, unspecified Microalbumin, Random (w Creat) 4 Months E11.9 - Type 2 diabetes mellitus without complications Vitamin B12 and Folate 4 Months E53.8 - Deficiency of other specified B group vitamins Magnesium 4 Months E83.42 - Hypomagnesemia Hemoglobin A1c 4 Months E11.9 - Type 2 diabetes mellitus without complications Complete Blood Count Auto Diff 4 Months D64.9 - Anemia, unspecified Lipase 4 Months R10.9 - Unspecified abdominal pain UA CC w/rflx Micro + Cult 4 Months R30.0 - Dysuria Vitamin D 25-OH Total 4 Months E55.9 - Vitamin D deficiency, unspecified Medications: Changed From lisinopril 40 mg PO DAILY To lisinopril 20 mg PO BID 180 tabs 3RF 90 days From atenolol 100 mg PO DAILY 90 tabs 8RF To atenolol 100 mg PO DAILY 90 tabs 3RF 90 days From metformin 1,000 mg (2 x 500 mg) PO BID 180 tabs 2RF To metformin 1,000 mg (2 x 500 mg) PO BID 360 tabs 3RF 90 days From cyanocobalamin (vitamin B-12) 1,000 mcg subcutaneously weekly x 4 weeks. Then once per month. 4 weeks 4 mL 5RF To cyanocobalamin (vitamin B-12) 1,000 mcg subcut QMONTH 1 mL 11RF 30 days From citalopram 20 mg PO DAILY 60 tabs 7RF To citalopram 20 mg PO DAILY 90 tabs 1RF 90 days Refilled atorvastatin 80 mg PO DAILY 90 tabs 3RF 90 days
[2025-04-12 13:04] VITALS: BP 120/78
--- OUTSIDE RECORDS SUMMARY | 2025-04-12 14:48 | XMS_ITS | Patient Health Record ---
Author Organization [facility] Address [address] [place] [address] Care Team Providers Care Wool Buyer Name Role Phone Selene OQUENDO, David Primary Care Provider Todd Shepherd Unavailable [phone] Reason For Referral No Information Medications Medication [...] Status Risk Notes Problem Colon cancer screening (788706124) Colon cancer screening (V76.51) Active confirmed Problem History of adenomatous polyp of colon (006980876) History of adenomatous polyp of colon (V12.72) Active confirmed Plan Of Treatment Future Test Test Name Order Date COLONOSCOPY 07/06/2012 Insurance Providers Payer Name Payer Address Payer Phone Subscriber Number Group Number Insured Name Patient Relationship to Insured Coverage Start Date Coverage End Date [facility] [address] CLAUS RAE [id number] [phone] [id number] BRETT BOWERS Self - patient is the insured Medical (General) History Medical History History ICD Code Colonoscopy 05/04/2006-1 tubular adenoma removed Hypertension Hyperlipidemia Denies [place],DM,CVA,Lung disease,renal dise ase Surgical History Surgery Date(Month/Year) Hernia surgery Broken leg
== END 2025-04-12 13:11 | disposition home or self-care (01) ==
LOC: HO.HMCH 12:13
PROVIDERS: PCP Internal Medicine; Visit Provider Internal Medicine
DX: E53.8 Deficiency of other specified B group vitamins (principal)

== ENCOUNTER → 2025-04-12 12:12 | Outpatient (BNVA) | payer MEDICARE, OTHER, SELFPAY | PROVIDERS: PCP Internal Medicine; Visit Provider Internal Medicine | DX: I25.10 Atherosclerotic heart disease of native coronary artery without angina pectoris (principal); I10 Essential (primary) hypertension; E11.9 Type 2 diabetes mellitus without complications; E78.2 Mixed hyperlipidemia; E53.8 Deficiency of other specified B group vitamins; F41.1 Generalized anxiety disorder; E66.3 Overweight; E83.42 Hypomagnesemia; D64.9 Anemia, unspecified; R30.0 Dysuria; R10.9 Unspecified abdominal pain; Z68.28 Body mass index [BMI] 28.0-28.9, adult | CPT/HCPCS: 96127; 96372; 99212; J3420 ==

== ENCOUNTER 2025-05-10 08:49 | Outpatient (AMB) | payer MEDICARE, OTHER, SELFPAY ==
--- NOTE | 2025-05-10 08:53 | AM.OFFVISNUR ---
Intake Visit Reasons: B-12 shot Allergies No Known Allergies Allergy (Verified 04/12/25 12:50) Office Meds cyanocobalamin (vitamin B-12) 1,000 mcg/mL injection solution Performing Provider: John Barry MD [facility] Administered by: Audrey Moser RN on 05/10/25 08:53 Dose Route Admin Location Dispensed Lot Number Expiration Date [facility] Loop Cutter 1,000 mcg IM 1 mL [id number] 07/09/27 56154-935-34 [employer] Total Dispensed Waste 1 mL 0 % Assessment & Plan Assessment & Plan Orders: Orders AMB Vitamin B12 Injection Patient Supplied Today E53.8 - Deficiency of other specified B group vitamins Coding
--- OUTSIDE RECORDS SUMMARY | 2025-05-10 09:24 | XMS_ITS | Clinical Summary ---
Author Organization [address] [place] [address] Address [address] [place] [address] Phone Care Team Providers Care Structural Steel Fitter Name Role Phone John Barry MD Primary Care Provider [phone] Allergies No known active allergies Medications atorvastatin [...] Take 81 mg by mouth daily. Active lisinopril (PRINIVIL,ZESTR IL) 40 mg tabletIndicatio ns:Atherosclero tic heart disease of galena coronary artery without angina pectoris TAKE 1 TABLET BY MOUTH EVERY DAY 90 tablet 5 Active cyanocobalamin, vitamin B-12, (VITAMIN B-12 INJ) Inject as directed every 30 (thirty) days. Active nitroglycerin (NITROSTAT) 0.[address] 1 Tab under the tongue every 5 minutes as needed for Chest pain. 8 04/18/20 25 Discontinu ed(Prescri stephanie Discontinu ed) Active Problems Problem Noted Date Diagnosed Date Cervical spine disease 04/05/2018 Coronary artery disease invo lving galena coronary artery of galena heart without angina pectoris 04/05/2018 Overview (04/19/2025): - Inferior STEMI 02/2018 while on vacation at [facility] -Cardiac catheterization at that time showed 90% mid RCA stenosis receiving a TITI. Other vessels showed 60% mid LAD shortly after D1 (IFR -0.94), 50-60% D1 stenosis - His most recent echocardiogram is from 02/2024 showing normal LVEF 55-60%, normal LV size and wall thickness, hypokinesis of the mid inferior, mid inferoseptal, apical inferior and apical septal nelson, normal biatrial size, without hemodynamically significant valve disease. Assessment & Plan (04/19/2025 8:32 AM EDT): The patient has no anginal symptoms to his current albeit somewhat limited MET workload. His family does state that he has some memory issues, but they are unaware of any concerning symptoms as well. His daughter states that he is adherent to his medication plan and does not miss doses.. Continue his aspirin, beta-estephanie, statin and EDAGR inhibitor. He is encouraged to increase his physical activity in any way possible. On a suggestion to walk to the corner store to get his morning paper is a great one. I also suggested marching in place while he watches TV as a way of increasing his movement and steps. He will try this. He is commended for the times that he goes out to the store with his or for walks at the mall. The patient has family will notify us of any changes in his current condition, symptoms, or activity tolerance Diabetes mellitus ([facility] V24, [facility] V28) Essential hypertension 04/05/2018 Assessment & Plan (04/19/2025 8:32 AM EDT): Laney indicates that the patient does have nerves/anxiety surrounding blood pressure measurements. However, on recheck, his blood pressure is much better controlled. Therefore, would prioritize focus movement/exercise as a means of controlling his blood pressure along with improving his general risk profile. For now, continue his atenolol and lisinopril at current doses. If needed, could add amlodipine for better blood pressure control Pure hypercholesterolemia 04/05/2018 Assessment & Plan (04/19/2025 8:33 AM EDT): Reasonably well-controlled lipid profile on last check through his PCPs office. Continue statin at current dose. Goal LDL should be less than 70 (he is near goal) or ideally a little bit lower. If his LDL goes any higher, would switch to rosuvastatin. Encounters Date Type Department Care Team Description 04/18/2025 10:40 AM EDT Office Visit [facility] [address] [place] [address] Nallely Galeas NP Essential hypertension (Primary Dx); Coronary artery disease involving galena coronary artery of galena heart without angina pectoris; Pure hypercholesterolemia from Last 3 Months Family History Medical History Relation Name Comments [...] Sign Reading Time Taken Comments Blood Pressure 138/78 04/18/2025 10:39 AM EDT Pulse 59 04/18/2025 10:39 AM EDT Temperature - - Respiratory Rate - - Oxygen Saturation 99% 04/18/2025 10:39 AM EDT Inhaled Oxygen Concentration - - Weight 78.5 kg (173 lb) 04/18/2025 10:39 AM EDT Height 162.6 cm (5' 4 ) 04/18/2025 10:39 AM EDT Body Mass Index 29.7 04/18/2025 10:39 AM EDT Plan of Treatment Health Maintenance Due Date Last Done Comments Colorectal Cancer Screening: Colonoscopy 1951 Diabetes: Annual Foot Exam 1961 Diabetes: Annual Retina Eye Exam 1961 DTaP,Tdap,and Td Vaccines (1 - Tdap) 1970 Pneumococcal Vaccine: 50+ Years (1 of 2 - PCV) 1970 Zoster Vaccines (1 of 2) 2001 Abdominal Aortic Aneurysm (AAA) Screen 07/20/2022 Cholesterol Screening (Lipid Panel) 07/20/2022 Diabetes: Annual Urine Albumin-Creatinine Ratio (uACR) 07/20/2022 Diabetes: Blood Sugar Control Test (HGBA1C) 07/20/2022 Falls Risk Assessment 07/20/2022 Hepatitis C Screening 07/20/2022 Medicare Annual Wellness Visit 07/20/2022 Social Influencers of Health Screening 07/20/2022 Diabetes: Annual GFR (Glomerular Filtration Rate) 02/25/2023 02/25/2022 Hypertension/CHF/CAD Annual BMP Blood Test 02/25/2023 02/25/2022 Depression Screening 08/10/2024 COVID-19 Vaccine ( season) 2025 06/11/2021, 11/08/2020, 10/11/2020 Influenza Vaccine (#1) 2025 , 05/19/2023, 05/15/2022, Additional history exists RSV Immunization Adult Patients [...] Procedure Name Priority Date/Time Associated Diagnosis Comments ECG 12-LEAD Routine 04/19/2025 8:33 AM EDT Essential hypertension EXTERNAL CLINICAL LAB Routine 03/14/2025 9:20 AM EDT ANNUAL BMP BLOOD TEST Routine 02/25/2022 from Last 3 Months or Most Recently Relevant to Health Maintenance Results * ECG 12 lead (04/19/2025 8:33 AM EDT) Ventricular Rate ECG 59 BPM GEMUSE Atrial Rate 59 BPM GEMUSE P-R Interval 164 ms GEMUSE QRS Duration 92 ms GEMUSE Q-T Interval 428 ms GEMUSE QTc 423 ms GEMUSE P Wave [place] 57 degrees GEMUSE R [place] 17 degrees GEMUSE T [place] 73 degrees GEMUSE ECG Interpretation Sinus bradycardia Otherwise normal ECG No previous ECGs available Confirmed by Liang RASHID JOHN ([id number]) on 05/01/2025 8:22:28 AM GEMUSE 04/18/2025 10:4 3 AM EDT 05/01/2025 8:22 AM EDT Nallely Galeas NP ECG ORDERABLES Edited Result - Final GEMUSE * External clinical lab (03/14/2025 9:20 AM EDT) Historical Provider LAB BLOOD ORDERABLES Maureen l Result * Annual BMP Blood Test (02/25/2022) Annual BMP Blood Test abstracted Historical Provider HEALTH MAINTENANCE Final Result from Last 3 Months or Most Recently Relevant to Health Maintenance Insurance MEDICARE [facility] Care Teams Structural Steel Fitter Relationship Specialty Start Date End Date John Barry MD [address] [place] PCP - General Internal Medicine 04/18/25
--- OUTSIDE RECORDS SUMMARY | 2025-05-10 09:24 | XMS_ITS | Patient Health Record ---
Author Organization [facility] Address [address] [place] [address] Care Team Providers Care Account Support Associate Name Role Phone Selene OQUENDO, David Primary Care Provider Todd Shepherd Unavailable [phone] Reason For Referral No Information Medications Medication [...] Status Risk Notes Problem Colon cancer screening (484175119) Colon cancer screening (V76.51) Active confirmed Problem History of adenomatous polyp of colon (733734734) History of adenomatous polyp of colon (V12.72) Active confirmed Plan Of Treatment Future Test Test Name Order Date COLONOSCOPY 07/06/2012 Insurance Providers Payer Name Payer Address Payer Phone Subscriber Number Group Number Insured Name Patient Relationship to Insured Coverage Start Date Coverage End Date [facility] [address] CLAUS RAE [id number] BRETT BOWERS Self - patient is the insured Medical (General) History Medical History History ICD Code Colonoscopy 05/04/2006-1 tubular adenoma removed Hypertension Hyperlipidemia Denies [place],DM,CVA,Lung disease,renal dise ase Surgical History Surgery Date(Month/Year) Hernia surgery Broken leg
== END 2025-05-10 09:01 | disposition home or self-care (01) ==
LOC: HO.HMCH 08:50
PROVIDERS: PCP Internal Medicine; Visit Provider Internal Medicine
DX: E53.8 Deficiency of other specified B group vitamins (principal)

== ENCOUNTER → 2025-05-10 08:49 | Outpatient (BNVA) | payer MEDICARE, OTHER, SELFPAY | PROVIDERS: PCP Internal Medicine; Visit Provider Internal Medicine | DX: E53.8 Deficiency of other specified B group vitamins (principal) | CPT/HCPCS: 96372; J3420 ==

== ENCOUNTER 2025-06-14 08:46 | Outpatient (AMB) | payer MEDICARE, OTHER, SELFPAY ==
--- NOTE | 2025-06-14 08:47 | AM.OFFVISNUR ---
Intake Visit Reasons: B12 shot Allergies No Known Allergies Allergy (Verified 04/12/25 12:50) Office Meds cyanocobalamin (vitamin B-12) 1,000 mcg/mL injection solution Performing Provider: John Barry MD [place] [facility] [place] [facility] Administered by: Audrey Moser RN on 06/14/25 08:47 Dose Route Admin Location Dispensed Lot Number Expiration Date [facility] [place] [employer] Member 1,000 mcg IM 1 mL [id number] 11/08/27 42207-891-31 [employer] Total Dispensed Waste 1 mL 0 % Assessment & Plan Assessment & Plan Orders: Orders AMB Vitamin B12 Injection Patient Supplied Today E53.8 - Deficiency of other specified B group vitamins Coding
--- OUTSIDE RECORDS SUMMARY | 2025-06-14 09:17 | XMS_ITS | Clinical Summary ---
Author Organization [address] [place] [address] Address [address] [place] [address] Phone Care Team Providers Care Janitorial Assistant Name Role Phone John Barry MD Primary Care Provider Allergies No known active allergies Medications atorvastatin [...] Take 81 mg by mouth daily. Active cyanocobalamin , vitamin B-12, (VITAMIN B-12 INJ) Inject as directed every 30 (thirty) days. 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 Continue his aspirin, beta-estephanie, statin and EDGAR inhibitor. He is encouraged to increase his [...] condition, symptoms, or activity tolerance Diabetes mellitus ([facility] V24, [facility] V28) Essential hypertension 04/05/2018 Assessment & Plan [...] Description 04/18/2025 10:40 AM EDT Office Visit [facility] - [address] [place] [address] Nallely Galeas NP Essential hypertension (Primary Dx); Coronary artery disease involving stebbins coronary artery of stebbins heart without angina pectoris; Pure hypercholesterolemia from Last 3 Months Family History Medical History Relation Name Comments Coronary artery disease Brother 1 had an NE at 42, CABG, PCI Coronary artery disease [...] GEMUSE QTc 423 ms GEMUSE P Wave [place] 57 degrees GEMUSE R [place] 17 degrees GEMUSE T [place] 73 degrees GEMUSE ECG Interpretation Sinus bradycardia Otherwise normal ECG No previous ECGs available Confirmed by Liang RASHID JOHN ([id number]) on 05/01/2025 8:22:28 AM GEMUSE 04/18/2025 10:4 [...] Recently Relevant to Health Maintenance Insurance MEDICARE [facility] Care Teams Janitorial Assistant Relationship Specialty Start Date End Date John Barry MD [address] [facility] [address] [place] PCP - General Internal Medicine 04/18/25
--- OUTSIDE RECORDS SUMMARY | 2025-06-14 09:17 | XMS_ITS | Patient Health Record ---
Author Organization [facility] Address [address] [place] [address] Care Team Providers Care Paper Folding Machine Operator Name Role Phone Selene OQUENDO, David Primary Care Provider Todd Shepherd Unavailable [phone] Reason For Referral No Information Medications Medication SIG (Take, Route, Fr equency, Duration) Notes Start Date End Date Status Atenolol 08/10/2024 08/10/2024 Active hydroCHLOROthiazide 08/10/2024 1 Active Aspirin 81 MG Orally; Duration: 30 day(s) Active Atorvastatin Calcium 08/10/2024 08/10/99 01 Active MoviPrep 100 GM as directed Orally o nce; Duration: 1 dose 07/06/2012 Active Problems Problem Type SNOMED Code ICD Code Onset Dates Problem Status W/U Status Risk Notes Problem Colon cancer screening (898816274) Colon cancer screening (V76.51) Active confirmed Problem History of adenomatous polyp of colon (396052983) History of adenomatous polyp of colon (V12.72) Active confirmed Plan Of Treatment Future Test Test Name Order Date COLONOSCOPY 07/06/2012 Insurance Providers Payer Name Payer Address Payer Phone Subscriber Number Group Number Insured Name Patient Relationship to Insured Coverage Start Date Coverage End Date [facility] [employer] [facility] [address] CLAUS RAE [id number] BRETT BOWERS Self - patient is the insured Medical (General) History Medical History History ICD Code Colonoscopy 05/04/2006-1 tubular adenoma removed Hypertension Hyperlipidemia Denies [place],DM,CVA,Lung disease,renal dise ase Surgical History Surgery Date(Month/Year) Hernia surgery Broken leg
== END 2025-06-14 08:57 | disposition home or self-care (01) ==
LOC: HO.HMCH 08:48
PROVIDERS: PCP Internal Medicine; Visit Provider Internal Medicine
DX: E53.8 Deficiency of other specified B group vitamins (principal)

== ENCOUNTER → 2025-06-14 08:46 | Outpatient (BNVA) | payer MEDICARE, OTHER, SELFPAY | PROVIDERS: PCP Internal Medicine; Visit Provider Internal Medicine | DX: E53.8 Deficiency of other specified B group vitamins (principal) | CPT/HCPCS: 96372; J3420 ==

== ENCOUNTER 2025-07-13 08:41 | Outpatient (AMB) | payer MEDICARE, OTHER, SELFPAY ==
--- NOTE | 2025-07-13 08:50 | AM.OFFVISNUR ---
Intake Visit Reasons: B12 Shot Allergies No Known Allergies Allergy (Verified 04/12/25 12:50) Office Meds cyanocobalamin (vitamin B-12) 1,000 mcg/mL injection solution Performing Provider: John Barry MD Performing Location[facility] [place] [facility] Administered by: Kathryn Duke LPN on 07/13/25 08:50 Dose Route Admin Location Dispensed Lot Number Expiration Date [facility] Incident Response Lead 1,000 mcg IM left deltoid 1 mL [id number] 11/07/27 70015-696-37 [employer] Total Dispensed Waste 1 mL 0 % Assessment & Plan Assessment & Plan Orders: Orders AMB Vitamin B12 Injection Patient Supplied Today E53.8 - Deficiency of other specified B group vitamins Coding
== END 2025-07-13 08:49 | disposition home or self-care (01) ==
LOC: HO.HMCH 08:41
PROVIDERS: PCP Internal Medicine; Visit Provider Internal Medicine
DX: E53.8 Deficiency of other specified B group vitamins (principal)

== ENCOUNTER → 2025-07-13 08:41 | Outpatient (BNVA) | payer MEDICARE, OTHER, SELFPAY | PROVIDERS: PCP Internal Medicine; Visit Provider Internal Medicine | DX: E53.8 Deficiency of other specified B group vitamins (principal) | CPT/HCPCS: 96372; J3420 ==